=== PATIENT | male | born 1955 | race Caucasian/White ===

== ENCOUNTER 2017-03-11 22:53 | Inpatient (IN) | payer OTHER ==
[~2017-03-11] VITALS: Ht 185.4 cm; Wt 102.5 kg
[2017-03-11 23:17] VITALS: BP 130/64; PULSE 73; RESP 16; TEMP 98.6; O2SAT 100
[2017-03-12] VITALS (13 sets, daily range): BP systolic 143–187; BP diastolic 67–95; PULSE 66–88; RESP 16–18; TEMP 97.8–99.3; O2SAT 94–100
--- NOTE | 2017-03-12 02:02 | PD ---
HPI Chief Complaint: Injury Time Seen by Provider: 01:57 Travel History International Travel<30 days: No Contact w/Intl Traveler<30days: No Traveled to known affect area: No History of Present Illness HPI 62-year-old male arrives to the ER with right knee pain. He tripped on a curb and in a twisting fashion causing sudden onset severe pain in the right knee. He has been in constant severe pain since. Movement worsens the pain severity. Palpation worsens the pain severity. The injury occurred a few hours prior to ER arrival. No head injury. Or extremity injury otherwise. [facility] Past Medical History Diabetes: Yes Endocrine: Yes (DIABETIC DIET CONTROLLED ) Gout: Yes Past Surgical History Joint Replacement: Yes (RIGHT HIP) Pacemaker: No Tympanostomy Tube: Yes Social History Alcohol Use: Yes (OCC) Tobacco Use: No (STATES HE CHEWS NOW) Substance Use: No (BEER ONLY ) Allergies-Medications (Allergen,Severity, Reaction): Coded Allergies: No Known Allergies (Verified , 05/25/16) Reported Meds & Prescriptions Reported Meds & Active Scripts Active No Active Prescriptions or Reported Medications Review of Systems Except as stated in HPI: all other systems reviewed are Neg General / Constitutional: No: Fever Musculoskeletal: Positive: Pain Physical Exam Narrative GENERAL: 22-year-old male well-nourished well-developed moderate distress SKIN: Focused skin assessment warm/dry. HEAD: Atraumatic. Normocephalic. EYES: Pupils equal and round. No scleral icterus. No injection or drainage. ENT: No nasal bleeding or discharge. Mucous membranes pink and moist. NECK: Trachea midline. No JVD. CARDIOVASCULAR: Regular rate and rhythm. No murmur appreciated. RESPIRATORY: No accessory muscle use. Clear to auscultation. Breath sounds equal bilaterally. GASTROINTESTINAL: Abdomen soft, non-tender, nondistended. Hepatic and splenic margins not palpable. MUSCULOSKELETAL: Marked swelling generalized tenderness at the right knee. 2+ dorsalis pedis bilaterally. NEUROLOGICAL: Awake and alert. No obvious cranial nerve deficits. Motor grossly within normal limits. Normal speech. PSYCHIATRIC: Appropriate mood and affect; insight and judgment normal. Data Data Last Documented VS Vital Signs Date Time Temp Pulse Resp B/P Pulse Ox O2 Delivery O2 Flow Rate FiO2 03/12/17 04:43 79 18 163/83 99 Room Air 03/11/17 23:17 98.6 Vital signs reviewed Orders Iv Access Insert/Monitor (03/12/17 02:01) Oximetry (03/12/17 02:01) Ecg Monitoring (03/12/17 02:01) Ondansetron Inj (Zofran Inj) (03/12/17 02:15) Sodium Chloride 0.9% Flush (Ns Flush) (03/12/17 02:15) Hydromorphone Pf Inj (Dilaudid Pf Inj) (03/12/17 02:15) Lidocai-Epi 1%-1:100,000 Inj (Xylocaine- (03/12/17 02:15) Canvas Knee Splint (Cks) (03/12/17 ) Knee, Ltd (1 Or 2vws) (03/12/17 ) Lidocai-Epi 1%-1:100,000 Inj (Xylocaine- (03/12/17 02:31) Comprehensive Metabolic Panel (03/12/17 03:13) Prothrombin Time / Inr (Pt) (03/12/17 03:13) Act Partial Throm Time (Ptt) (03/12/17 03:13) Ondansetron Inj (Zofran Inj) (03/12/17 03:15) Sodium Chloride 0.9% Flush (Ns Flush) (03/12/17 03:15) Hydromorphone Pf Inj (Dilaudid Pf Inj) (03/12/17 03:15) Complete Blood Count With Diff (03/12/17 03:45) Hydromorphone Pf Inj (Dilaudid Pf Inj) (03/12/17 04:30) Admit Order (Ed Use Only) (03/12/17 04:46) Consult Orthopedic (03/12/17 ) Labs Laboratory Tests Test 03/12/17 03/12/17 03:20 03:55 Prothrombin Time 11.6 SEC Prothromb Time International 1.0 RATIO Ratio Activated Partial 27.5 SEC Thromboplast Time Sodium Level 134 MEQ/L Potassium Level 3.5 MEQ/L Chloride Level 98 MEQ/L Carbon Dioxide Level 20.7 MEQ/L Anion Gap 15 MEQ/L Blood Urea Nitrogen 6 MG/DL Creatinine 0.87 MG/DL Estimat Glomerular Filtration 89 ML/MIN Rate Random Glucose 163 MG/DL Calcium Level 8.9 MG/DL Total Bilirubin 1.0 MG/DL Aspartate Amino Transf 29 U/L (AST/SGOT) Alanine Aminotransferase 31 U/L (ALT/SGPT) Alkaline Phosphatase 76 U/L Total Protein 7.7 GM/DL Albumin 3.8 GM/DL White Blood Count 14.1 TH/MM3 Red Blood Count 4.38 MIL/MM3 Hemoglobin 14.2 GM/DL Hematocrit 41.6 % Mean Corpuscular Volume 95.0 FL Mean Corpuscular Hemoglobin 32.4 PG Mean Corpuscular Hemoglobin 34.1 % Concent Red Cell Distribution Width 12.4 % Platelet Count 205 TH/MM3 Mean Platelet Volume 9.4 FL Neutrophils (%) (Auto) 83.7 % Lymphocytes (%) (Auto) 9.2 % Monocytes (%) (Auto) 6.5 % Eosinophils (%) (Auto) 0.1 % Basophils (%) (Auto) 0.5 % Neutrophils # (Auto) 11.8 TH/MM3 Lymphocytes # (Auto) 1.3 TH/MM3 Monocytes # (Auto) 0.9 TH/MM3 Eosinophils # (Auto) 0.0 TH/MM3 Basophils # (Auto) 0.1 TH/MM3 CBC Comment AUTO DIFF Differential Comment AUTO DIFF CONFIRMED Platelet Estimate NORMAL Platelet Morphology Comment NORMAL Red Cell Morphology Comment NORMAL MDM Medical Decision Making Medical Screen Exam Complete: Yes Emergency Medical Condition: Yes Medical Record Reviewed: Yes Differential Diagnosis Femur fracture, tibia fracture, compartment syndrome, arterial avulsion, ligamentous injury Narrative Course CBC & BMP Diagram 03/12/17 03:20 03/12/17 03:55 LFTs normal INR 1.0 Last 24 hours Impressions Knee X-Ray 03/12/17 0000 Signed Impressions: Service Date/Time: Sunday, March 12, 2017 02:18 - CONCLUSION: 1. Comminuted intra-articular fracture of distal femur with mild displacement. Also mildly displaced medial tibial plateau fracture. John Kwan MD Patient will be admitted for treatment of his right lower extremity injury. Long posterior splint applied with ice cuff. Case discussed with Dr Choudhary. Diagnosis Primary Impression: Femur fracture Qualified Code: S72.351A - Closed displaced comminuted fracture of shaft of right femur, initial encounter Additional Impression: Tibia fracture Qualified Code: S82.101A - Closed fracture of proximal end of right tibia, unspecified fracture morphology, initial encounter Admitting Information Admitting Physician Requests: Admit Scripts No Active Prescriptions or Reported Meds Federico Wolf MD March 12, 2017 02:02
[2017-03-12] MEDS ORDERED: LIDOCAINE 1%/EPINEPHrine 1:100,000 SOLN 20 ML VIAL INFIL ONE (02:15)
[2017-03-12] MEDS ORDERED: ONDANSETRON HCL 4 MG/2 ML VIAL IVP ONE ×2 (02:15→03:15)
[2017-03-12] MEDS ORDERED: SODIUM CHLORIDE 0.9% FLUSH 10 ML FLUSH IVF PRN ×2 (02:15→03:15)
[2017-03-12] MEDS ORDERED: HYDROmorphone HCL PF 1 MG/ML VIAL IVS ONE ×2 (02:15→03:15)
[2017-03-12] MEDS ORDERED: LIDOCAINE 1%/EPINEPHrine 1:100,000 SOLN 20 ML VIAL ONE (02:31)
--- NOTE | 2017-03-12 02:58 | RADRPT ---
EXAM DATE/TIME: 03/12/2017 02:18 [facility] COMPARISON: No previous studies available for comparison. INDICATIONS : Patient complains of right knee pain. States he fell last night landing on right knee. MEDICAL HISTORY : None. SURGICAL HISTORY : None. ENCOUNTER: Initial ACUITY: 2 days PAIN SCORE: 10/10 LOCATION: Right Knee FINDINGS: There is a comminuted intra-articular fracture of the distal femur and a slightly comminuted fracture through the medial tibial plateau. Joint effusion present. Bones are osteopenic. CONCLUSION: 1. Comminuted intra-articular fracture of distal femur with mild displacement. Also mildly displaced medial tibial plateau fracture. John Kwan MD on March 12, 2017 at 2:55 Board Certified Radiologist. This report was verified electronically.
[2017-03-12 03:57] LABS: ALT (GPT) 31 U/L (12-78); ANION GAP 15 MEQ/L (5-15); AST (GOT) 29 U/L (15-37); BICARBONATE 20.7 MEQ/L (21.0-32.0); BLOOD UREA NITROGEN 6 MG/DL (7-18); CHLORIDE 98 MEQ/L (98-107); GLOMERULAR FILTRATION RATE 89 ML/MIN (>89); POTASSIUM 3.5 MEQ/L (3.5-5.1); SODIUM (NA) 134 MEQ/L (136-145)
[2017-03-12 03:59] LABS: ALKALINE PHOSPHATASE 76 U/L (45-117)
[2017-03-12 04:07] LABS: APTT (PATIENT) 27.5 SEC (24.3-30.1); PROTHROMBIN TIME - PATIENT 11.6 SEC (9.8-11.6)
[2017-03-12 04:24] LABS: AUTOMATED NEUTROPHIL # 11.8 TH/MM3 (1.8-7.7); BASOPHIL # 0.1 TH/MM3 (0-0.2); BASOPHIL % 0.5 % (0.0-2.0); EOSINOPHIL % 0.1 % (0.0-4.0); HEMATOCRIT 41.6 % (39.0-51.0); LYMPH % 9.2 % (9.0-44.0); LYMPHOCYTE # 1.3 TH/MM3 (1.0-4.8); MEAN CORPUSCULAR HEMOGLOBIN 32.4 PG (27.0-34.0); MEAN CORPUSCULAR HGB CONC 34.1 % (32.0-36.0); MONO % 6.5 % (0.0-8.0); NEUT % 83.7 % (16.0-70.0); PLATELET COUNT 205 TH/MM3 (150-450); RED BLOOD COUNT 4.38 MIL/MM3 (4.50-5.90); RED CELL DISTRIBUTION WIDTH 12.4 % (11.6-17.2); WHITE BLOOD COUNT 14.1 TH/MM3 (4.0-11.0)
[2017-03-12] MEDS ORDERED: HYDROmorphone HCL PF 1 MG/ML VIAL IV PUSH ONE (04:30)
[2017-03-12 04:31] LABS: HEMO FLAGS AUTO DIFF
[2017-03-12 04:58] LABS: PLATELET ESTIMATE SMEAR NORMAL (NORMAL); PLATELET MORPHOLOGY NORMAL (NORMAL); SCAN/DIFF AUTO DIFF CONFIRMED
[2017-03-12] MEDS ORDERED: SODIUM CHLORIDE 0.9% FLUSH 10 ML FLUSH IV FLUSH PRN (05:00)
[2017-03-12] MEDS ORDERED: HYDROmorphone HCL PF 1 MG/ML VIAL IV PUSH PRN (05:00)
[2017-03-12] MEDS ORDERED: ONDANSETRON HCL 4 MG/2 ML VIAL IVP PRN (05:00)
--- NOTE | 2017-03-12 07:02 | RADRPT ---
EXAM DATE/TIME: 03/12/2017 06:52 [facility] COMPARISON: No previous studies available for comparison. INDICATIONS : Right femur pain. MEDICAL HISTORY : None. SURGICAL HISTORY : Right hip replacement. ENCOUNTER: Initial ACUITY: 1 day PAIN SCORE: 5/10 LOCATION: Right hip. FINDINGS: There is a fracture of distal femur at the junction of metaphysis and diaphysis. Total hip arthroplas ty is seen and there is acetabular protrusio with acetabular angle of almost 90 of the acetabular co mponent. There is almost 2.4 cm lucency around the femoral component and the femoral head component a ppears to be outside of the acetabular component with a displaced fragment of screw superolaterally t hrough the acetabulum. CONCLUSION: There is a fracture of distal femur and loosening of the acetabular component with a fractured screw and the femoral head component appears to be outside of the acetabular component. Maritza Zavaleta MD on March 12, 2017 at 6:58 Board Certified Radiologist. This report was verified electronically.
[2017-03-12] MEDS: SODIUM CHLORIDE 0.9% FLUSH 10 ML FLUSH IV FLUSH SCH ×2 (08:39→21:09)
--- NOTE | 2017-03-12 11:34 | HHI.HP ---
[facility] Primary [facility] Physician No Primary Care Physician Admission Diagnosis R Femur/R Tibia Fracture Diagnoses: Chief Complaint: right knee pain Travel History International Travel<30 Days: No Contact w/Intl Traveler <30 Da: No Traveled to Known Affected Are: No History of Present Illness 62 y/o with a history of DM and gout presented to the ED with complaints of rt knee pain after tripping on a curb and falling. Patient states his rt hip replacement has been out of place for the last 14 months, and he has not gotten it checked out. He walks with a walk and that usually keeps him pretty balanced , but states he stepped off the curb and the his knee gave out and he fell. He tried to lay down but the pain continued, he states it is throbbing, 8/10, and pain is worse with movement. States Dilaudid is helping just not lasting longer than an hour. He is able to wiggle his toes, no numbness or tingling noted. Denies any chest pain, sob, fever or chills. Review of Systems Constitutional: DENIES: Fever, Chills Respiratory: DENIES: Cough, Sputum production, Shortness of breath Cardiovascular: DENIES: Chest pain, Lower Extremity Edema Gastrointestinal: DENIES: Constipation, Diarrhea, Nausea, Vomiting Genitourinary: DENIES: Hematuria, Dysuria Musculoskeletal: COMPLAINS OF: Joint pain, Joint Swelling, DENIES: Back pain, Neck pain Integumentary: DENIES: Rash Neurologic: DENIES: Headache Past Family Social History Past Medical History DM (diet controlled) Gout Past Surgical History RT hip replacement Cervical spine fusion C5-C6 Multiple hernia repair Reported Medications Reported Meds & Active Scripts Active No Active Prescriptions or Reported Medications Allergies: Coded Allergies: No Known Allergies (Verified , 05/25/16) Active Ordered Medications Current Medications Medications (Trade) Dose Ordered Sig/Janae Route Start Time Stop Time Status Last Admin (NS Flush) 2 ml UNSCH PRN IV FLUSH 03/12/17 05:00 (NS Flush) 2 ml BID IV FLUSH 03/12/17 09:00 03/12/17 08:39 (Zofran Inj) 4 mg Q6H PRN IVP 03/12/17 05:00 (Narcan Inj) 0.4 mg UNSCH PRN IV 03/12/17 05:00 (Dilaudid Pf Inj) 1 mg Q4H PRN IV PUSH 03/12/17 05:00 03/12/17 08:40 Family History Mom and Dad: Hypertension Social History Tobacco use: 1/2 PPD Alcohol use: A few beers every couple of days Illicit drug use: denies Physical Exam Vital Signs Vital Signs Date Time Temp Pulse Resp B/P Pulse Ox O2 Delivery O2 Flow Rate FiO2 03/12/17 07:48 97.8 80 18 160/84 95 03/12/17 06:15 84 18 159/72 98 03/12/17 04:43 79 18 163/83 99 Room Air 03/12/17 03:19 83 18 187/93 100 Room Air 03/12/17 02:14 88 18 143/67 97 Room Air 03/12/17 02:00 Room Air 03/11/17 23:17 98.6 73 16 130/64 100 Physical Exam GENERAL: This is a well-nourished, well-developed patient, in moderate amount of pain SKIN: No rashes, ecchymoses or lesions. Cool and dry. HEAD: Atraumatic. Normocephalic. No temporal or scalp tenderness. EYES: Pupils equal round and reactive. Extraocular motions intact. ENT: Nose without bleeding, purulent drainage or septal hematoma. Airway patent. NECK: Trachea midline. No JVD or lymphadenopathy. CARDIOVASCULAR: Regular rate and rhythm without murmurs, gallops, or rubs. RESPIRATORY: Clear to auscultation. Breath sounds equal bilaterally. No wheezes , rales, or rhonchi. GASTROINTESTINAL: Abdomen soft, non-tender, nondistended. No hepato-splenomegaly , or palpable masses. No guarding. MUSCULOSKELETAL: Minimal movement with rt leg, able to wiggle toes. No calf tenderness. NEUROLOGICAL: Awake and alert. Motor and sensory grossly within normal limits. Normal speech. Laboratory Laboratory Tests Test 03/12/17 03/12/17 03:20 03:55 Prothrombin Time 11.6 Prothromb Time International 1.0 Ratio Activated Partial 27.5 Thromboplast Time Sodium Level 134 Potassium Level 3.5 Chloride Level 98 Carbon Dioxide Level 20.7 Anion Gap 15 Blood Urea Nitrogen 6 Creatinine 0.87 Estimat Glomerular Filtration 89 Rate Random Glucose 163 Calcium Level 8.9 Total Bilirubin 1.0 Aspartate Amino Transf 29 (AST/SGOT) Alanine Aminotransferase 31 (ALT/SGPT) Alkaline Phosphatase 76 Total Protein 7.7 Albumin 3.8 White Blood Count 14.1 Red Blood Count 4.38 Hemoglobin 14.2 Hematocrit 41.6 Mean Corpuscular Volume 95.0 Mean Corpuscular Hemoglobin 32.4 Mean Corpuscular Hemoglobin 34.1 Concent Red Cell Distribution Width 12.4 Platelet Count 205 Mean Platelet Volume 9.4 Neutrophils (%) (Auto) 83.7 Lymphocytes (%) (Auto) 9.2 Monocytes (%) (Auto) 6.5 Eosinophils (%) (Auto) 0.1 Basophils (%) (Auto) 0.5 Neutrophils # (Auto) 11.8 Lymphocytes # (Auto) 1.3 Monocytes # (Auto) 0.9 Eosinophils # (Auto) 0.0 Basophils # (Auto) 0.1 CBC Comment AUTO DIFF Differential Comment AUTO DIFF CONFIRMED Platelet Estimate NORMAL Platelet Morphology Comment NORMAL Red Cell Morphology Comment NORMAL Result Diagram: 03/12/17 0355 03/12/17 0320 Imaging Last Impressions Femur X-Ray 03/12/17 0634 Signed Impressions: Service Date/Time: Sunday, March 12, 2017 06:52 - CONCLUSION: There is a fracture of distal femur and loosening of the acetabular component with a fractured screw and the femoral head component appears to be outside of the acetabular component. Maritza Zavaleta MD Knee X-Ray 03/12/17 0000 Signed Impressions: Service Date/Time: Sunday, March 12, 2017 02:18 - CONCLUSION: 1. Comminuted intra-articular fracture of distal femur with mild displacement. Also mildly displaced medial tibial plateau fracture. John Kwan MD Assessment and Plan Problem List: (1) Femur fracture ICD Code: S72.90XA Status: Acute (2) Diabetes ICD Code: E11.9 Status: Chronic (3) Leukocytosis ICD Code: D72.829 Status: Acute Assessment and Plan 62 y/o with a history of DM and gout presented to the ED with complaints of rt knee pain after tripping on a curb and falling. Rt Femur Fx, Femur xray shows there is a fracture of distal femur and loosening of the acetabular component with a fractured screw and the femoral head component appears to be outside of the acetabular component. -Consult ortho for recommendations -Pain management with IV Dilaudid, increased to 1mg Q3hr -ICE to knee Diabetes, chronic, diet controlled, BG on labs 163, likely poorly controlled -Check A1C -Accu checks AC/HS with low dose SSI -Diabetic diet when no longer npo Leukocytosis, likely reactive, wbc 14.1 -CBC in AM, and trend Hypertension, acute, likely due to pain -Clonidine PRN, and monitor vitals DVT prophylaxis: SCDs, anticoagulation per ortho Discussed with Dr. Davis Discussed Condition With Patient, RN, and Dr. Davis The exam, history, and the medical decision-making described in the above note were completed with the assistance of the mid-level provider. I reviewed and agree with the findings presented. I attest that I had a [id number] encounter with the patient on the same day, and personally performed and documented my assessment and findings in the medical record.patient seen and examined on date of service. Patient seen on medical floor. Right leg immobilized. Patient reports pain is moderately well controlled. Denies any chest pain or shortness of breath. Peripheral perfusion is intact. Appreciate orthopedic assistance. Physician Certification 2 Midnight Certification Type: Admission for Inpatient Services Order for Inpatient Services The services are ordered in accordance with Medicare regulations or non- Medicare payer requirements, as applicable. In the case of services not specified as inpatient-only, they are appropriately provided as inpatient services in accordance with the 2-midnight benchmark. Estimated LOS (days): 3 days is the estimated time the patient will need to remain in the hospital, assuming treatment plan goals are met and no additional complications. Post-Hospital Plan: Home Problem Qualifiers (1) Femur fracture: Qualified Code: S72.351A - Closed displaced comminuted fracture of shaft of right femur, initial encounter (2) Diabetes: Qualified Code: E11.9 - Type 2 diabetes mellitus without complication, without long-term current use of insulin (3) Leukocytosis: Qualified Code: D72.829 - Leukocytosis, unspecified type Marilyn Diaz March 12, 2017 11:34 Bethel Davis MD March 13, 2017 12:20
[2017-03-12] MEDS ORDERED: GLUCAGON 1 MG/ML VIAL OTHER PRN (12:00)
[2017-03-12] MEDS ORDERED: DEXTROSE 50% IN WATER 50 ML VIAL(D50) IV PRN (12:00)
[2017-03-12] MEDS: HYDROmorphone HCL PF 1 MG/ML VIAL IV PUSH PRN ×4 (12:05→21:12)
[2017-03-12] MEDS ORDERED: cloNIDine HCL 0.1 MG TAB PO PRN (12:45)
[2017-03-12 14:07] LABS: HEMOGLOBIN A1a 1.5 %; HEMOGLOBIN A1b 1.4 %; HEMOGLOBIN Ao 84.6 %; HEMOGLOBIN LA1C 2.6 %; HEMOGLOBIN P3 3.6 %
[2017-03-12] MEDS ORDERED: oxyCODONE/ACETAMINOPHEN 5 MG/325 MG TAB PO STA (14:51)
[2017-03-12] MEDS: INSULIN ASPART SUPPLEMENTAL SCALE SQ SCH ×2 (15:44→21:09)
[2017-03-12] MEDS: oxyCODONE/ACETAMINOPHEN 5 MG/325 MG TAB PO PRN (19:50)
--- NOTE | 2017-03-12 20:35 | PD.CONS ---
cc: Yuri Bartlett Jr., MD HPI Service Orthopedic Surgeons Consult Requested By Primary Care Physician No Primary Care Physician Admission Diagnosis R Femur/R Tibia Fracture Diagnoses: (1) Femur fracture (2) Diabetes (3) Leukocytosis Chief Complaint: #1Right distal femur and right #2right tibial plateau fracture #3chronically dislocated right total hip arthroplasty History of Present Illness 62-year-old male with a history of diabetes and gout presented to the emergency department after a fall complaining of right knee pain. Patient had a total hip replacement that has been chronically dislocated for the past 14 months without seeking medical Treatment. He uses a walker. He tripped while walking over a curb. X-ray taken the emergency department reveal displaced right distal femur fracture, minimally displaced medial plateau fracture as well as chronically dislocated right total hip arthroplasty with protrusion of the acetabular cup. Denies any head injuries. Denies loss of consciousness. Currently patient's pain is 3 out of 10, exacerbated by any range of motion, relieved at rest and with IV pain medicine, pain is sharp nonradiating, not associated with any paresthesia and numbness to the right lower extremity. ROS - General Review of Systems Constitutional: DENIES: Fever, Chills Respiratory: DENIES: Cough, Sputum production, Shortness of breath Cardiovascular: DENIES: Chest pain, Lower Extremity Edema Gastrointestinal: DENIES: Constipation, Diarrhea, Nausea, Vomiting Genitourinary: DENIES: Hematuria, Dysuria Musculoskeletal: COMPLAINS OF: Joint pain, Joint Swelling, DENIES: Back pain, Neck pain Integumentary: DENIES: Rash Neurologic: DENIES: Headache PFSH Past Family Social History Past Medical History DM (diet controlled) Gout Past Surgical History RT hip replacement Cervical spine fusion C5-C6 Multiple hernia repair Reported Medications Reported Meds & Active Scripts Active No Active Prescriptions or Reported Medications Allergies: Coded Allergies: No Known Allergies (Verified , 05/25/16) Active Ordered Medications Current Medications Medications (Trade) Dose Ordered Sig/Janae Route Start Time Stop Time Status Last Admin (NS Flush) 2 ml UNSCH PRN IV FLUSH 03/12/17 05:00 (NS Flush) 2 ml BID IV FLUSH 03/12/17 09:00 03/12/17 08:39 (Zofran Inj) 4 mg Q6H PRN IVP 03/12/17 05:00 (Narcan Inj) 0.4 mg UNSCH PRN IV 03/12/17 05:00 (Dilaudid Pf Inj) 1 mg Q4H PRN IV PUSH 03/12/17 05:00 03/12/17 08:40 Family History Mom and Dad: Hypertension Social History Tobacco use: 1/2 PPD Alcohol use: A few beers every couple of days Illicit drug use: denies Past Family Social History Past Medical History DM (diet controlled) Gout Past Surgical History RT hip replacement Cervical spine fusion C5-C6 Multiple hernia repair Allergies: Coded Allergies: No Known Allergies (Verified , 05/25/16) Active Ordered Medications Current Medications Medications (Trade) Dose Ordered Sig/Janae Route Start Time Stop Time Status Last Admin (NS Flush) 2 ml UNSCH PRN IV FLUSH 03/12/17 05:00 (NS Flush) 2 ml BID IV FLUSH 03/12/17 09:00 03/12/17 08:39 (Zofran Inj) 4 mg Q6H PRN IVP 03/12/17 05:00 (Narcan Inj) 0.4 mg UNSCH PRN IV 03/12/17 05:00 (Dilaudid Pf Inj) 1 mg Q3H PRN IV PUSH 03/12/17 12:00 03/12/17 17:51 (D50w (Vial) Inj) 50 ml UNSCH PRN IV 03/12/17 12:00 (Glucagon Inj) 1 mg UNSCH PRN OTHER 03/12/17 12:00 (Catapres) 0.1 mg Q6H PRN PO 03/12/17 12:45 (Percocet 5-325 Mg) 1 tab Q3H PRN PO 03/12/17 18:00 03/12/17 19:50 Reported Meds & Active Scripts Active No Active Prescriptions or Reported Medications Family History Mom and Dad: Hypertension Social History Tobacco use: 1/2 PPD Alcohol use: A few beers every couple of days Illicit drug use: denies Physical Exam Vital Signs Vital Signs Date Time Temp Pulse Resp B/P Pulse Ox O2 Delivery O2 Flow Rate FiO2 03/12/17 20:00 98.4 75 18 158/82 98 03/12/17 16:51 98.6 66 18 160/94 97 03/12/17 16:51 97 Room Air 03/12/17 16:00 98.6 72 18 160/95 97 03/12/17 14:00 98.0 73 18 172/95 96 03/12/17 13:27 72 03/12/17 13:27 99.3 75 16 172/95 97 03/12/17 13:16 Room Air 03/12/17 12:50 72 18 172/85 03/12/17 11:40 98.8 73 18 183/92 94 03/12/17 07:48 97.8 80 18 160/84 95 03/12/17 06:15 84 18 159/72 98 03/12/17 04:43 79 18 163/83 99 Room Air 03/12/17 03:19 83 18 187/93 100 Room Air 03/12/17 02:14 88 18 143/67 97 Room Air 03/12/17 02:00 Room Air 03/11/17 23:17 98.6 73 16 130/64 100 Physical Exam Alert awake and oriented -3. No acute distress. Pulmonary: Normal respiratory effort. Bilateral upper extremity: Neurovascularly intact. No deformities. Soft compartments. No pain along bony anatomy. Full range of motion at the wrists, elbows and shoulders. Right lower extremity: Knee immobilizer in place. Deformity at the hip and right knee. Swelling of the right distal femur. Tender palpation about the knee. weak EHL/FHL + PT/DP pulses. Supple compartments. Negative Homans sign. Left lower extremity: neurovascularly intact Laboratory Laboratory Tests Test 03/12/17 03/12/17 03:20 03:55 Prothrombin Time 11.6 Prothromb Time International 1.0 Ratio Activated Partial 27.5 Thromboplast Time Sodium Level 134 Potassium Level 3.5 Chloride Level 98 Carbon Dioxide Level 20.7 Anion Gap 15 Blood Urea Nitrogen 6 Creatinine 0.87 Estimat Glomerular Filtration 89 Rate Random Glucose 163 Calcium Level 8.9 Total Bilirubin 1.0 Aspartate Amino Transf 29 (AST/SGOT) Alanine Aminotransferase 31 (ALT/SGPT) Alkaline Phosphatase 76 Total Protein 7.7 Albumin 3.8 White Blood Count 14.1 Red Blood Count 4.38 Hemoglobin 14.2 Hematocrit 41.6 Mean Corpuscular Volume 95.0 Mean Corpuscular Hemoglobin 32.4 Mean Corpuscular Hemoglobin 34.1 Concent Red Cell Distribution Width 12.4 Platelet Count 205 Mean Platelet Volume 9.4 Neutrophils (%) (Auto) 83.7 Lymphocytes (%) (Auto) 9.2 Monocytes (%) (Auto) 6.5 Eosinophils (%) (Auto) 0.1 Basophils (%) (Auto) 0.5 Neutrophils # (Auto) 11.8 Lymphocytes # (Auto) 1.3 Monocytes # (Auto) 0.9 Eosinophils # (Auto) 0.0 Basophils # (Auto) 0.1 CBC Comment AUTO DIFF Differential Comment AUTO DIFF CONFIRMED Platelet Estimate NORMAL Platelet Morphology Comment NORMAL Red Cell Morphology Comment NORMAL Hemoglobin A1c 5.9 Result Diagram: 03/12/17 0355 03/12/17 0320 Imaging Last 72 hours Impressions Femur X-Ray 03/12/17 0634 Signed Impressions: Service Date/Time: Sunday, March 12, 2017 06:52 - CONCLUSION: There is a fracture of distal femur and loosening of the acetabular component with a fractured screw and the femoral head component appears to be outside of the acetabular component. Maritza Zavaleta MD Knee X-Ray 03/12/17 0000 Signed Impressions: Service Date/Time: Sunday, March 12, 2017 02:18 - CONCLUSION: 1. Comminuted intra-articular fracture of distal femur with mild displacement. Also mildly displaced medial tibial plateau fracture. John Kwan MD Assessment & Plan Assessment and Plan 62-year-old male with a history of diabetes and gout presented to the emergency department after a fall complaining of right knee pain. Patient had a total hip replacement that has been chronically dislocated for the past 14 months without seeking medical Treatment. He uses a walker. He tripped while walking over a curb. X-ray taken the emergency department reveal displaced right distal femur fracture, minimally displaced medial plateau fracture as well as chronically dislocated right total hip arthroplasty with protrusion of the acetabular cup. As for as his fractures he will require open reduction internal fixation of the right distal femur with possible fixation of the right plateau fracture. As for as his right hip chronic dislocation, this will require revision hip arthroplasty after hip infection has been ruled out. Right hip aspiration ordered. CAT scan of the right distal femur and tibial plateau. Maintain knee immobilizer Nonweightbearing right lower extremity Fixation of his fractures are of a first priority. His chronic right hip dislocation will need to be staged and will likely be addressed at a later date. I discussed my treatment plans with the patient, as well as risks, benefits and alternatives of surgical Intervention versus nonoperative treatment. In this case, the risks of operative intervention involves bleeding, infection, risks of damage to neurovascular structures, the risk of needing further surgery, posttraumatic arthritis and the risks involved with complication from anesthesia. The patient accepts these risks; understands and agrees with my recommendations. OR Wednesday for ORIF right distal femur and proximal tibia Thanks for the consult, thanks for allowing me to participate in this patient's medical care. Yuri Bartlett Jr., MD March 12, 2017 20:35
[2017-03-13] VITALS (7 sets, daily range): BP systolic 139–154; BP diastolic 72–87; PULSE 68–86; RESP 18; TEMP 97.5–99.4; O2SAT 95–97
[2017-03-13] MEDS: HYDROmorphone HCL PF 1 MG/ML VIAL IV PUSH PRN ×8 (00:07→23:34)
[2017-03-13] MEDS: oxyCODONE/ACETAMINOPHEN 5 MG/325 MG TAB PO PRN ×3 (01:21→10:10)
[2017-03-13 05:26] LABS: AUTOMATED NEUTROPHIL # 5.6 TH/MM3 (1.8-7.7); BASOPHIL % 0.2 % (0.0-2.0); EOSINOPHIL # 0.1 TH/MM3 (0-0.4); EOSINOPHIL % 1.8 % (0.0-4.0); HEMATOCRIT 36.6 % (39.0-51.0); HEMO FLAGS DIFF FINAL; LYMPH % 15.6 % (9.0-44.0); LYMPHOCYTE # 1.2 TH/MM3 (1.0-4.8); MEAN CELL VOLUME 95.7 FL (80.0-100.0); MEAN CORPUSCULAR HEMOGLOBIN 31.8 PG (27.0-34.0); MEAN CORPUSCULAR HGB CONC 33.2 % (32.0-36.0); MONO % 11.1 % (0.0-8.0); NEUT % 71.3 % (16.0-70.0); PLATELET COUNT 136 TH/MM3 (150-450); RED BLOOD COUNT 3.83 MIL/MM3 (4.50-5.90); RED CELL DISTRIBUTION WIDTH 12.2 % (11.6-17.2); WHITE BLOOD COUNT 7.8 TH/MM3 (4.0-11.0)
[2017-03-13 05:38] LABS: BICARBONATE 28.2 MEQ/L (21.0-32.0); POTASSIUM 3.6 MEQ/L (3.5-5.1)
[2017-03-13] MEDS: INSULIN ASPART SUPPLEMENTAL SCALE SQ SCH ×4 (06:32→22:20)
--- NOTE | 2017-03-13 07:41 | PD.ORT.PN ---
Subjective Subjective Remarks pain tolerable Range of Motion in bed, nad splint and ice RLE leg externally rotated sensation intact nvi Objective Vitals Vital Signs Date Time Temp Pulse Resp B/P Pulse Ox O2 Delivery O2 Flow Rate FiO2 03/13/17 06:00 97.5 68 18 154/87 95 03/13/17 00:00 98.4 68 18 151/81 96 03/12/17 21:00 82 03/12/17 21:00 98 Room Air 03/12/17 20:00 98.4 75 18 158/82 98 03/12/17 16:51 98.6 66 18 160/94 97 03/12/17 16:51 97 Room Air 03/12/17 16:00 98.6 72 18 160/95 97 03/12/17 14:00 98.0 73 18 172/95 96 03/12/17 13:27 72 03/12/17 13:27 99.3 75 16 172/95 97 03/12/17 13:16 Room Air 03/12/17 12:50 72 18 172/85 03/12/17 11:40 98.8 73 18 183/92 94 03/12/17 07:48 97.8 80 18 160/84 95 I/O 03/12/17 03/12/17 03/12/17 03/13/17 03/13/17 03/13/17 07:00 15:00 23:00 07:00 15:00 23:00 Intake Total 780 ml 240 ml Output Total 550 ml Balance 780 ml -310 ml Intake Oral 780 ml 240 ml Output Urine Total 550 ml # Voids 1 # Bowel Movements 0 0 Result Diagram: 03/13/17 0434 03/13/17 0434 Assessment & Plan Assessment and Plan 62-year-old male with a history of diabetes and gout presented to the emergency department after a fall complaining of right knee pain. Patient had a total hip replacement that has been chronically dislocated for the past 14 months without seeking medical Treatment. He uses a walker. He tripped while walking over a curb. X-ray taken the emergency department reveal displaced right distal femur fracture, minimally displaced medial plateau fracture as well as chronically dislocated right total hip arthroplasty with protrusion of the acetabular cup. As for as his fractures he will require open reduction internal fixation of the right distal femur with possible fixation of the right plateau fracture. As for as his right hip chronic dislocation, this will require revision hip arthroplasty after hip infection has been ruled out. Right hip aspiration ordered. CAT scan of the right distal femur and tibial plateau. Maintain knee immobilizer Nonweightbearing right lower extremity Fixation of his fractures are of a first priority. His chronic right hip dislocation will need to be staged and will likely be addressed at a later date. I discussed my treatment plans with the patient, as well as risks, benefits and alternatives of surgical Intervention versus nonoperative treatment. In this case, the risks of operative intervention involves bleeding, infection, risks of damage to neurovascular structures, the risk of needing further surgery, posttraumatic arthritis and the risks involved with complication from anesthesia. The patient accepts these risks; understands and agrees with my recommendations. OR Wednesday for ORIF right distal femur and proximal tibia patient going to radiology this morning maintain splint, unable to place Bethel Sullivan March 13, 2017 07:41
--- NOTE | 2017-03-13 08:44 | RADRPT ---
EXAM DATE/TIME: 03/13/2017 07:52 [facility] COMPARISON: KNEE RIGHT LTD (1 OR 2 VWS), March 12, 2017, 2:18. FEMUR RIGHT (1 VW), March 12, 2017, 6:52. INDICATIONS : Fall two days ago onto right knee. RADIATION DOSE: 9.54 CTDIvol (mGy) MEDICAL HISTORY : diabetes SURGICAL HISTORY : Fusion, cervical. right hip replacement ENCOUNTER: Initial ACUITY: 2 days PAIN SCALE: 8/10 LOCATION: Right knee TECHNIQUE: Volumetric scanning of the knee was performed. Using automated exposure control and adjustment of th e mA and/or kV according to patient size, radiation dose was kept as low as reasonably achievable to obtain optimal diagnostic quality images. FINDINGS: Comminuted fracture of the distal femur involving the distal femoral shaft, metastasis and vertical c omponent involving the intercondylar region extending to the joint. The fracture extends into the fem oral trochlea articular cortex. The medial and lateral femoral condyle articular cortices are grossly intact. Comminuted fracture of the proximal tibia. It involves the medial condyle with extension to the artic ular cortex. Mild depression of the central medial femoral condyle fragment noted. The fracture line extends horizontally and involves the medial aspect of the lateral tibial condyle articular cortex. M inimal displacement at the lateral condyle component. Moderate-sized joint effusion with lipohemarthrosis noted. CONCLUSION: Comminuted fractures of the distal femur and proximal tibia with intra-articular involvement. Oscar Boyd MD on March 13, 2017 at 8:34 Board Certified Radiologist. This report was verified electronically.
[2017-03-13] MEDS: SODIUM CHLORIDE 0.9% FLUSH 10 ML FLUSH IV FLUSH SCH ×2 (09:49→23:34)
--- NOTE | 2017-03-13 10:16 | HHI.PR ---
Subjective Remarks Patient seen for follow up right femur fracture. 03/13/17-patient seen this morning. No acute events overnight. SBP up to the 150s this morning. Other vitals WNL. Main complaint this morning is of pain not controlled with percocet or dilaudid. Percocet "doesn't touch the pain" and dilaudid "wears off after 30 minutes". Patient does have h/o opiate abuse. Last year was seen in ED for opiate overdose (ate a fentanyl patch). Endorses using friend's methadone around 2 weeks ago. No other complaints at that time. No CP, SOB, or F/C. Objective Vitals Vital Signs Date Time Temp Pulse Resp B/P Pulse Ox O2 Delivery O2 Flow Rate FiO2 03/13/17 06:00 97.5 68 18 154/87 95 03/13/17 00:00 98.4 68 18 151/81 96 03/12/17 21:00 82 03/12/17 21:00 98 Room Air 03/12/17 20:00 98.4 75 18 158/82 98 03/12/17 16:51 98.6 66 18 160/94 97 03/12/17 16:51 97 Room Air 03/12/17 16:00 98.6 72 18 160/95 97 03/12/17 14:00 98.0 73 18 172/95 96 03/12/17 13:27 72 03/12/17 13:27 99.3 75 16 172/95 97 03/12/17 13:16 Room Air 03/12/17 12:50 72 18 172/85 03/12/17 11:40 98.8 73 18 183/92 94 I/O 03/12/17 03/12/17 03/12/17 03/13/17 03/13/17 03/13/17 07:00 15:00 23:00 07:00 15:00 23:00 Intake Total 780 ml 240 ml Output Total 550 ml Balance 780 ml -310 ml Intake Oral 780 ml 240 ml Output Urine Total 550 ml # Voids 1 # Bowel Movements 0 0 Result Diagram: 03/13/17 0434 03/13/17 0434 Objective Remarks GENERAL: This is a well-nourished, well-developed patient, in moderate amount of pain. SKIN: No rashes, ecchymoses or lesions. Cool and dry. HEAD: Atraumatic. Normocephalic. No temporal or scalp tenderness. EYES: pupils 3-4 mm. Reactive. CARDIOVASCULAR: Regular rate and rhythm without murmurs, gallops, or rubs. RESPIRATORY: Clear to auscultation. Breath sounds equal bilaterally. No wheezes , rales, or rhonchi. GASTROINTESTINAL: Abdomen soft, non-tender, nondistended. No hepato-splenomegaly , or palpable masses. No guarding. MUSCULOSKELETAL: Minimal movement with rt leg, able to wiggle toes. No calf tenderness. In right knee splint. NEUROLOGICAL: Awake and alert. Motor and sensory grossly within normal limits. Normal speech. A/P Problem List: (1) Femur fracture ICD Code: S72.90XA Status: Acute (2) Diabetes ICD Code: E11.9 Status: Chronic (3) Leukocytosis ICD Code: D72.829 Status: Acute Assessment and Plan 62 y/o with a history of DM and gout presented to the ED with complaints of rt knee pain after tripping on a curb and falling. Rt Femur Fx, Femur xray shows there is a fracture of distal femur and loosening of the acetabular component with a fractured screw and the femoral head component appears to be outside of the acetabular component. -Ortho consulted. Checking CT hip. Plan for ORIF Wednesday. Appears to have chronic hip dislocation, as well. Will need to r/o infection with CT-guided hip aspiration. Can be revised at a later date once infection r/o. -discontinue percocet. Change pain regimen to roxicodone 5mg q4 PRN pain scale 5-7, roxicodone 10mg q4 PRN pain scale 8-10, and dilaudid 1mg IV for breakthrough only. -ICE + splint to knee Diabetes, chronic, diet controlled, BG on labs 163, likely poorly controlled -A1c 5.9 -Accu checks AC/HS with low dose SSI. 2u requirement over the past 24 hours. Leukocytosis, likely reactive, wbc 14.1 -resolved. Likely stress RXN from injury. Hypertension, acute, likely due to pain -Clonidine PRN, and monitor vitals DVT prophylaxis: SCDs, anticoagulation per ortho Problem Qualifiers (1) Femur fracture: Qualified Code: S72.351A - Closed displaced comminuted fracture of shaft of right femur, initial encounter (2) Diabetes: Qualified Code: E11.9 - Type 2 diabetes mellitus without complication, without long-term current use of insulin (3) Leukocytosis: Qualified Code: D72.829 - Leukocytosis, unspecified type Brian Moeller MD R3 March 13, 2017 10:16
[2017-03-13] MEDS: MAGNESIUM HYDROXIDE SUSP 30 ML CUP PO PRN (12:01)
--- NOTE | 2017-03-13 14:16 | RADRPT ---
EXAM DATE/TIME: 03/13/2017 11:02 [facility] COMPARISON: No previous studies available for comparison. INDICATIONS : Fluid collection. MEDICAL HISTORY : Arthritis. Gout. Diabetes. SURGICAL HISTORY : Myringotomy tubes. Tympanostomy tube. Cleft palate repair. Hernia repair. Right hip. Plate in neck. C 5-C6 fusion. ENCOUNTER: Initial ACUITY: 2 days PAIN SCORE: 5/10 LOCATION: Right hip. AREA EVALUATED: Right hip. FINDINGS: MASSES: None. FLUID COLLECTIONS: None. OTHER: Negative. CONCLUSION: Focused sonographic examination in the region of the right hip was performed. No focal fluid collecti ons identified. Oscar Boyd MD on March 13, 2017 at 14:14 Board Certified Radiologist. This report was verified electronically.
[2017-03-14] VITALS (7 sets, daily range): BP systolic 129–167; BP diastolic 66–91; PULSE 71–88; RESP 18–22; TEMP 97.8–99.6; O2SAT 95–99
[2017-03-14] MEDS: HYDROmorphone HCL PF 1 MG/ML VIAL IV PUSH PRN ×6 (03:23→22:10)
[2017-03-14 06:44] LABS: AUTOMATED NEUTROPHIL # 6.9 TH/MM3 (1.8-7.7); BASOPHIL % 0.3 % (0.0-2.0); EOSINOPHIL # 0.1 TH/MM3 (0-0.4); EOSINOPHIL % 1.3 % (0.0-4.0); HEMO FLAGS DIFF FINAL; LYMPH % 12.5 % (9.0-44.0); LYMPHOCYTE # 1.1 TH/MM3 (1.0-4.8); MEAN CELL VOLUME 95.2 FL (80.0-100.0); MEAN CORPUSCULAR HEMOGLOBIN 32.2 PG (27.0-34.0); MEAN CORPUSCULAR HGB CONC 33.8 % (32.0-36.0); MONO % 9.2 % (0.0-8.0); NEUT % 76.7 % (16.0-70.0); PLATELET COUNT 136 TH/MM3 (150-450); RED BLOOD COUNT 3.67 MIL/MM3 (4.50-5.90); RED CELL DISTRIBUTION WIDTH 12.3 % (11.6-17.2)
[2017-03-14] MEDS: INSULIN ASPART SUPPLEMENTAL SCALE SQ SCH ×4 (07:00→21:00)
[2017-03-14 07:08] LABS: BICARBONATE 29.3 MEQ/L (21.0-32.0); POTASSIUM 3.7 MEQ/L (3.5-5.1)
[2017-03-14] MEDS: SODIUM CHLORIDE 0.9% FLUSH 10 ML FLUSH IV FLUSH SCH ×2 (07:46→21:04)
[2017-03-14] MEDS: POLYETHYLENE GLYCOL 17 GM PKG PO SCH (07:46)
--- NOTE | 2017-03-14 07:56 | PD.ORT.PN ---
Subjective Subjective Remarks pain tolerable in hip, knee more painful Objective Vitals Vital Signs Date Time Temp Pulse Resp B/P Pulse Ox O2 Delivery O2 Flow Rate FiO2 03/14/17 04:00 97.9 75 22 155/87 99 03/14/17 00:00 98.1 71 20 148/72 97 03/13/17 20:00 98.3 86 18 148/72 97 03/13/17 16:15 78 03/13/17 16:00 99.4 78 18 139/76 97 03/13/17 12:00 97.9 82 18 142/79 96 03/13/17 08:00 97.8 72 18 144/81 97 I/O 03/13/17 03/13/17 03/13/17 03/14/17 03/14/17 03/14/17 07:00 15:00 23:00 07:00 15:00 23:00 Intake Total 240 ml 1800 ml 480 ml Output Total 550 ml 300 ml 1250 ml 275 ml Balance -310 ml -300 ml 550 ml 205 ml Intake Oral 240 ml 1800 ml 480 ml Output Urine Total 550 ml 300 ml 1250 ml 275 ml # Bowel Movements 0 0 0 Result Diagram: 03/14/17 0557 03/14/17 0557 Objective Remarks in bed, nad splint RLE with ice thigh soft nvi, sensation intact cap refill Assessment & Plan Assessment and Plan 62-year-old male with a history of diabetes and gout presented to the emergency department after a fall complaining of right knee pain. Patient had a total hip replacement that has been chronically dislocated for the past 14 months without seeking medical Treatment. He uses a walker. He tripped while walking over a curb. X-ray taken the emergency department reveal displaced right distal femur fracture, minimally displaced medial plateau fracture as well as chronically dislocated right total hip arthroplasty with protrusion of the acetabular cup. As for as his fractures he will require open reduction internal fixation of the right distal femur with possible fixation of the right plateau fracture. As for as his right hip chronic dislocation, this will require revision hip arthroplasty after hip infection has been ruled out. Right hip aspiration ordered. no fluid collection noted on US. CAT scan of the right distal femur and tibial plateau. Maintain knee immobilizer Nonweightbearing right lower extremity Fixation of his fractures are of a first priority. His chronic right hip dislocation will need to be staged and will likely be addressed at a later date. I discussed my treatment plans with the patient, as well as risks, benefits and alternatives of surgical Intervention versus nonoperative treatment. In this case, the risks of operative intervention involves bleeding, infection, risks of damage to neurovascular structures, the risk of needing further surgery, posttraumatic arthritis and the risks involved with complication from anesthesia. The patient accepts these risks; understands and agrees with my recommendations. OR Wednesday for ORIF right distal femur and proximal tibia maintain splint, unable to place CKS plan for sx in morning NPO after midnight hold anticoagulation Bethel Johnson March 14, 2017 07:55
--- NOTE | 2017-03-14 08:47 | HHI.PR ---
Subjective Remarks Patient seen and examined this am. Vitals stable and patient is afebrile. Anxious to have surgery. Has some hip pain. but pain is mostly in his knee. Tolerating his diet. Currently icing the hip. Objective Vital Signs Date Time Temp Pulse Resp B/P Pulse Ox O2 Delivery O2 Flow Rate FiO2 03/14/17 04:00 97.9 75 22 155/87 99 03/14/17 00:00 98.1 71 20 148/72 97 03/13/17 20:00 98.3 86 18 148/72 97 03/13/17 16:15 78 03/13/17 16:00 99.4 78 18 139/76 97 03/13/17 12:00 97.9 82 18 142/79 96 I/O 03/13/17 03/13/17 03/13/17 03/14/17 03/14/17 03/14/17 07:00 15:00 23:00 07:00 15:00 23:00 Intake Total 240 ml 1800 ml 480 ml Output Total 550 ml 300 ml 1250 ml 275 ml Balance -310 ml -300 ml 550 ml 205 ml Intake Oral 240 ml 1800 ml 480 ml Output Urine Total 550 ml 300 ml 1250 ml 275 ml # Bowel Movements 0 0 0 Result Diagram: 03/14/17 0557 03/14/17 0557 Imaging Last Impressions Soft Tissue Ultrasound 03/13/17 0000 Signed Impressions: Service Date/Time: Monday, March 13, 2017 11:02 - CONCLUSION: Focused sonographic examination in the region of the right hip was performed. No focal fluid collections identified. Oscar Boyd MD Femur X-Ray 03/12/17 0634 Signed Impressions: Service Date/Time: Sunday, March 12, 2017 06:52 - CONCLUSION: There is a fracture of distal femur and loosening of the acetabular component with a fractured screw and the femoral head component appears to be outside of the acetabular component. Maritza Zavaleta MD Lower Extremity CT 03/12/17 0000 Signed Impressions: Service Date/Time: Monday, March 13, 2017 07:52 - CONCLUSION: Comminuted fractures of the distal femur and proximal tibia with intra-articular involvement. Oscar Boyd MD Knee X-Ray 03/12/17 0000 Signed Impressions: Service Date/Time: Sunday, March 12, 2017 02:18 - CONCLUSION: 1. Comminuted intra-articular fracture of distal femur with mild displacement. Also mildly displaced medial tibial plateau fracture. John Kwan MD Objective Remarks GENERAL: This is a well-nourished, well-developed patient, in moderate amount of pain. SKIN: No rashes, ecchymoses or lesions. Cool and dry. HEAD: Atraumatic. Normocephalic. No temporal or scalp tenderness. EYES: pupils 3-4 mm. Reactive. CARDIOVASCULAR: Regular rate and rhythm without murmurs, gallops, or rubs. RESPIRATORY: Clear to auscultation. Breath sounds equal bilaterally. No wheezes , rales, or rhonchi. GASTROINTESTINAL: Abdomen soft, non-tender, nondistended. No hepato-splenomegaly , or palpable masses. No guarding. MUSCULOSKELETAL: Minimal movement with rt leg, able to wiggle toes. No calf tenderness. In right knee splint. NEUROLOGICAL: Awake and alert. Motor and sensory grossly within normal limits. Normal speech. A/P Problem List: (1) Femur fracture ICD Code: S72.90XA (2) Tibia fracture ICD Code: S82.209A (3) Diabetes ICD Code: E11.9 Assessment and Plan 62 y/o with a history of DM, gout, and chronic hip dislocation presented to the ED with complaints of rt knee pain after tripping on a curb and falling. Rt Femur Fx, Femur xray shows there is a fracture of distal femur and loosening of the acetabular component with a fractured screw and the femoral head component appears to be outside of the acetabular component. -Ortho consulted. Checking CT hip. Plan for ORIF Wednesday (HOLD ANTICOAGULATION , NPO @ MIDNIGHT). Appears to have chronic hip dislocation, as well. Will need to r/o infection with CT-guided hip aspiration. US no focal fluid collection. Can be revised at a later date once infection r/o. -Pain regimen to roxicodone 5mg q4 PRN pain scale 5-7, roxicodone 10mg q4 PRN pain scale 8-10, and dilaudid 1mg IV for breakthrough only. -ICE + splint to knee Diabetes, chronic, diet controlled -A1c 5.9 -Accu checks AC/HS with low dose SSI. Leukocytosis, likely reactive, wbc 14.1 -resolved. Likely stress RXN from injury. Hypertension, acute, likely due to pain -Clonidine PRN, and monitor vitals DVT prophylaxis: SCDs, anticoagulation per ortho Discharge Planning D/C pending further workup by ortho, ORIF planned for wednesday. Problem Qualifiers (1) Femur fracture: Qualified Code: S72.351A - Closed displaced comminuted fracture of shaft of right femur, initial encounter (2) Tibia fracture: Qualified Code: S82.101A - Closed fracture of proximal end of right tibia, unspecified fracture morphology, initial encounter (3) Diabetes: Qualified Code: E11.9 - Type 2 diabetes mellitus without complication, without long-term current use of insulin Erica Clark MD R3 March 14, 2017 08:47
[2017-03-15] VITALS (7 sets, daily range): BP systolic 145–165; BP diastolic 79–98; PULSE 78–101; RESP 16–22; TEMP 95.8–99.5; O2SAT 95–98
[2017-03-15] MEDS ORDERED: CHLORHEXIDINE GLUCONATE 2 % 1 PACK (2 CLOTHS) TOPICAL PRN (01:15)
[2017-03-15] MEDS: HYDROmorphone HCL PF 1 MG/ML VIAL IV PUSH PRN ×6 (01:15→21:09)
[2017-03-15] MEDS ORDERED: POVIDONE IODINE 5% (ANTISEPSIS KIT) 4 APPLICATIONS EACH NARE PRN (01:15)
[2017-03-15] MEDS ORDERED: LACTATED RINGER'S 1000 ML IV PRN (01:15)
[2017-03-15] MEDS ORDERED: SODIUM CHLORID 0.9% 500 ML IV PRN (01:15)
--- NOTE | 2017-03-15 06:57 | PD.ORT.PN ---
Subjective Subjective Remarks s/p fall with right leg and knee pain hx of chronic right hip dislocation Objective Vitals Vital Signs Date Time Temp Pulse Resp B/P Pulse Ox O2 Delivery O2 Flow Rate FiO2 03/15/17 04:00 98.4 81 22 149/98 96 03/15/17 00:00 98.2 85 18 150/93 96 03/14/17 20:00 99.0 88 20 149/91 99 03/14/17 17:33 86 03/14/17 16:00 99.6 86 18 129/66 96 03/14/17 12:00 97.8 77 18 161/82 97 03/14/17 08:00 97.9 72 18 167/81 95 I/O 03/14/17 03/14/17 03/14/17 03/15/17 03/15/17 03/15/17 07:00 15:00 23:00 07:00 15:00 23:00 Intake Total 480 ml 1500 ml 480 ml Output Total 275 ml 1900 ml 625 ml Balance 205 ml -400 ml -145 ml Intake Oral 480 ml 1500 ml 480 ml Output Urine Total 275 ml 1900 ml 625 ml # Bowel Movements 0 0 0 Result Diagram: 03/14/17 0557 03/14/17 0557 Objective Remarks in bed, nad splint RLE with ice thigh soft nvi, sensation intact cap refill Assessment & Plan Assessment and Plan 1) Right Distal Femur Fx 2) Right Tibial plateau fx 3) Right Total hip dislocation maintain splint, unable to place CKS plan for sx tomorrow AM resume diet NPO after midnight lovenox 30mg subQ one time dose this AM sign consents change Roxicodone to 15mg Q4H Carlos Diamond March 15, 2017 06:57
[2017-03-15] MEDS ORDERED: ENOXAPARIN SODIUM 30 MG/0.3 ML SYRINGE SQ ONE (07:00)
[2017-03-15] MEDS: INSULIN ASPART SUPPLEMENTAL SCALE SQ SCH ×4 (07:00→22:39)
[2017-03-15 07:38] LABS: AUTOMATED NEUTROPHIL # 6.8 TH/MM3 (1.8-7.7); BASOPHIL % 0.4 % (0.0-2.0); EOSINOPHIL # 0.3 TH/MM3 (0-0.4); EOSINOPHIL % 2.9 % (0.0-4.0); HEMATOCRIT 35.9 % (39.0-51.0); HEMO FLAGS DIFF FINAL; LYMPH % 15.9 % (9.0-44.0); LYMPHOCYTE # 1.6 TH/MM3 (1.0-4.8); MEAN CELL VOLUME 95.3 FL (80.0-100.0); MEAN CORPUSCULAR HEMOGLOBIN 31.8 PG (27.0-34.0); MEAN CORPUSCULAR HGB CONC 33.4 % (32.0-36.0); MONO % 12.3 % (0.0-8.0); NEUT % 68.5 % (16.0-70.0); PLATELET COUNT 166 TH/MM3 (150-450); RED BLOOD COUNT 3.76 MIL/MM3 (4.50-5.90); RED CELL DISTRIBUTION WIDTH 12.2 % (11.6-17.2); WHITE BLOOD COUNT 9.9 TH/MM3 (4.0-11.0)
[2017-03-15] MEDS: POLYETHYLENE GLYCOL 17 GM PKG PO SCH (08:03)
[2017-03-15 08:05] LABS: BICARBONATE 30.7 MEQ/L (21.0-32.0); POTASSIUM 4.2 MEQ/L (3.5-5.1)
[2017-03-15] MEDS: SODIUM CHLORIDE 0.9% FLUSH 10 ML FLUSH IV FLUSH SCH ×2 (08:10→12:25)
[2017-03-15] MEDS: MAGNESIUM HYDROXIDE SUSP 30 ML CUP PO PRN (08:10)
--- NOTE | 2017-03-15 12:19 | HHI.PR ---
Subjective Remarks Follow-up right femur fracture 03/15/17-patient seen and examined, pain currently controlled. Plan for open reduction internal fixations 03/16/17. No acute event overnight. Objective Vitals Vital Signs Date Time Temp Pulse Resp B/P Pulse Ox O2 Delivery O2 Flow Rate FiO2 03/15/17 11:34 97.4 89 19 155/79 96 03/15/17 08:29 Room Air 03/15/17 08:29 78 03/15/17 07:35 95.8 79 19 157/82 98 03/15/17 04:00 98.4 81 22 149/98 96 03/15/17 00:00 98.2 85 18 150/93 96 03/14/17 20:00 99.0 88 20 149/91 99 03/14/17 17:33 86 03/14/17 16:00 99.6 86 18 129/66 96 I/O 03/14/17 03/14/17 03/14/17 03/15/17 03/15/17 03/15/17 07:00 15:00 23:00 07:00 15:00 23:00 Intake Total 480 ml 1500 ml 480 ml Output Total 275 ml 1900 ml 625 ml Balance 205 ml -400 ml -145 ml Intake Oral 480 ml 1500 ml 480 ml Output Urine Total 275 ml 1900 ml 625 ml # Bowel Movements 0 0 0 Result Diagram: 03/15/1721 03/15/1721 Imaging Last Impressions Soft Tissue Ultrasound 03/13/17 0000 Signed Impressions: Service Date/Time: Monday, March 13, 2017 11:02 - CONCLUSION: Focused sonographic examination in the region of the right hip was performed. No focal fluid collections identified. Oscar Boyd MD Femur X-Ray 03/12/17 0634 Signed Impressions: Service Date/Time: Sunday, March 12, 2017 06:52 - CONCLUSION: There is a fracture of distal femur and loosening of the acetabular component with a fractured screw and the femoral head component appears to be outside of the acetabular component. Maritza Zavaleta MD Lower Extremity CT 03/12/17 0000 Signed Impressions: Service Date/Time: Monday, March 13, 2017 07:52 - CONCLUSION: Comminuted fractures of the distal femur and proximal tibia with intra-articular involvement. Oscar Boyd MD Knee X-Ray 03/12/17 0000 Signed Impressions: Service Date/Time: Sunday, March 12, 2017 02:18 - CONCLUSION: 1. Comminuted intra-articular fracture of distal femur with mild displacement. Also mildly displaced medial tibial plateau fracture. John Kwan MD Objective Remarks GENERAL: NAD SKIN: Warm and dry. HEAD: Normocephalic. EYES: No scleral icterus. No injection or drainage. NECK: Supple, trachea midline. No JVD or lymphadenopathy. CARDIOVASCULAR: Regular rate and rhythm without murmurs, gallops, or rubs. RESPIRATORY: Breath sounds equal bilaterally. No accessory muscle use. GASTROINTESTINAL: Abdomen soft, non-tender, nondistended. MUSCULOSKELETAL: No cyanosis, or edema. Right lower extremity in cast BACK: Nontender without obvious deformity. No CVA tenderness. A/P Problem List: (1) Femur fracture ICD Code: S72.90XA Status: Acute (2) Diabetes ICD Code: E11.9 Status: Chronic (3) Leukocytosis ICD Code: D72.829 Status: Acute Assessment and Plan 62 y/o with a history of DM, gout, and chronic hip dislocation presented to the ED with complaints of rt knee pain after tripping on a curb and falling. Rt Femur Fx, -Ortho consulted. Plan for ORIF 03/16/17 -Pain regimen to roxicodone 5mg q4 PRN pain scale 5-7, roxicodone 10mg q4 PRN pain scale 8-10, and dilaudid 1mg IV for breakthrough only. Diabetes, chronic, diet controlled -A1c 5.9 -Accu checks AC/HS with low dose SSI. Leukocytosis, likely reactive, wbc 14.1 -resolved. Likely stress RXN from injury. Hypertension, acute, likely due to pain -Clonidine PRN, and monitor vitals DVT prophylaxis: SCDs, anticoagulation per ortho Problem Qualifiers (1) Femur fracture: Qualified Code: S72.351A - Closed displaced comminuted fracture of shaft of right femur, initial encounter (2) Diabetes: Qualified Code: E11.9 - Type 2 diabetes mellitus without complication, without long-term current use of insulin (3) Leukocytosis: Qualified Code: D72.829 - Leukocytosis, unspecified type Sunny Briseno MD March 15, 2017 12:18
[2017-03-15] MEDS ORDERED: BISACODYL 10 MG SUPP RECTAL PRN (16:15)
[2017-03-16] VITALS (8 sets, daily range): BP systolic 138–153; BP diastolic 72–94; PULSE 76–95; RESP 16–19; TEMP 95.9–99.2; O2SAT 95–99
[2017-03-16] MEDS: HYDROmorphone HCL PF 1 MG/ML VIAL IV PUSH PRN ×5 (01:24→22:37)
--- NOTE | 2017-03-16 06:38 | PD.ORT.PN ---
Subjective Subjective Remarks s/p fall with right leg and knee pain hx of chronic right hip dislocation Objective Vitals Vital Signs Date Time Temp Pulse Resp B/P Pulse Ox O2 Delivery O2 Flow Rate FiO2 03/16/17 04:00 98.3 84 17 146/85 98 03/16/17 00:00 99.2 89 16 138/82 97 03/15/17 20:00 99.5 101 16 165/81 97 03/15/17 16:50 16 03/15/17 15:48 97.6 99 19 145/84 95 03/15/17 12:52 16 03/15/17 11:34 97.4 89 19 155/79 96 03/15/17 08:29 Room Air 03/15/17 08:29 78 03/15/17 07:35 95.8 79 19 157/82 98 I/O 03/15/17 03/15/17 03/15/17 03/16/17 03/16/17 03/16/17 07:00 15:00 23:00 07:00 15:00 23:00 Intake Total 480 ml 480 ml 720 ml 0 ml Output Total 625 ml 700 ml 400 ml 400 ml Balance -145 ml -220 ml 320 ml -400 ml Intake Oral 480 ml 480 ml 720 ml 0 ml Output Urine Total 625 ml 700 ml 400 ml 400 ml # Bowel Movements 0 0 Result Diagram: 03/15/1762003/15/17620 Objective Remarks in bed, nad splint RLE with ice thigh soft nvi, sensation intact cap refill Assessment & Plan Assessment and Plan 1) Right Distal Femur Fx 2) Right Tibial plateau fx 3) Right Total hip dislocation surgery today Carlos Diamond March 16, 2017 06:38
[2017-03-16] MEDS: INSULIN ASPART SUPPLEMENTAL SCALE SQ SCH ×4 (07:00→21:02)
[2017-03-16] MEDS: POLYETHYLENE GLYCOL 17 GM PKG PO SCH (08:01)
[2017-03-16] MEDS: MAGNESIUM HYDROXIDE SUSP 30 ML CUP PO PRN ×2 (08:02→17:22)
[2017-03-16] MEDS: SODIUM CHLORIDE 0.9% FLUSH 10 ML FLUSH IV FLUSH SCH (08:07)
--- NOTE | 2017-03-16 09:42 | HHI.PR ---
Subjective Remarks Follow-up right femur fracture 03/15/17-patient seen and examined, pain currently controlled. Plan for open reduction internal fixations 03/16/17. No acute event overnight. 03/16/17-patient seen and examined; currently nothing by mouth pending surgical repair today. Stable and afebrile. Objective Vitals Vital Signs Date Time Temp Pulse Resp B/P Pulse Ox O2 Delivery O2 Flow Rate FiO2 03/16/17 08:00 97.4 87 19 142/94 99 03/16/17 04:00 98.3 84 17 146/85 98 03/16/17 00:00 99.2 89 16 138/82 97 03/15/17 20:00 99.5 101 16 165/81 97 03/15/17 16:50 16 03/15/17 15:48 97.6 99 19 145/84 95 03/15/17 12:52 16 03/15/17 11:34 97.4 89 19 155/79 96 I/O 03/15/17 03/15/17 03/15/17 03/16/17 03/16/17 03/16/17 07:00 15:00 23:00 07:00 15:00 23:00 Intake Total 480 ml 480 ml 720 ml 0 ml Output Total 625 ml 700 ml 400 ml 400 ml Balance -145 ml -220 ml 320 ml -400 ml Intake Oral 480 ml 480 ml 720 ml 0 ml Output Urine Total 625 ml 700 ml 400 ml 400 ml # Bowel Movements 0 0 Result Diagram: 03/15/1762003/15/17620 Objective Remarks GENERAL: NAD SKIN: Warm and dry. HEAD: Normocephalic. EYES: No scleral icterus. No injection or drainage. NECK: Supple, trachea midline. No JVD or lymphadenopathy. CARDIOVASCULAR: Regular rate and rhythm without murmurs, gallops, or rubs. RESPIRATORY: Breath sounds equal bilaterally. No accessory muscle use. GASTROINTESTINAL: Abdomen soft, non-tender, nondistended. MUSCULOSKELETAL: No cyanosis, or edema. Right lower extremity in cast BACK: Nontender without obvious deformity. No CVA tenderness. A/P Problem List: (1) Femur fracture ICD Code: S72.90XA Status: Acute (2) Diabetes ICD Code: E11.9 Status: Chronic (3) Leukocytosis ICD Code: D72.829 Status: Acute Assessment and Plan 62 y/o with a history of DM, gout, and chronic hip dislocation presented to the ED with complaints of rt knee pain after tripping on a curb and falling. Rt Femur Fx, -Ortho consulted. Plan for ORIF 03/16/17 -Continue with PT -DVT post procedure per orthopedic surgery Diabetes, chronic, diet controlled -A1c 5.9 -Accu checks AC/HS with low dose SSI. Leukocytosis, likely reactive, wbc 14.1 -resolved. Likely stress RXN from injury. Hypertension, acute, likely due to pain -Clonidine PRN, and monitor vitals DVT prophylaxis: SCDs, anticoagulation per ortho Problem Qualifiers (1) Femur fracture: Qualified Code: S72.351A - Closed displaced comminuted fracture of shaft of right femur, initial encounter (2) Diabetes: Qualified Code: E11.9 - Type 2 diabetes mellitus without complication, without long-term current use of insulin (3) Leukocytosis: Qualified Code: D72.829 - Leukocytosis, unspecified type Sunny Briseno MD March 16, 2017 09:42
[2017-03-16] MEDS ORDERED: GENTAMICIN SULFATE 80 MG/2 ML VIAL ONE (12:52)
[2017-03-16] MEDS ORDERED: ceFAZolin 2 GM PREMIX 50 ML ONE (12:52)
[2017-03-16] MEDS ORDERED: VANCOMYCIN HCL 1000 MG VIAL ONE (12:53)
[2017-03-16] MEDS ORDERED: SODIUM CHLOR 0.9% 250 ML INJ 250 ML ONE (12:54)
[2017-03-16] MEDS ORDERED: ACETAMINOPHEN 1000 MG/100 ML VIAL IV ONE (12:57)
[2017-03-16] MEDS ORDERED: MIDAZOLAM HCL 2 MG/2 ML VIAL ONE (12:58)
[2017-03-16] MEDS ORDERED: fentaNYL CITRATE 250 MCG/5 ML AMP ONE ×2 (12:58→15:50)
[2017-03-16] MEDS ORDERED: DEXAMETHASONE SOD PHOS 4 MG/ML VIAL ONE (12:58)
[2017-03-16] MEDS ORDERED: FAMOTIDINE 20 MG/2 ML VIAL ONE (12:58)
[2017-03-16] MEDS ORDERED: HYDROmorphone HCL PF 2 MG/ML VIAL ONE (13:01)
[2017-03-16] MEDS ORDERED: PHENYLEPH/NS 1000 MCG/10 ML SYR IV ONE (14:58)
[2017-03-16] MEDS ORDERED: ePHEDrine/NS 25 MG/5 ML SYR IV ONE (14:58)
[2017-03-16] MEDS ORDERED: ONDANSETRON HCL 4 MG/2 ML VIAL IV PUSH ONE (14:58)
[2017-03-16] MEDS ORDERED: PROPOFOL 200 MG/20 ML AMP IV ONE (14:58)
--- NOTE | 2017-03-16 15:17 | EKG ---
Date Performed: 03/15/2017 Time Performed: 00:53:52 PTAGE: 62 years EKG: Sinus rhythm . Normal ECG Compared to prior tracing no significant change PREVIOUS TRACING : 06/09/2013 08.29 DOCTOR: Courtney Mckeon Interpretating Date/Time 03/16/2017 15:15:54
[2017-03-16] MEDS: LACTATED RINGER'S 1000 ML INJ 1,000 ML IV SCH (15:21)
[2017-03-16] MEDS ORDERED: Post-op Orders (for Pharmacy) MISC XX ONE (15:30)
[2017-03-16] MEDS ORDERED: diphenhydrAMINE HCL 25 MG CAP PO PRN (15:30)
[2017-03-16] MEDS ORDERED: SODIUM CHLORIDE 0.9% FLUSH 5 ML FLUSH IVF PRN (15:30)
[2017-03-16] MEDS ORDERED: MISCELLANEOUS PHARMACY INFORMATION XX ONE (15:30)
[2017-03-16] MEDS ORDERED: MISCELLANEOUS NURSING INFORMATION XX PRN (15:30)
--- NOTE | 2017-03-16 15:30 | PD.OP ---
cc: Bernardino Rhodes MD Operative Report Date of Surgery: March 16, 2017 Preoperative Diagnosis: Displaced right distal femur intra-articular fracture, nondisplaced right proximal tibia fracture Postoperative Diagnosis: Procedure: Open reduction internal fixation right distal femur supracondylar intra- articular fracture Anesthesia: Gen. Surgeon: Bernardino Rhodes [employer] Superintendent(s): Marc Christie PA-C The surgical procedure was assisted by my physician process assistant. My P.A. presence was necessary throughout this case for the manipulation and positioning of the surgical extremity. My P.A. was assisting me throughout the duration of this procedure. The skill set of a physician process assistant was medically necessary to complete this procedure. During the surgical case the director medical surgical was working at the back table and the physician process assistant was directly assisting me. Operation and Findings: Patient was seen and evaluated preoperatively. Risk and benefits of surgery were discussed in depth with patient. Patient was found to have a displaced right distal femur fracture and a minimally displaced right proximal tibia fracture. Informed consent was obtained, operative site was marked. Patient was brought to the OR, placed on OR table, and given IV sedation with GETA. IV antibiotics were administered and timeout procedure was performed. The operative leg was prepped with alcohol, followed with Hibiclens, draped in usual sterile fashion. A timeout procedure was performed. The procedure began with a 8-inch incision over the lateral aspect of the distal femur. Subcutaneous tissue was dissected with Bovie. Iliotibial band was split in line with fibers. At this point the fracture was visualized. Traction was applied. Fracture was manipulated. The articular surface was visualized. The medial and lateral fracture fragments were reduced and keyed into excellent alignment. Steinmann pins were used to hold provisional fixation. At this point attention was turned to plate placement. A ITS distal femur plate was selected and attached to the insertion handle jig. The plate was placed underneath the vastus lateralis. Steinmann pins were used to hold the plate to bone. Multiplanar fluoroscopy confirmed appropriate placement of plate. Multiple 4.5 cortical screws were now placed in percutaneous fashion through the plate. The plate was compressed to bone. Multiple locking screws were now placed in the distal segment of the distal femur. Additional locking screws were placed into the femoral shaft. All screws were predrilled and premeasured for appropriate length. Final fluoroscopy revealed excellent alignment of fracture with well-placed hardware. Wound was thoroughly irrigated. Fascia was closed with #1 Vicryl. Subcutaneous tissue was closed with 3-0 Vicryl. Skin was closed with viktoriya. Sterile dressings were applied. The patient was placed into a knee immobilizer and transferred to recovery in stable condition. Needle and sponge counts were correct. Bernardino Rhodes MD March 16, 2017 15:30
--- NOTE | 2017-03-16 15:32 | RADRPT ---
EXAM DATE/TIME: 03/16/2017 15:08 [facility] COMPARISON: KNEE RIGHT LTD (1 OR 2 VWS), March 12, 2017, 2:18. FEMUR RIGHT (1 VW), March 12, 2017, 6:52. CT KNEE RI GHT W/O CONTRAST, March 13, 2017, 7:52. INDICATIONS : ORIF right distal femur. MEDICAL HISTORY : None. SURGICAL HISTORY : Right hip replacement ENCOUNTER: Subsequent ACUITY: 4 - 6 days PAIN SCORE: Non-responsive. LOCATION: Right distal femur FINDINGS: There has been lateral plate and screw fixation of distal right femur fracture with satisfactory redu ction fragments. Alignment is anatomic. Hardware appears intact. CONCLUSION: Satisfactory appearance of right distal femur ORIF Michael Garcia MD on March 16, 2017 at 15:29 Board Certified Radiologist. This report was verified electronically.
[2017-03-16] MEDS ORDERED: BISACODYL 10 MG SUPP RECTAL PRN (15:45)
[2017-03-16] MEDS ORDERED: *morphine SULFATE 8 MG/ML PERIprocedure ONLY ONE ×3 (15:55→16:17)
[2017-03-16] MEDS ORDERED: VANCOMYCIN INJ 1,000 MG in SODIUM CHLOR 0.9% 250 ML INJ 250 ML IV SCH (16:00)
[2017-03-16] MEDS ORDERED: *HYDROmorphone PF 1 MG VIAL PERIprocedural Use ONLY ONE (16:39)
[2017-03-16] MEDS: CALCIUM/VITAMIN D 250 MG/125 U TAB PO SCH (17:23)
[2017-03-16] MEDS: ERGOCALCIFEROL (VIT D2) 50,000 UNIT CAP PO SCH (17:23)
[2017-03-16] MEDS: SODIUM CHLORIDE 0.9% FLUSH 5 ML FLUSH IVF SCH (20:55)
[2017-03-16] MEDS: ceFAZolin 2 GM PREMIX 50 ML IV SCH (20:57)
[2017-03-17] MEDS: VANCOMYCIN INJ 1,000 MG in SODIUM CHLOR 0.9% 250 ML INJ 250 ML IV SCH ×2 (00:49→12:22)
[2017-03-17] MEDS: HYDROmorphone HCL PF 1 MG/ML VIAL IV PUSH PRN ×7 (02:57→23:12)
[2017-03-17] MEDS: LACTATED RINGER'S 1000 ML INJ 1,000 ML IV SCH ×2 (02:57→16:21)
[2017-03-17 04:20] VITALS: BP 128/72; PULSE 98; RESP 18; TEMP 97.9; O2SAT 94
[2017-03-17] MEDS: ceFAZolin 2 GM PREMIX 50 ML IV SCH ×3 (05:03→20:30)
[2017-03-17] MEDS: INSULIN ASPART SUPPLEMENTAL SCALE SQ SCH ×4 (05:13→21:00)
[2017-03-17 06:04] LABS: REVIEW FLAG FINAL
[2017-03-17 08:00] VITALS: BP 117/69; PULSE 91; RESP 20; TEMP 98.4; O2SAT 95
[2017-03-17] MEDS: POLYETHYLENE GLYCOL 17 GM PKG PO SCH (09:22)
[2017-03-17] MEDS: SODIUM CHLORIDE 0.9% FLUSH 5 ML FLUSH IVF SCH ×2 (09:22→20:34)
[2017-03-17] MEDS: CHOLECALCIFEROL (VIT D3) 1000 UNIT TAB PO SCH (09:23)
[2017-03-17] MEDS: CALCIUM/VITAMIN D 250 MG/125 U TAB PO SCH ×3 (09:23→19:05)
--- NOTE | 2017-03-17 09:23 | HHI.PR ---
Subjective Remarks Follow-up right femur fracture 03/15/17-patient seen and examined, pain currently controlled. Plan for open reduction internal fixations 03/16/17. No acute event overnight. 03/16/17-patient seen and examined; currently nothing by mouth pending surgical repair today. Stable and afebrile. 03/17/17-patient seen and examined; complains of right lower extremity pain. Patient is status post Open reduction internal fixation right distal femur supracondylar intra-articular fracture Objective Vitals Vital Signs Date Time Temp Pulse Resp B/P Pulse Ox O2 Delivery O2 Flow Rate FiO2 03/17/17 08:00 98.4 91 20 117/69 95 03/17/17 04:20 97.9 98 18 128/72 94 03/16/17 23:01 98.9 95 19 143/72 95 03/16/17 21:27 96 21 03/16/17 19:35 96.7 94 19 146/75 97 03/16/17 19:24 16 03/16/17 17:20 95.9 90 17 153/78 99 03/16/17 16:45 98.7 80 13 140/71 100 Nasal Cannula 2 03/16/17 16:30 84 26 150/83 99 Nasal Cannula 2 03/16/17 16:15 81 15 147/75 97 Nasal Cannula 2 03/16/17 16:00 89 22 132/59 97 Nasal Cannula 2 03/16/17 15:45 98.3 92 15 145/68 100 Nasal Cannula 2 03/16/17 12:00 98.6 76 18 147/85 99 I/O 03/16/17 03/16/17 03/16/17 03/17/17 03/17/17 03/17/17 07:00 15:00 23:00 07:00 15:00 23:00 Intake Total 0 ml 1480 ml 480 ml Output Total 400 ml 400 ml 1000 ml Balance -400 ml 1080 ml -520 ml Intake Oral 0 ml 480 ml 480 ml Other 1000 ml Output Urine Total 400 ml 200 ml 1000 ml Estimated Blood Loss 200 ml # Voids 2 # Bowel Movements 0 0 Result Diagram: 03/17/17 0540 03/15/17 0621 Objective Remarks GENERAL: NAD SKIN: Warm and dry. HEAD: Normocephalic. EYES: No scleral icterus. No injection or drainage. NECK: Supple, trachea midline. No JVD or lymphadenopathy. CARDIOVASCULAR: Regular rate and rhythm without murmurs, gallops, or rubs. RESPIRATORY: Breath sounds equal bilaterally. No accessory muscle use. GASTROINTESTINAL: Abdomen soft, non-tender, nondistended. MUSCULOSKELETAL: No cyanosis, or edema. Bandage to right hip-neurovascular intact BACK: Nontender without obvious deformity. No CVA tenderness. Procedures Open reduction internal fixation right distal femur supracondylar intra- articular fracture 03/16/17 A/P Problem List: (1) Femur fracture ICD Code: S72.90XA Status: Acute (2) Diabetes ICD Code: E11.9 Status: Chronic (3) Leukocytosis ICD Code: D72.829 Status: Acute Assessment and Plan 62 y/o with a history of DM, gout, and chronic hip dislocation presented to the ED with complaints of rt knee pain after tripping on a curb and falling. Rt Femur Fx, -Ortho consulted. Status post Open reduction internal fixation right distal femur supracondylar intra-articular fracture 03/16/17 -Continue with PT Diabetes, chronic, diet controlled -A1c 5.9 -Accu checks AC/HS with low dose SSI. Leukocytosis, likely reactive, wbc 14.1 -resolved. Likely stress RXN from injury. Hypertension, acute -Clonidine PRN DVT prophylaxis: SCDs, Lovenox Problem Qualifiers (1) Femur fracture: Qualified Code: S72.351A - Closed displaced comminuted fracture of shaft of right femur, initial encounter (2) Diabetes: Qualified Code: E11.9 - Type 2 diabetes mellitus without complication, without long-term current use of insulin (3) Leukocytosis: Qualified Code: D72.829 - Leukocytosis, unspecified type Sunny Briseno MD March 17, 2017 09:23
[2017-03-17] MEDS: MAGNESIUM HYDROXIDE SUSP 30 ML CUP PO PRN (09:24)
--- NOTE | 2017-03-17 10:59 | PD.ORT.PN ---
Subjective Subjective Remarks Pain controlled. No new complaints Objective Vitals Vital Signs Date Time Temp Pulse Resp B/P Pulse Ox O2 Delivery O2 Flow Rate FiO2 03/17/17 08:00 98.4 91 20 117/69 95 03/17/17 04:20 97.9 98 18 128/72 94 03/16/17 23:01 98.9 95 19 143/72 95 03/16/17 21:27 96 21 03/16/17 19:35 96.7 94 19 146/75 97 03/16/17 19:24 16 03/16/17 17:20 95.9 90 17 153/78 99 03/16/17 16:45 98.7 80 13 140/71 100 Nasal Cannula 2 03/16/17 16:30 84 26 150/83 99 Nasal Cannula 2 03/16/17 16:15 81 15 147/75 97 Nasal Cannula 2 03/16/17 16:00 89 22 132/59 97 Nasal Cannula 2 03/16/17 15:45 98.3 92 15 145/68 100 Nasal Cannula 2 03/16/17 12:00 98.6 76 18 147/85 99 I/O 03/16/17 03/16/17 03/16/17 03/17/17 03/17/17 03/17/17 07:00 15:00 23:00 07:00 15:00 23:00 Intake Total 0 ml 1480 ml 480 ml Output Total 400 ml 400 ml 1000 ml Balance -400 ml 1080 ml -520 ml Intake Oral 0 ml 480 ml 480 ml Other 1000 ml Output Urine Total 400 ml 200 ml 1000 ml Estimated Blood Loss 200 ml # Voids 2 # Bowel Movements 0 0 Result Diagram: 03/17/17 0540 03/15/17 0621 Objective Remarks Right lower extremity: Knee immobilizer in place with clean dressings intact. Compartments soft distally intact sensation with good capillary refills. He has strong dorsiflexion plantar flexion of foot Assessment & Plan Assessment and Plan 1) Right Distal Femur Fx ORIF POD 1 2) Right Tibial plateau fx nonoperative 3) Right Total hip dislocation - history Nonweightbearing right lower extremity immobilizer on at all times except for passive range of motion of knee 0-90. No active leglifts or quad sets Daily dressing changes beginning POD 2 Case management for rehabilitation placement Lovenox Follow-up with Dr. Rhodes or PA in 2 weeks Horacio Christie Jr. March 17, 2017 10:59
[2017-03-17 12:00] VITALS: BP 126/70; PULSE 108; RESP 20; TEMP 99.7; O2SAT 94
[2017-03-17 13:53] VITALS: O2SAT 94
[2017-03-17] MEDS: ENOXAPARIN SODIUM 30 MG/0.3 ML SYRINGE SQ SCH (14:09)
[2017-03-17 16:00] VITALS: BP 133/67; PULSE 100; RESP 18; TEMP 99.6; O2SAT 94
[2017-03-17 19:00] VITALS: BP 118/62; PULSE 84; RESP 17; TEMP 97.8; O2SAT 95
[2017-03-18] VITALS: BP 134/83; PULSE 88; RESP 16; TEMP 97.9; O2SAT 95
[2017-03-18] MEDS: VANCOMYCIN INJ 1,000 MG in SODIUM CHLOR 0.9% 250 ML INJ 250 ML IV SCH (01:39)
[2017-03-18] MEDS: HYDROmorphone HCL PF 1 MG/ML VIAL IV PUSH PRN ×2 (03:24→08:55)
[2017-03-18 04:00] VITALS: BP 124/58; PULSE 95; RESP 17; TEMP 97.4; O2SAT 95
[2017-03-18] MEDS: ceFAZolin 2 GM PREMIX 50 ML IV SCH ×2 (04:49→12:46)
[2017-03-18] MEDS: LACTATED RINGER'S 1000 ML INJ 1,000 ML IV SCH (04:51)
[2017-03-18] MEDS: INSULIN ASPART SUPPLEMENTAL SCALE SQ SCH ×4 (06:25→21:00)
--- NOTE | 2017-03-18 07:17 | PD.ORT.PN ---
Subjective Subjective Remarks Pain controlled. No new complaints Objective Vitals Vital Signs Date Time Temp Pulse Resp B/P Pulse Ox O2 Delivery O2 Flow Rate FiO2 03/18/17 04:00 97.4 95 17 124/58 95 03/18/17 02:38 18 03/18/17 00:00 97.9 88 16 134/83 95 03/17/17 23:42 18 03/17/17 19:00 97.8 84 17 118/62 95 03/17/17 18:11 21 03/17/17 16:00 99.6 100 18 133/67 94 03/17/17 13:53 94 21 03/17/17 12:00 99.7 108 20 126/70 94 03/17/17 08:00 98.4 91 20 117/69 95 I/O 03/17/17 03/17/17 03/17/17 03/18/17 03/18/17 03/18/17 07:00 15:00 23:00 07:00 15:00 23:00 Intake Total 480 ml 1120 ml 480 ml 480 ml Output Total 1000 ml 900 ml 550 ml 300 ml Balance -520 ml 220 ml -70 ml 180 ml Intake Oral 480 ml 1120 ml 480 ml 480 ml Output Urine Total 1000 ml 900 ml 550 ml 300 ml # Bowel Movements 0 1 0 Result Diagram: 03/17/17 0540 03/15/17 0621 Objective Remarks Right lower extremity: Knee immobilizer in place with clean dressings intact. Compartments soft distally intact sensation with good capillary refills. He has strong dorsiflexion plantar flexion of foot Assessment & Plan Assessment and Plan 1) Right Distal Femur Fx ORIF POD 2 2) Right Tibial plateau fx nonoperative 3) Right Total hip dislocation - history Nonweightbearing right lower extremity immobilizer on at all times except for passive range of motion of knee 0-90. No active leglifts or quad sets Daily dressing changes beginning POD 2 Case management for rehabilitation placement Lovenox [facility] cleared for discharge to rehabilitation when bed available Follow-up with Dr. Rhodes or PA in 2 weeks Horacio Christie Jr. March 18, 2017 07:17
[2017-03-18] MEDS ORDERED: OXYC15TA PO (07:22)
[2017-03-18] MEDS ORDERED: CALC1TAB87 PO (07:22)
[2017-03-18] MEDS ORDERED: XARE10TA PO (07:22)
[2017-03-18] MEDS ORDERED: ERGO1CAP30 PO (07:22)
[2017-03-18 08:10] VITALS: BP 131/69; PULSE 90; RESP 18; TEMP 98.6; O2SAT 95
[2017-03-18] MEDS: SODIUM CHLORIDE 0.9% FLUSH 5 ML FLUSH IVF SCH ×2 (08:53→21:00)
[2017-03-18] MEDS: POLYETHYLENE GLYCOL 17 GM PKG PO SCH (08:53)
[2017-03-18] MEDS: CALCIUM/VITAMIN D 250 MG/125 U TAB PO SCH ×3 (08:54→18:37)
[2017-03-18] MEDS: CHOLECALCIFEROL (VIT D3) 1000 UNIT TAB PO SCH (08:54)
--- NOTE | 2017-03-18 10:43 | HHI.PR ---
Subjective Remarks Follow-up right femur fracture 03/15/17-patient seen and examined, pain currently controlled. Plan for open reduction internal fixations 03/16/17. No acute event overnight. 03/16/17-patient seen and examined; currently nothing by mouth pending surgical repair today. Stable and afebrile. 03/17/17-patient seen and examined; complains of right lower extremity pain. Patient is status post Open reduction internal fixation right distal femur supracondylar intra-articular fracture 03/18/17-patient seen and examined, reports some improvement of right lower extremity pain. Positive for BM.Afebrile. Discussed with patient about possible transfer to [facility] Objective Vitals Vital Signs Date Time Temp Pulse Resp B/P Pulse Ox O2 Delivery O2 Flow Rate FiO2 03/18/17 08:10 98.6 90 18 131/69 95 03/18/17 04:00 97.4 95 17 124/58 95 03/18/17 02:38 18 03/18/17 00:00 97.9 88 16 134/83 95 03/17/17 23:42 18 03/17/17 19:00 97.8 84 17 118/62 95 03/17/17 18:11 21 03/17/17 16:00 99.6 100 18 133/67 94 03/17/17 13:53 94 21 03/17/17 12:00 99.7 108 20 126/70 94 I/O 03/17/17 03/17/17 03/17/17 03/18/17 03/18/17 03/18/17 07:00 15:00 23:00 07:00 15:00 23:00 Intake Total 480 ml 1120 ml 480 ml 480 ml Output Total 1000 ml 900 ml 550 ml 300 ml Balance -520 ml 220 ml -70 ml 180 ml Intake Oral 480 ml 1120 ml 480 ml 480 ml Output Urine Total 1000 ml 900 ml 550 ml 300 ml # Bowel Movements 0 1 0 Result Diagram: 03/17/17 0540 03/15/17 0621 Objective Remarks GENERAL: NAD SKIN: Warm and dry. HEAD: Normocephalic. EYES: No scleral icterus. No injection or drainage. NECK: Supple, trachea midline. No JVD or lymphadenopathy. CARDIOVASCULAR: Regular rate and rhythm without murmurs, gallops, or rubs. RESPIRATORY: Breath sounds equal bilaterally. No accessory muscle use. GASTROINTESTINAL: Abdomen soft, non-tender, nondistended. MUSCULOSKELETAL: No cyanosis, or edema. Bandage to right hip-neurovascular intact BACK: Nontender without obvious deformity. No CVA tenderness. Procedures Open reduction internal fixation right distal femur supracondylar intra- articular fracture 03/16/17 A/P Problem List: (1) Femur fracture ICD Code: S72.90XA Status: Acute (2) Diabetes ICD Code: E11.9 Status: Chronic (3) Leukocytosis ICD Code: D72.829 Status: Acute Assessment and Plan 62 y/o with a history of DM, gout, and chronic hip dislocation presented to the ED with complaints of rt knee pain after tripping on a curb and falling. Rt Femur Fx, -Ortho consulted. Status post Open reduction internal fixation right distal femur supracondylar intra-articular fracture 03/16/17 -Continue with PT Continue current pain management and discontinue IV parenteral Dilaudid Right tibial plateau fracture-nonoperable; continue with PT Right total hip dislocation-stable Diabetes, chronic, diet controlled -A1c 5.9 -Accu checks AC/HS with low dose SSI. Leukocytosis, likely reactive, wbc 14.1 -resolved. Likely stress RXN from injury. Hypertension, acute -Clonidine PRN DVT prophylaxis: SCDs, Lovenox Discharge Planning Okay for transfer to [facility] Problem Qualifiers (1) Femur fracture: Qualified Code: S72.351A - Closed displaced comminuted fracture of shaft of right femur, initial encounter (2) Diabetes: Qualified Code: E11.9 - Type 2 diabetes mellitus without complication, without long-term current use of insulin (3) Leukocytosis: Qualified Code: D72.829 - Leukocytosis, unspecified type Sunny Briseno MD March 18, 2017 10:43
[2017-03-18 12:10] VITALS: BP 147/76; PULSE 102; RESP 16; TEMP 97.7; O2SAT 96
[2017-03-18] MEDS: CYCLOBENZAPRINE HCL 10 MG TAB PO PRN (14:30)
[2017-03-18] MEDS: ENOXAPARIN SODIUM 30 MG/0.3 ML SYRINGE SQ SCH (14:55)
[2017-03-18 16:20] VITALS: BP 129/72; PULSE 94; RESP 16; TEMP 98.3; O2SAT 98
[2017-03-18 20:00] VITALS: BP 121/82; PULSE 95; RESP 21; TEMP 98.8; O2SAT 95
[2017-03-19 05:00] VITALS: PULSE 84
[2017-03-19 08:00] VITALS: BP 128/88; PULSE 88; RESP 16; TEMP 98; O2SAT 93
[2017-03-19] MEDS: SODIUM CHLORIDE 0.9% FLUSH 5 ML FLUSH IVF SCH ×2 (09:00→21:00)
[2017-03-19] MEDS: CALCIUM/VITAMIN D 250 MG/125 U TAB PO SCH ×3 (09:30→16:19)
[2017-03-19] MEDS: POLYETHYLENE GLYCOL 17 GM PKG PO SCH (09:30)
[2017-03-19] MEDS: BACITRACIN TOP OINT 15 GM TUBE TOPICAL SCH (09:30)
[2017-03-19] MEDS: CHOLECALCIFEROL (VIT D3) 1000 UNIT TAB PO SCH (09:30)
[2017-03-19] MEDS: INSULIN ASPART SUPPLEMENTAL SCALE SQ SCH ×4 (09:34→21:18)
--- NOTE | 2017-03-19 11:31 | HHI.PR ---
Subjective Remarks 62-year-old male in really presented to the hospital on 03/12/17 because he tripped over a curb and fell sustaining a right comminuted fractures of the distal femur and proximal tibia with intra-articular involvement. Patient underwent surgical intervention by orthopedic on 03/16/17 in which patient underwent open reduction internal fixation right distal femur supracondylar intra-articular fracture. As indicated by orthopedic the patient can go to rehabilitation and be discharged from the perspective with outpatient follow-up. However patient has no insurance, he is homeless. Patient is unable to go to a rehabilitation facility and thus the patient was transferred to [facility] for long-term care. Objective Vitals Vital Signs Date Time Temp Pulse Resp B/P Pulse Ox O2 Delivery O2 Flow Rate FiO2 03/19/17 08:00 98.0 88 16 128/88 93 03/19/17 05:00 84 03/18/17 20:00 98.8 95 21 121/82 95 03/18/17 16:20 98.3 94 16 129/72 98 03/18/17 12:10 97.7 102 16 147/76 96 I/O 03/18/17 03/18/17 03/18/17 03/19/17 03/19/17 03/19/17 07:00 15:00 23:00 07:00 15:00 23:00 Intake Total 480 ml 1280 ml 240 ml 120 ml Output Total 300 ml 375 ml 2150 ml Balance 180 ml 1280 ml -135 ml -2030 ml Intake Oral 480 ml 1280 ml 240 ml 120 ml Output Urine Total 300 ml 375 ml 2150 ml # Voids 1 # Bowel Movements 0 Result Diagram: 03/17/17 0540 03/15/17 0621 Objective Remarks GENERAL: Well-developed, well-nourished, in no acute distress. alert and orientated HEENT: Head is normocephalic without any lesions or masses noted. Facial features are symmetric. Eyes: Extraocular muscles are intact. Conjunctivae were clear. NECK: Supple without any masses. Trachea midline no deviation. No JVD, CARDIAC: Regular rhythm, regular rate. S1/S2 are heard. No murmurs gallops or rubs. LUNGS: Clear to auscultation bilaterally. No wheeze, rhonchi or rales. No use of accessory muscles on inspiration or expiration. ABDOMEN: Soft, nontender. Nondistended. Bowel sounds heard in all 4 quadrants. No organomegaly or masses. Negative rebound, negative guarding EXTREMITIES: No edema, pulses are equal bilaterally. No cyanosis or clubbing NEUROLOGY: Mood and affect appear appropriate. Cranial nerves II through XII grossly intact. Moving all extremities, speech is clear Procedures Open reduction internal fixation right distal femur supracondylar intra- articular fracture 03/16/17 Urinary Catheter: No Vascular Central Line Catheter: No A/P Assessment and Plan Right comminuted distal femur fracture and proximal tibia fracture with intra- articular involvement Orthopedic evaluated and patient underwent surgery on 03/16/17 with open reduction internal fixation of the right distal femur supracondylar intra- articular fracture Physical therapy recommendations indicate nonweightbearing right lower extremity Immobilizer at all times except for passive range of motion of [id number] 90. No active leg lifts or quad sets Daily dressing changes Pain control, patient still with postsurgical pain. Will adjust medications when appropriate Oxycodone 5 mg every 4 hours as needed for pain to5 Oxycodone 15 mg every 4 hours as needed for pain 610 History of Right total hip dislocation-stable Continue physical therapy Diabetes, chronic, A1c 5.9 Accu checks AC/HS with low dose SSI. Patient requiring proximal V4 units of insulin daily Start Glucophage 850 mg daily Leukocytosis, likely reactive, resolved Continue monitor CBC periodically Hypertension, acute Clonidine PRN Start lisinopril due to history of diabetes and elevated blood pressure DVT prophylaxis: Swati Pérez Matthew J. PA March 19, 2017 11:31
[2017-03-19] MEDS: ENOXAPARIN SODIUM 30 MG/0.3 ML SYRINGE SQ SCH (11:47)
[2017-03-19] MEDS: LISINOPRIL 10 MG TAB PO SCH (11:47)
[2017-03-19] MEDS: metFORMIN HCL 850 MG TAB PO SCH (11:54)
[2017-03-19 19:13] VITALS: O2SAT 99
[2017-03-19 20:00] VITALS: BP 125/77; PULSE 84; RESP 22; TEMP 97.6; O2SAT 95
[2017-03-20] MEDS: CHOLECALCIFEROL (VIT D3) 1000 UNIT TAB PO SCH (07:40)
[2017-03-20] MEDS: LISINOPRIL 10 MG TAB PO SCH (07:41)
[2017-03-20] MEDS: metFORMIN HCL 850 MG TAB PO SCH (07:41)
[2017-03-20] MEDS: SODIUM CHLORIDE 0.9% FLUSH 5 ML FLUSH IVF SCH ×2 (07:42→21:00)
[2017-03-20] MEDS: POLYETHYLENE GLYCOL 17 GM PKG PO SCH (07:42)
[2017-03-20] MEDS: CALCIUM/VITAMIN D 250 MG/125 U TAB PO SCH ×3 (07:42→15:41)
[2017-03-20] MEDS: INSULIN ASPART SUPPLEMENTAL SCALE SQ SCH ×4 (07:47→20:10)
[2017-03-20] MEDS: BACITRACIN TOP OINT 15 GM TUBE TOPICAL SCH (07:48)
[2017-03-20 08:00] VITALS: BP 114/72; PULSE 90; RESP 18; TEMP 98; O2SAT 98
--- NOTE | 2017-03-20 09:55 | HHI.PR ---
Subjective Remarks Patient seen and examined today in follow-up for right femur and tibia fracture. Patient is resting comfortably in bed. He did mention his pain management concerns. Objective Vitals Vital Signs Date Time Temp Pulse Resp B/P Pulse Ox O2 Delivery O2 Flow Rate FiO2 03/20/17 08:00 98.0 90 18 114/72 98 03/19/17 20:00 97.6 84 22 125/77 95 03/19/17 19:13 99 03/19/17 18:31 21 I/O 03/19/17 03/19/17 03/19/17 03/20/17 03/20/17 03/20/17 07:00 15:00 23:00 07:00 15:00 23:00 Intake Total 120 ml 480 ml 760 ml 360 ml 100 ml Output Total 2150 ml 1900 ml 325 ml Balance -2030 ml 480 ml -1140 ml 35 ml 100 ml Intake Oral 120 ml 480 ml 760 ml 360 ml 100 ml Output Urine Total 2150 ml 1900 ml 325 ml # Voids 3 Result Diagram: 03/17/17 0540 Objective Remarks GENERAL: Well-developed, well-nourished, in no acute distress. alert and orientated HEENT: Head is normocephalic without any lesions or masses noted. Facial features are symmetric. Eyes: Extraocular muscles are intact. Conjunctivae were clear. NECK: Supple without any masses. Trachea midline no deviation. No JVD, CARDIAC: Regular rhythm, regular rate. S1/S2 are heard. No murmurs gallops or rubs. LUNGS: Clear to auscultation bilaterally. No wheeze, rhonchi or rales. No use of accessory muscles on inspiration or expiration. ABDOMEN: Soft, nontender. Nondistended. Bowel sounds heard in all 4 quadrants. No organomegaly or masses. Negative rebound, negative guarding EXTREMITIES: No edema, pulses are equal bilaterally. No cyanosis or clubbing NEUROLOGY: Mood and affect appear appropriate. Cranial nerves II through XII grossly intact. Moving all extremities, speech is clear Procedures Open reduction internal fixation right distal femur supracondylar intra- articular fracture 03/16/17 Urinary Catheter: No Vascular Central Line Catheter: No A/P Assessment and Plan Right comminuted distal femur fracture and proximal tibia fracture with intra- articular involvement Orthopedic evaluated and patient underwent surgery on 03/16/17 with open reduction internal fixation of the right distal femur supracondylar intra- articular fracture Physical therapy recommendations indicate nonweightbearing right lower extremity Immobilizer at all times except for passive range of motion of [id number] 90. No active leg lifts or quad sets Daily dressing changes Pain control, patient still with postsurgical pain. Will adjust medications when appropriate Oxycodone 5 mg every 4 hours as needed for pain to5 Oxycodone 15 mg every 4 hours as needed for pain 610 History of Right total hip dislocation-stable Continue physical therapy Diabetes, chronic, A1c 5.9 Accu checks AC/HS with low dose SSI. Patient requiring 4 units of insulin daily Continue Glucophage 850 mg daily Leukocytosis, likely reactive, resolved Continue monitor CBC periodically Hypertension, improved Clonidine PRN Continue lisinopril 10 mg daily DVT prophylaxis: SCDs, Lovenox Discharge Planning Discharge per case management Warner Miller March 20, 2017 09:54
[2017-03-20] MEDS: ENOXAPARIN SODIUM 30 MG/0.3 ML SYRINGE SQ SCH (15:23)
[2017-03-20 20:00] VITALS: BP 103/70; PULSE 83; RESP 16; TEMP 97.1; O2SAT 96
[2017-03-21] MEDS: INSULIN ASPART SUPPLEMENTAL SCALE SQ SCH ×4 (07:00→20:47)
[2017-03-21] MEDS: SODIUM CHLORIDE 0.9% FLUSH 5 ML FLUSH IVF SCH ×2 (08:47→20:46)
[2017-03-21] MEDS: CALCIUM/VITAMIN D 250 MG/125 U TAB PO SCH ×3 (08:47→17:27)
[2017-03-21] MEDS: POLYETHYLENE GLYCOL 17 GM PKG PO SCH (08:47)
[2017-03-21] MEDS: LISINOPRIL 10 MG TAB PO SCH (08:47)
[2017-03-21] MEDS: metFORMIN HCL 850 MG TAB PO SCH (08:47)
[2017-03-21] MEDS: CHOLECALCIFEROL (VIT D3) 1000 UNIT TAB PO SCH (08:47)
[2017-03-21 08:49] VITALS: BP 135/82; PULSE 89; RESP 17; TEMP 97.9; O2SAT 98
[2017-03-21] MEDS: BACITRACIN TOP OINT 15 GM TUBE TOPICAL SCH (09:00)
[2017-03-21] MEDS: ENOXAPARIN SODIUM 30 MG/0.3 ML SYRINGE SQ SCH (13:03)
--- NOTE | 2017-03-21 13:25 | HHI.PR ---
Subjective Remarks Patient seen and examined today for follow-up on right femur/tibia fracture. Again, today the patient wants to discuss pain medication. He states that he does not feel that he is getting enough pain medication for his condition. He states that he is trying to go without the pain medication that he is unable to. Physical therapy also indicates that the patient was complaining of severe pain during physical therapy today. Patient wants me to reevaluate his pain medication and see if we can to adjust it. Objective Vitals Vital Signs Date Time Temp Pulse Resp B/P Pulse Ox O2 Delivery O2 Flow Rate FiO2 03/21/17 08:49 97.9 89 17 135/82 98 03/20/17 20:00 97.1 83 16 103/70 96 03/20/17 16:45 14 I/O 03/20/17 03/20/17 03/20/17 03/21/17 03/21/17 03/21/17 07:00 15:00 23:00 07:00 15:00 23:00 Intake Total 360 ml 100 ml 720 ml Output Total 325 ml 800 ml 750 ml Balance 35 ml 100 ml -800 ml -30 ml Intake Oral 360 ml 100 ml 720 ml Output Urine Total 325 ml 800 ml 750 ml # Bowel Movements 0 Result Diagram: 03/17/17 0540 Objective Remarks GENERAL: Well-developed, well-nourished, in no acute distress. alert and orientated HEENT: Head is normocephalic without any lesions or masses noted. Facial features are symmetric. Eyes: Extraocular muscles are intact. Conjunctivae were clear. NECK: Supple without any masses. Trachea midline no deviation. No JVD, CARDIAC: Regular rhythm, regular rate. S1/S2 are heard. No murmurs gallops or rubs. LUNGS: Clear to auscultation bilaterally. No wheeze, rhonchi or rales. No use of accessory muscles on inspiration or expiration. ABDOMEN: Soft, nontender. Nondistended. Bowel sounds heard in all 4 quadrants. No organomegaly or masses. Negative rebound, negative guarding EXTREMITIES: No edema, pulses are equal bilaterally. No cyanosis or clubbing NEUROLOGY: Mood and affect appear appropriate. Cranial nerves II through XII grossly intact. Moving all extremities, speech is clear Procedures Open reduction internal fixation right distal femur supracondylar intra- articular fracture 03/16/17 Urinary Catheter: No Vascular Central Line Catheter: No A/P Assessment and Plan Right comminuted distal femur fracture and proximal tibia fracture with intra- articular involvement Orthopedic evaluated and patient underwent surgery on 03/16/17 with open reduction internal fixation of the right distal femur supracondylar intra- articular fracture Physical therapy recommendations indicate nonweightbearing right lower extremity Immobilizer at all times except for passive range of motion of [id number] 90. No active leg lifts or quad sets Daily dressing changes Pain control, patient still with postsurgical pain. Will adjust medications when appropriate Oxycodone 5 mg every 4 hours as needed for pain to5 Oxycodone 15 mg every 4 hours as needed for pain 610 Ibuprofen 600 mg 3 times daily History of Right total hip dislocation-stable Continue physical therapy Diabetes, chronic, A1c 5.9 Accu checks AC/HS with low dose SSI. Patient requiring 2 units of insulin daily Continue Glucophage 850 mg daily Leukocytosis, likely reactive, resolved Continue monitor CBC periodically Hypertension, improved Clonidine PRN Continue lisinopril 10 mg daily DVT prophylaxis: SCDs, Lovenox Discharge Planning Discharge per case management Warner Miller March 21, 2017 13:25
[2017-03-21] MEDS: IBUPROFEN 600 MG TAB PO SCH ×2 (14:00→20:48)
[2017-03-21 20:00] VITALS: BP 97/78; PULSE 125; RESP 16; TEMP 96.9; O2SAT 91
[2017-03-22] MEDS: IBUPROFEN 600 MG TAB PO SCH ×3 (06:04→22:25)
[2017-03-22] MEDS: LISINOPRIL 10 MG TAB PO SCH (07:58)
[2017-03-22] MEDS: CALCIUM/VITAMIN D 250 MG/125 U TAB PO SCH ×3 (07:58→19:06)
[2017-03-22] MEDS: metFORMIN HCL 850 MG TAB PO SCH (07:58)
[2017-03-22] MEDS: CHOLECALCIFEROL (VIT D3) 1000 UNIT TAB PO SCH (07:58)
[2017-03-22] MEDS: SODIUM CHLORIDE 0.9% FLUSH 5 ML FLUSH IVF SCH ×3 (07:59→20:00)
[2017-03-22] MEDS: POLYETHYLENE GLYCOL 17 GM PKG PO SCH (07:59)
[2017-03-22 08:00] VITALS: BP 113/79; PULSE 76; RESP 18; TEMP 97.1; O2SAT 98
[2017-03-22] MEDS: BACITRACIN TOP OINT 15 GM TUBE TOPICAL SCH (08:00)
[2017-03-22] MEDS: INSULIN ASPART SUPPLEMENTAL SCALE SQ SCH ×4 (08:11→20:38)
--- NOTE | 2017-03-22 10:25 | HHI.PR ---
Subjective Remarks Patient seen and examined today for follow-up on right femur and tibia fracture. Patient states that he still having pain which is difficult for him to sleep at night. Objective Vitals Vital Signs Date Time Temp Pulse Resp B/P Pulse Ox O2 Delivery O2 Flow Rate FiO2 03/22/17 08:00 97.1 76 18 113/79 98 03/21/17 20:00 96.9 125 16 97/78 91 I/O 03/21/17 03/21/17 03/21/17 03/22/17 03/22/17 03/22/17 07:00 15:00 23:00 07:00 15:00 23:00 Intake Total 720 ml 480 ml 550 ml Output Total 750 ml 1255 ml 700 ml Balance -30 ml -775 ml -150 ml Intake Oral 720 ml 480 ml 550 ml Output Urine Total 750 ml 1255 ml 700 ml # Voids 3 # Bowel Movements 0 0 Objective Remarks GENERAL: Well-developed, well-nourished, in no acute distress. alert and orientated HEENT: Head is normocephalic without any lesions or masses noted. Facial features are symmetric. Eyes: Extraocular muscles are intact. Conjunctivae were clear. NECK: Supple without any masses. Trachea midline no deviation. No JVD, CARDIAC: Regular rhythm, regular rate. S1/S2 are heard. No murmurs gallops or rubs. LUNGS: Clear to auscultation bilaterally. No wheeze, rhonchi or rales. No use of accessory muscles on inspiration or expiration. ABDOMEN: Soft, nontender. Nondistended. Bowel sounds heard in all 4 quadrants. No organomegaly or masses. Negative rebound, negative guarding EXTREMITIES: No edema, pulses are equal bilaterally. No cyanosis or clubbing NEUROLOGY: Mood and affect appear appropriate. Cranial nerves II through XII grossly intact. Moving all extremities, speech is clear Procedures Open reduction internal fixation right distal femur supracondylar intra- articular fracture 03/16/17 Urinary Catheter: No Vascular Central Line Catheter: No A/P Assessment and Plan Right comminuted distal femur fracture and proximal tibia fracture with intra- articular involvement Orthopedic evaluated and patient underwent surgery on 03/16/17 with open reduction internal fixation of the right distal femur supracondylar intra- articular fracture Physical therapy recommendations indicate nonweightbearing right lower extremity Immobilizer at all times except for passive range of motion of [id number] 90. No active leg lifts or quad sets Daily dressing changes Pain control, patient still with postsurgical pain. Will adjust medications when appropriate Oxycodone 5 mg every 6 hours as needed for pain to5 Oxycodone 15 mg every 4 hours as needed for pain 610, changed to oxycodone 10 mg every 6 hours as needed for pain 610 Add oxycodone SR 20 mg every 12 hours Ibuprofen 600 mg 3 times daily History of Right total hip dislocation-stable Continue physical therapy Diabetes, chronic, A1c 5.9 Accu checks AC/HS with low dose SSI. Patient requiring 2 units of insulin daily Continue Glucophage 850 mg daily Leukocytosis, likely reactive, resolved Continue monitor CBC periodically Hypertension, improved Clonidine PRN Continue lisinopril 10 mg daily DVT prophylaxis: SCDs, Lovenox Discharge Planning Discharge per case management Warner Miller March 22, 2017 10:25
[2017-03-22] MEDS: oxyCODONE HCL 20 MG CONTROLLED RELEASE TAB PO SCH ×2 (12:28→20:39)
[2017-03-22] MEDS ORDERED: oxyCODONE HCL 20 MG CONTROLLED RELEASE TAB PO ONE (12:30)
[2017-03-22] MEDS: ENOXAPARIN SODIUM 30 MG/0.3 ML SYRINGE SQ SCH (15:54)
[2017-03-22 20:00] VITALS: BP 105/73; PULSE 76; RESP 20; TEMP 96.5; O2SAT 98
[2017-03-23] MEDS: IBUPROFEN 600 MG TAB PO SCH ×3 (06:16→21:58)
[2017-03-23] MEDS: INSULIN ASPART SUPPLEMENTAL SCALE SQ SCH ×4 (06:17→20:53)
[2017-03-23 08:00] VITALS: BP 134/78; PULSE 72; RESP 16; TEMP 97.4; O2SAT 97
[2017-03-23] MEDS: POLYETHYLENE GLYCOL 17 GM PKG PO SCH (09:00)
[2017-03-23] MEDS: SODIUM CHLORIDE 0.9% FLUSH 5 ML FLUSH IVF SCH ×2 (09:00→20:38)
[2017-03-23] MEDS: CALCIUM/VITAMIN D 250 MG/125 U TAB PO SCH ×3 (09:05→18:08)
[2017-03-23] MEDS: metFORMIN HCL 850 MG TAB PO SCH (09:05)
[2017-03-23] MEDS: CHOLECALCIFEROL (VIT D3) 1000 UNIT TAB PO SCH (09:05)
[2017-03-23] MEDS: LISINOPRIL 10 MG TAB PO SCH (09:05)
[2017-03-23] MEDS: oxyCODONE HCL 20 MG CONTROLLED RELEASE TAB PO SCH ×2 (09:06→20:46)
[2017-03-23] MEDS: BACITRACIN TOP OINT 15 GM TUBE TOPICAL SCH (09:09)
--- NOTE | 2017-03-23 12:41 | HHI.PR ---
Subjective Remarks Follow-up for R femur and tibia fractures. Patient states his pain level is improved currently as a 05/03. He wanted to bring it to my attention that the pain medication every 4 hours was better than every 6 hours, but states he will see how the long acting medication works. Objective Vitals Vital Signs Date Time Temp Pulse Resp B/P Pulse Ox O2 Delivery O2 Flow Rate FiO2 03/23/17 11:31 16 03/23/17 10:04 18 03/23/17 08:00 97.4 72 16 134/78 97 03/22/17 20:00 96.5 76 20 105/73 98 I/O 03/22/17 03/22/17 03/22/17 03/23/17 03/23/17 03/23/17 07:00 15:00 23:00 07:00 15:00 23:00 Intake Total 550 ml 240 ml 120 ml 360 ml Output Total 700 ml 1700 ml 375 ml 800 ml 200 ml Balance -150 ml -1700 ml -135 ml -680 ml 160 ml Intake Oral 550 ml 240 ml 120 ml 360 ml Output Urine Total 700 ml 900 ml 375 ml 800 ml 200 ml Stool Total 800 ml # Voids 3 3 2 1 # Bowel Movements 1 Objective Remarks GENERAL: Well-nourished well developed male in no apparent distress brushing his teeth. SKIN: Warm and dry. HEAD: Atraumatic. Normocephalic. CARDIOVASCULAR: Regular rate and rhythm. RESPIRATORY: No accessory muscle use. Clear to auscultation. Breath sounds equal bilaterally. MUSCULOSKELETAL: R knee with BELKIS wrap, lower leg swollen. NEUROLOGICAL: Awake and alert. Normal speech. PSYCHIATRIC: Appropriate mood and affect; insight and judgment normal. Procedures Open reduction internal fixation right distal femur supracondylar intra- articular fracture 03/16/17 Urinary Catheter: No Vascular Central Line Catheter: No A/P Problem List: (1) Femur fracture ICD Code: S72.90XA Status: Acute (2) Diabetes ICD Code: E11.9 Status: Chronic (3) Leukocytosis ICD Code: D72.829 Status: Acute Assessment and Plan Right comminuted distal femur fracture and proximal tibia fracture with intra- articular involvement Orthopedic evaluated and patient underwent surgery on 03/16/17 with open reduction internal fixation of the right distal femur supracondylar intra- articular fracture Physical therapy recommendations indicate nonweightbearing right lower extremity Immobilizer at all times except for passive range of motion of [id number] 90. No active leg lifts or quad sets Daily dressing changes Pain control: Oxycodone 5 mg every 6 hours as needed for pain 1-5 Oxycodone 15 mg every 6 hours as needed for pain 6-10 Oxycodone SR 20 mg every 12 hours Ibuprofen 600 mg 3 times daily History of right total hip dislocation: Stable Continue physical therapy Diabetes: Chronic A1c 5.9 Accu checks AC/HS with low dose SSI. BGL 175; patient refused insulin. Continue Glucophage 850 mg daily Leukocytosis, likely reactive: Resolved Continue monitor CBC periodically Anemia: Worse. Hemoglobin 9.7 on 03/17. Hb 14.2 on 03/12. Likely attributed to acute trauma. -Check am CBC Mild hyponatremia and hypochloremia: 03/15: Na 135 improving. Cl 97. -Check am BMP Hypertension: Improved Clonidine prn Continue Lisinopril 10 mg daily DVT prophylaxis: SCDs, Lovenox Problem Qualifiers (1) Femur fracture: Qualified Code: S72.351A - Closed displaced comminuted fracture of shaft of right femur, initial encounter (2) Diabetes: Qualified Code: E11.9 - Type 2 diabetes mellitus without complication, without long-term current use of insulin (3) Leukocytosis: Qualified Code: D72.829 - Leukocytosis, unspecified type Shwetha Brock March 23, 2017 12:41
[2017-03-23] MEDS: ENOXAPARIN SODIUM 30 MG/0.3 ML SYRINGE SQ SCH (14:45)
[2017-03-23] MEDS: ERGOCALCIFEROL (VIT D2) 50,000 UNIT CAP PO SCH (15:51)
[2017-03-23 20:00] VITALS: BP 133/79; PULSE 82; RESP 20; TEMP 96.2; O2SAT 96
[2017-03-24] MEDS: IBUPROFEN 600 MG TAB PO SCH ×3 (06:01→22:03)
[2017-03-24] MEDS: INSULIN ASPART SUPPLEMENTAL SCALE SQ SCH ×4 (06:05→20:56)
[2017-03-24 08:00] VITALS: BP 130/82; PULSE 82; RESP 19; TEMP 98; O2SAT 100
[2017-03-24] MEDS: metFORMIN HCL 850 MG TAB PO SCH (08:34)
[2017-03-24] MEDS: CALCIUM/VITAMIN D 250 MG/125 U TAB PO SCH ×3 (08:36→16:14)
[2017-03-24] MEDS: oxyCODONE HCL 20 MG CONTROLLED RELEASE TAB PO SCH ×2 (08:36→20:49)
[2017-03-24] MEDS: CHOLECALCIFEROL (VIT D3) 1000 UNIT TAB PO SCH (08:36)
[2017-03-24] MEDS: LISINOPRIL 10 MG TAB PO SCH (08:36)
[2017-03-24] MEDS: SODIUM CHLORIDE 0.9% FLUSH 5 ML FLUSH IVF SCH ×2 (08:37→20:55)
[2017-03-24] MEDS: BACITRACIN TOP OINT 15 GM TUBE TOPICAL SCH (08:38)
[2017-03-24] MEDS: POLYETHYLENE GLYCOL 17 GM PKG PO SCH (08:39)
[2017-03-24 09:10] LABS: HEMATOCRIT 31.1 % (39.0-51.0); MEAN CELL VOLUME 94.7 FL (80.0-100.0); MEAN CORPUSCULAR HGB CONC 32.7 % (32.0-36.0); PLATELET COUNT 399 TH/MM3 (150-450); RED BLOOD COUNT 3.28 MIL/MM3 (4.50-5.90); RED CELL DISTRIBUTION WIDTH 12.4 % (11.6-17.2); REVIEW FLAG FINAL; WHITE BLOOD COUNT 7.3 TH/MM3 (4.0-11.0)
[2017-03-24 09:59] LABS: POTASSIUM 4.3 MEQ/L (3.5-5.1)
[2017-03-24 10:07] LABS: BICARBONATE 27.6 MEQ/L (21.0-32.0)
--- NOTE | 2017-03-24 13:41 | HHI.PR ---
Subjective Remarks Follow-up for R femur and tibia fractures. Patient admits to pain but states he slept last night. Objective Vitals Vital Signs Date Time Temp Pulse Resp B/P Pulse Ox O2 Delivery O2 Flow Rate FiO2 03/24/17 09:36 20 03/24/17 08:00 98.0 82 19 130/82 100 03/24/17 07:01 20 03/23/17 20:00 96.2 82 20 133/79 96 03/23/17 17:03 16 I/O 03/23/17 03/23/17 03/23/17 03/24/17 03/24/17 03/24/17 07:00 15:00 23:00 07:00 15:00 23:00 Intake Total 120 ml 760 ml 240 ml 360 ml Output Total 800 ml 700 ml 1100 ml 750 ml Balance -680 ml 60 ml -860 ml -390 ml Intake Oral 120 ml 760 ml 240 ml 360 ml Output Urine Total 800 ml 700 ml 1100 ml 750 ml # Voids 2 1 Result Diagram: 03/24/1780403/24/17804 Objective Remarks GENERAL: Well-nourished well developed male in no apparent distress. SKIN: Warm and dry. CARDIOVASCULAR: Regular rate and rhythm. RESPIRATORY: No accessory muscle use. Clear to auscultation. Breath sounds equal bilaterally. MUSCULOSKELETAL: R knee with BELKIS wrap; right lower leg and foot swollen. Capillary refill normal in R toes. NEUROLOGICAL: Awake and alert. Normal speech. PSYCHIATRIC: Appropriate mood and affect; insight and judgment normal. Procedures Open reduction internal fixation right distal femur supracondylar intra- articular fracture 03/16/17 Urinary Catheter: No Vascular Central Line Catheter: No A/P Problem List: (1) Femur fracture ICD Code: S72.90XA Status: Acute (2) Diabetes ICD Code: E11.9 Status: Chronic (3) Leukocytosis ICD Code: D72.829 Status: Acute Assessment and Plan Right comminuted distal femur fracture and proximal tibia fracture with intra- articular involvement Orthopedic evaluated and patient underwent surgery on 03/16/17 with open reduction internal fixation of the right distal femur supracondylar intra- articular fracture Physical therapy recommendations indicate nonweightbearing right lower extremity Immobilizer at all times except for passive range of motion of knee 0-90. No active leg lifts or quad sets Daily dressing changes Pain control: Oxycodone 5 mg every 6 hours as needed for pain 1-5 Oxycodone 10 mg every 6 hours as needed for pain 6-10 Oxycodone SR 20 mg every 12 hours Ibuprofen 600 mg 3 times daily -Advised to ice and elevate R leg to reduce swelling History of right total hip dislocation: Stable Continue physical therapy Diabetes: Chronic, stable. A1c 5.9 Accu checks AC/HS with low dose SSI. BGLs good today. Patient did not require any insulin. Continue Glucophage 850 mg daily Leukocytosis, likely reactive: Resolved Continue monitor CBC periodically Anemia: Improving. Hemoglobin 9.7 on 03/17. Hb 14.2 on 03/12. Likely attributed to acute trauma. -CBC today with hemoglobin 10.2. Mild hyponatremia and hypochloremia: Resolved. 03/15: Na 135-->142 today. Cl 97-- >106 today. Hypertension: Resolved. Clonidine prn Continue Lisinopril 10 mg daily DVT prophylaxis: SCDs, Lovenox Problem Qualifiers (1) Femur fracture: Qualified Code: S72.351A - Closed displaced comminuted fracture of shaft of right femur, initial encounter (2) Diabetes: Qualified Code: E11.9 - Type 2 diabetes mellitus without complication, without long-term current use of insulin (3) Leukocytosis: Qualified Code: D72.829 - Leukocytosis, unspecified type Shwetha Brock March 24, 2017 13:41
[2017-03-24] MEDS: CYCLOBENZAPRINE HCL 10 MG TAB PO PRN (14:16)
[2017-03-24] MEDS: ENOXAPARIN SODIUM 30 MG/0.3 ML SYRINGE SQ SCH (14:16)
[2017-03-24 20:00] VITALS: BP 126/77; PULSE 76; RESP 22; TEMP 97.3; O2SAT 97
[2017-03-25] MEDS: MAGNESIUM HYDROXIDE SUSP 30 ML CUP PO PRN (02:37)
[2017-03-25] MEDS ORDERED: PANTOPRAZOLE SODIUM 40 MG VIAL IV PUSH ONE (05:30)
[2017-03-25] MEDS: IBUPROFEN 600 MG TAB PO SCH (06:00)
[2017-03-25] MEDS: INSULIN ASPART SUPPLEMENTAL SCALE SQ SCH ×4 (06:49→21:00)
[2017-03-25 08:25] VITALS: BP 141/85; PULSE 98; RESP 19; TEMP 97.1; O2SAT 99
[2017-03-25] MEDS: metFORMIN HCL 850 MG TAB PO SCH (09:00)
[2017-03-25] MEDS: BACITRACIN TOP OINT 15 GM TUBE TOPICAL SCH (09:00)
[2017-03-25] MEDS: oxyCODONE HCL 20 MG CONTROLLED RELEASE TAB PO SCH (09:00)
[2017-03-25] MEDS: SODIUM CHLORIDE 0.9% FLUSH 5 ML FLUSH IVF SCH ×2 (09:00→21:00)
[2017-03-25] MEDS: PANTOPRAZOLE SOD 40 MG DELAYED RELEASE TAB PO SCH (09:00)
[2017-03-25] MEDS: CALCIUM/VITAMIN D 250 MG/125 U TAB PO SCH ×3 (09:00→17:15)
[2017-03-25] MEDS: LISINOPRIL 10 MG TAB PO SCH (09:00)
[2017-03-25] MEDS: CHOLECALCIFEROL (VIT D3) 1000 UNIT TAB PO SCH (09:00)
[2017-03-25] MEDS: POLYETHYLENE GLYCOL 17 GM PKG PO SCH (09:00)
[2017-03-25] MEDS ORDERED: NALOXONE HCL 0.4 MG/ML AMP IV PRN (09:30)
[2017-03-25] MEDS ORDERED: MORPHINE SULFATE 4 MG/ML INJ IV PRN (09:30)
[2017-03-25] MEDS ORDERED: HYDROmorphone HCL PF 1 MG/ML VIAL IV PUSH ONE (09:30)
--- NOTE | 2017-03-25 10:44 | HHI.PR ---
Subjective Remarks complaining of abdominal pain. pain started last night; more or less localized to the RUQ. had one episode of non-bloody emesis last night. no black stool or rectal bleed. pain to the right leg is fairly controlled. Objective Vitals Vital Signs Date Time Temp Pulse Resp B/P Pulse Ox O2 Delivery O2 Flow Rate FiO2 03/25/17 08:25 97.1 98 19 141/85 99 03/25/17 04:44 16 03/24/17 23:03 16 03/24/17 21:49 16 03/24/17 20:00 97.3 76 22 126/77 97 I/O 03/24/17 03/24/17 03/24/17 03/25/17 03/25/17 03/25/17 07:00 15:00 23:00 07:00 15:00 23:00 Intake Total 360 ml 480 ml 240 ml Output Total 750 ml 500 ml 600 ml 800 ml Balance -390 ml -500 ml -120 ml -560 ml Intake Oral 360 ml 480 ml 240 ml Output Urine Total 750 ml 500 ml 600 ml 800 ml # Bowel Movements 1 Result Diagram: 03/24/1780403/24/17804 Objective Remarks GENERAL: This is a well-nourished, well-developed patient, in no apparent distress. CARDIOVASCULAR: Regular rate and regular rhythm without murmurs, gallops, or rubs. RESPIRATORY: Clear to auscultation. Breath sounds equal bilaterally. No wheezes , rales, or rhonchi. GASTROINTESTINAL: Abdomen soft, RUQ tenderness, nondistended. Normal, active bowel sounds MUSCULOSKELETAL: Extremities without clubbing, cyanosis, or edema. NEURO: Alert & Oriented x4 to person, place, time, situation. Moves all ext x4 Procedures Open reduction internal fixation right distal femur supracondylar intra- articular fracture 03/16/17 Medications and IVs Current Medications Ondansetron HCl (Zofran Inj) 4 mg ONCE ONCE IVP Last administered on t 02:13; Start 03/12/17 at 02:15; Stop 03/12/17 at 02:16; Status DC Sodium Chloride (NS Flush) 2 ml UNSCH PRN IVF FLUSH AFTER USING IV ACCESS; Start 03/12/17 at 02:15; Stop 03/12/17 at 04:58; Status DC Hydromorphone HCl (Dilaudid Pf Inj) 0.5 mg ONCE ONCE IVS Last administered on 03/12/17 02:14; Start 03/12/17 at 02:15; Stop 03/12/17 at 02:16; Status DC Lidocaine/ Epinephrine (Xylocaine-Epi 1%-1:100,000 Inj) 10 ml ONCE ONCE INFIL Last administered on 03/12/17 03:15; Start 03/12/17 at 02:15; Stop 03/12/17 at 02:16; Status DC Lidocaine/ Epinephrine (Xylocaine-Epi 1%-1:100,000 Inj) 20 ml STK-MED ONCE .ROUTE ; Start 03/12/17 at 02:31; Stop 03/12/17 at 02:32; Status DC Ondansetron HCl (Zofran Inj) 4 mg ONCE ONCE IVP Last administered on 03:28; Start 03/12/17 at 03:15; Stop 03/12/17 at 03:18; Status DC Sodium Chloride (NS Flush) 2 ml UNSCH PRN IVF FLUSH AFTER USING IV ACCESS; Start 03/12/17 at 03:15; Stop 03/12/17 at 04:58; Status DC Hydromorphone HCl (Dilaudid Pf Inj) 0.5 mg ONCE ONCE IVS Last administered on 03/12/17 03:29; Start 03/12/17 at 03:15; Stop 03/12/17 at 03:18; Status DC Hydromorphone HCl (Dilaudid Pf Inj) 1 mg ONCE ONCE IV PUSH Last administered on 03/12/17 04:44; Start 03/12/17 at 04:30; Stop 03/12/17 at 04:31; Status DC Sodium Chloride (NS Flush) 2 ml UNSCH PRN IV FLUSH FLUSH AFTER USING IV ACCESS ; Start 03/12/17 at 05:00; Stop 03/16/17 at 15:53; Status DC Sodium Chloride (NS Flush) 2 ml BID IV FLUSH Last administered on 03/15/17 12: 25; Start 03/12/17 at 09:00; Stop 03/16/17 at 15:53; Status DC Ondansetron HCl (Zofran Inj) 4 mg Q6H PRN IVP NAUSEA OR VOMITING Last administered on 03/25/17 06:09; Start 03/12/17 at 05:00 Naloxone HCl (Narcan Inj) 0.4 mg UNSCH PRN IV SEE LABEL COMMENTS; Start at 05:00 Hydromorphone HCl (Dilaudid Pf Inj) 1 mg Q4H PRN IV PUSH pain >5 Last administered on 03/12/17 08:40; Start 03/12/17 at 05:00; Stop 03/12/17 at 11:46 ; Status DC Hydromorphone HCl (Dilaudid Pf Inj) 1 mg Q3H PRN IV PUSH BREAKTHROUGH PAIN Last administered on 03/16/17 09:35; Start 03/12/17 at 12:00; Stop 03/16/17 at 15:25; Status DC Dextrose (D50w (Vial) Inj) 50 ml UNSCH PRN IV HYPOGLYCEMIA-SEE COMMENTS; Start 03/12/17 at 12:00 Glucagon (Glucagon Inj) 1 mg UNSCH PRN OTHER HYPOGLYCEMIA-SEE COMMENTS; Start 03/12/17 at 12:00 Insulin Aspart (NovoLOG SUPPLEMENTAL SCALE) 1 ACHS SLIDING SCALE SQ Last administered on 03/25/17 06:49; Start 03/12/17 at 16:00 Clonidine (Catapres) 0.1 mg Q6H PRN PO SBP> OR = 180, DBP> OR = 100; Start at 12:45 Oxycodone/ Acetaminophen (Percocet 5-325 Mg) 1 tab STAT STAT PO Last administered on 03/12/17 15:40; Start 03/12/17 at 14:51; Stop 03/13/17 at 11:08 ; Status DC Oxycodone/ Acetaminophen (Percocet 5-325 Mg) 1 tab Q3H PRN PO PAIN 1-10 IF ABLE TO TAKE PO Last administered on 03/13/17 10:10; Start 03/12/17 at 18:00; Stop 03/13/17 at 11:09; Status DC Oxycodone HCl (Roxicodone) 10 mg Q4H PRN PO PAIN SCALE 8 TO 10 Last administered on 03/15/17 06:51; Start 03/13/17 at 11:15; Stop 03/15/17 at 06:55 ; Status DC Oxycodone HCl (Roxicodone) 5 mg Q4H PRN PO PAIN SCALE 2 TO 5; Start 03/13/17 at 11:15; Stop 03/22/17 at 10:26; Status DC Magnesium Hydroxide (Milk Of Magnjoey Liq) 30 ml DAILY PRN PO CONSTIPATION Last administered on 03/25/17 02:37; Start 03/13/17 at 11:15 Polyethylene Glycol 17 gm 17 gm DAILY PO Last administered on 03/21/17 08:47; Start 03/14/17 at 09:00 Lactated Ringer's 1,000 ml @ 30 mls/hr Q24H PRN IV SEE LABEL COMMENTS; Start at 01:15; Stop 03/18/17 at 01:14; Status DC Sodium Chloride (NS 500 ml Inj) 500 ml @ 30 mls/hr [id number] PRN IV SEE LABEL COMMENTS; Start 03/15/17 at 01:15; Stop 03/18/17 at 01:14; Status DC Povidone Iodine (Betadine 5% Antisepsis Kit) 1 applic STRIPPER SOFT PLASTIC PRN EACH NARE SEE LABEL COMMENTS; Start 03/15/17 at 01:15; Stop 03/18/17 at 01:14; Status DC Chlorhexidine Gluconate (Chlorhexidine 2% Cloth) 3 pack STRIPPER SOFT PLASTIC PRN TOPICAL SEE LABEL COMMENTS; Start 03/15/17 at 01:15; Stop 03/18/17 at 01:14; Status DC Oxycodone HCl (Roxicodone) 15 mg Q4H PRN PO PAIN SCALE 6 TO 10 Last administered on 03/22/17 09:53; Start 03/15/17 at 07:15; Stop 03/22/17 at 10:24 ; Status DC Enoxaparin Sodium (Lovenox Inj) 30 mg ONCE ONCE SQ Last administered on 08:03; Start 03/15/17 at 07:00; Stop 03/15/17 at 07:01; Status DC Bisacodyl 10 mg 10 mg DAILY PRN RECTAL CONSTIPATION Last administered on 17:47; Start 03/15/17 at 16:15 Cefazolin Sodium/ Dextrose (Ancef 2 Gm Premix) 50 ml @ As Directed STK-MED ONCE .ROUTE Last administered on 03/16/17 13:32; Start 03/16/17 at 12:52; Stop at 12:53; Status DC Gentamicin Sulfate (Gentamicin Inj) 240 mg STK-MED ONCE .ROUTE Last administered on 03/16/17 13:43; Start 03/16/17 at 12:52; Stop 03/16/17 at 12:53 ; Status DC Vancomycin HCl 1000 mg 1,000 mg STK-MED ONCE .ROUTE Last administered on 13:32; Start 03/16/17 at 12:53; Stop 03/16/17 at 12:54; Status DC Sodium Chloride (NS 250 ml Inj) 250 ml @ As Directed STK-MED ONCE .ROUTE Last administered on 03/16/17 13:32; Start 03/16/17 at 12:54; Stop 03/16/17 at 12:55 ; Status DC Acetaminophen (Ofirmev Inj) 1,000 mg STK-MED ONCE IV ; Start 03/16/17 at 12:57; Stop 03/16/17 at 12:58; Status DC Midazolam HCl (Versed Inj) 2 mg STK-MED ONCE .ROUTE ; Start 03/16/17 at 12:58; Stop 03/16/17 at 12:59; Status DC Fentanyl Citrate (fentaNYL INJ) 250 mcg STK-MED ONCE .ROUTE ; Start 03/16/17 at 12:58; Stop 03/16/17 at 12:59; Status DC Famotidine (Pepcid Inj) 20 mg STK-MED ONCE .ROUTE ; Start 03/16/17 at 12:58; Stop 03/16/17 at 12:59; Status DC Dexamethasone Sodium Phosphate (Decadron Inj) 4 mg STK-MED ONCE .ROUTE ; Start 03/16/17 at 12:58; Stop 03/16/17 at 12:59; Status DC Hydromorphone HCl 2 mg 2 mg STK-MED ONCE .ROUTE ; Start 03/16/17 at 13:01; Stop 03/16/17 at 13:02; Status DC Lactated Ringer's (Lr 1000 ml Inj) 1,000 ml @ 80 mls/hr [id number] IV Last administered on 03/17/17 02:57; Start 03/16/17 at 15:21; Stop 03/18/17 at 10:41 ; Status DC IV Flush (NS Flush) 2 ml UNSCH PRN IVF FLUSH AFTER USING IV ACCESS; Start 03/16 at 15:30 IV Flush (NS Flush) 2 ml BID IVF Last administered on 03/20/17 07:42; Start at 21:00 Miscellaneous Information (Post-op Orders (for Pharmacy)) STAT ONCE XX ; Start 03/16/17 at 15:30; Stop 03/16/17 at 16:00; Status DC Enoxaparin Sodium 30 mg 30 mg Q24H SQ Last administered on 03/24/17 14:16; Start 03/17/17 at 15:00 Cefazolin Sodium/ Dextrose 50 ml @ 100 mls/hr Q8H IV Last administered on 03/18 12:46; Start 03/16/17 at 21:00; Stop 03/18/17 at 13:29; Status DC Vancomycin HCl/ Sodium Chloride (Vancomycin Inj/ NS 250 ml Inj) 250 ml @ 250 mls/hr Q12H IV ; Start 03/16/17 at 16:00; Stop 03/16/17 at 16:14; Status DC Miscellaneous Information UNSCH PRN XX SEE LABEL COMMENTS; Start 03/16/17 at 15:30 Miscellaneous Medication ([facility]) ONCE ONCE XX ; Start at 15:30; Stop 03/16/17 at 15:59; Status DC Calcium/Vitamin D (Oscal-D 250-125) 250 mg TID PO Last administered on 16:14; Start 03/16/17 at 18:00 Diphenhydramine HCl (Benadryl) 25 mg Q6H PRN PO ITCHING; Start 03/16/17 at 15: 30 Cholecalciferol (Vitamin D3) 1,000 units DAILY PO Last administered on 08:36; Start 03/17/17 at 09:00 Ergocalciferol (Drisdol) 50,000 units Q7D PO Last administered on 03/23/17 15: 51; Start 03/16/17 at 16:00 Hydromorphone HCl (Dilaudid Pf Inj) 2 mg Q3H PRN IV PUSH BREAKTHROUGH PAIN Last administered on 03/18/17 08:55; Start 03/16/17 at 18:00; Stop 03/18/17 at 10:41; Status DC Bisacodyl (Dulcolax Supp) 10 mg DAILY PRN RECTAL CONSTIPATION; Start 03/16/17 at 15:45; Status Cancel Fentanyl Citrate (fentaNYL INJ) 250 mcg STK-MED ONCE .ROUTE ; Start 03/16/17 at 15:50; Stop 03/16/17 at 15:51; Status DC Morphine Sulfate (*morphine INJ PERIprocedure ONLY) 8 mg STK-MED ONCE .ROUTE Last administered on 03/16/17 15:55; Start 03/16/17 at 15:55; Stop 03/16/17 at 15:56; Status DC Morphine Sulfate 8 mg 8 mg STK-MED ONCE .ROUTE Last administered on 03/16/17 16:05; Start 03/16/17 at 16:05; Stop 03/16/17 at 16:06; Status DC Vancomycin HCl/ Sodium Chloride (Vancomycin Inj/ NS 250 ml Inj) 250 ml @ 250 mls/hr Q12H IV Last administered on 03/18/17 01:39; Start 03/17/17 at 01:00; Stop 03/18/17 at 01:59; Status DC Morphine Sulfate (*morphine INJ PERIprocedure ONLY) 8 mg STK-MED ONCE .ROUTE Last administered on 03/16/17 16:17; Start 03/16/17 at 16:17; Stop 03/16/17 at 16:18; Status DC Hydromorphone HCl (*DILAUDID PF INJ PERIprocedural ONLY) 1 mg STK-MED ONCE .ROUTE Last administered on 03/16/17 16:39; Start 03/16/17 at 16:39; Stop at 16:40; Status DC Cyclobenzaprine HCl (Flexeril) 10 mg Q8H PRN PO muscle spasm Last administered on 03/24/17 14:16; Start 03/18/17 at 15:00 Bacitracin (Baciguent Oint) 1 applic DAILY TOPICAL Last administered on 09:00; Start 03/19/17 at 09:00 Lisinopril (Prinivil) 10 mg DAILY PO Last administered on 03/24/17 08:36; Start 03/19/17 at 11:30 Metformin HCl (Glucophage) 850 mg DAILY PO Last administered on 03/24/17 08:34 ; Start 03/19/17 at 11:30 Ibuprofen (Motrin) 600 mg Q8HR PO Last administered on 03/24/17 22:03; Start 03/21/17 at 14:00; Status Hold Oxycodone HCl (Roxicodone) 10 mg Q6HR PRN PO PAIN SCALE 6 TO 10 Last administered on 03/25/17 03:44; Start 03/22/17 at 12:00; Status Hold Oxycodone HCl (OxyCONTIN CR) 20 mg Q12HR PO Last administered on 03/24/17 20: 49; Start 03/22/17 at 11:00; Status Hold Oxycodone HCl (Roxicodone) 5 mg Q6HR PRN PO PAIN SCALE 2 TO 5 Last administered on 03/25/17 06:47; Start 03/22/17 at 12:00; Status Hold Oxycodone HCl (OxyCONTIN CR) 20 mg ONCE ONCE PO ; Start 03/22/17 at 12:30; Stop 03/22/17 at 12:31; Status DC Propofol (Diprivan 200 Mg/20 ml Inj) 400 mg STK-MED ONCE IV ; Start 03/16/17 at 14:58; Stop 03/24/17 at 14:59; Status DC Ephedrine Sulfate (ePHEDrine/NS 25 MG/5 ML SYR) 25 mg STK-MED ONCE IV ; Start at 14:58; Stop 03/24/17 at 14:59; Status DC Phenylephrine HCl (Neosynephrine/ NS 1000 Mcg/10ml Syr) 1,000 mcg STK-MED ONCE IV ; Start 03/16/17 at 14:58; Stop 03/24/17 at 14:59; Status DC Ondansetron HCl (Zofran Inj) 4 mg STK-MED ONCE IV PUSH ; Start 03/16/17 at 14:58 ; Stop 03/24/17 at 14:59; Status DC Pantoprazole Sodium (Protonix Inj) 40 mg ONCE ONCE IV PUSH Last administered on 03/25/17 06:07; Start 03/25/17 at 05:30; Stop 03/25/17 at 05:31; Status DC Pantoprazole Sodium (Protonix) 40 mg DAILY PO ; Start 03/25/17 at 09:00; Status Hold Morphine Sulfate (Morphine Inj) 2 mg Q3H PRN IV Pain 3-5; if unable to take PO ; Start 03/25/17 at 09:30 Morphine Sulfate (Morphine Inj) 4 mg Q3H PRN IV Pain 6-10;if unable to take PO ; Start 03/25/17 at 09:30 Naloxone HCl (Narcan Inj) 0.4 mg UNSCH PRN IV SEE LABEL COMMENTS; Start at 09:30 Hydromorphone HCl (Dilaudid Pf Inj) 1 mg ONCE ONCE IV PUSH Last administered on 03/25/17t 09:30; Start 03/25/17 at 09:30; Stop 03/25/17 at 09:31; Status DC A/P Assessment and Plan A/P Abdominal pain/ emesis stop NSAIDs- received a dose of Protonix. check CT of the abdomen and continue with pain control. Right comminuted distal femur fracture and proximal tibia fracture with intra- articular involvement Orthopedic evaluated and patient underwent surgery on 03/16/17 with open reduction internal fixation of the right distal femur supracondylar intra- articular fracture - continue with pain control and rehab efforts. Diabetes: Chronic, stable. Accu checks AC/HS with low dose SSI. hold metformin today in light of using contrast with CT study today. Anemia: stable H/H- will monitor periodically. Hypertension: controlled. Clonidine prn Continue Lisinopril 10 mg daily DVT prophylaxis: Swati Pérez Mohammadreza MD Mar 25, 2017 10:44 Continue monitor CBC periodically Anemia: Improving. Hemoglobin 9.7 on 03/17. Hb 14.2 on 03/12. Likely attributed to acute trauma. -CBC today with hemoglobin 10.2. Mild hyponatremia and hypochloremia: Resolved. 03/15: Na 135-->142 today. Cl 97-- >106 today. Hypertension: Resolved. Clonidine prn Continue Lisinopril 10 mg daily DVT prophylaxis: Swati Pérez Mohammadreza MD Mar 25, 2017 10:44
[2017-03-25 10:46] LABS: AUTOMATED NEUTROPHIL # 9.1 TH/MM3 (1.8-7.7); BASOPHIL % 0.3 % (0.0-2.0); EOSINOPHIL # 0.2 TH/MM3 (0-0.4); EOSINOPHIL % 1.7 % (0.0-4.0); HEMATOCRIT 32.9 % (39.0-51.0); HEMO FLAGS DIFF FINAL; LYMPH % 8.5 % (9.0-44.0); LYMPHOCYTE # 0.9 TH/MM3 (1.0-4.8); MEAN CELL VOLUME 92.7 FL (80.0-100.0); MEAN CORPUSCULAR HEMOGLOBIN 30.6 PG (27.0-34.0); MONO % 5.7 % (0.0-8.0); NEUT % 83.8 % (16.0-70.0); PLATELET COUNT 419 TH/MM3 (150-450); RED BLOOD COUNT 3.54 MIL/MM3 (4.50-5.90); RED CELL DISTRIBUTION WIDTH 12.2 % (11.6-17.2); WHITE BLOOD COUNT 10.8 TH/MM3 (4.0-11.0)
[2017-03-25 10:56] LABS: CHLORIDE 103 MEQ/L (98-107); POTASSIUM 4.1 MEQ/L (3.5-5.1); SODIUM (NA) 138 MEQ/L (136-145)
[2017-03-25 10:59] LABS: ANION GAP 7 MEQ/L (5-15); BICARBONATE 28.1 MEQ/L (21.0-32.0)
[2017-03-25 11:00] LABS: BLOOD UREA NITROGEN 10 MG/DL (7-18)
[2017-03-25 11:02] LABS: ALT (GPT) 30 U/L (12-78); AST (GOT) 21 U/L (15-37); GLOMERULAR FILTRATION RATE 119 ML/MIN (>89)
[2017-03-25 11:04] LABS: TOTAL BILIRUBIN ADULT 0.6 MG/DL (0.2-1.0)
[2017-03-25 11:05] LABS: ALKALINE PHOSPHATASE 116 U/L (45-117)
[2017-03-25] MEDS: MORPHINE SULFATE 4 MG/ML INJ IV PRN ×3 (13:05→21:30)
[2017-03-25] MEDS ORDERED: IOHEXOL 350 MG/ML 10 ML VIAL (for RAD DIAG) IV ONE (14:01)
[2017-03-25] MEDS: ENOXAPARIN SODIUM 30 MG/0.3 ML SYRINGE SQ SCH (15:00)
--- NOTE | 2017-03-25 15:12 | RADRPT ---
EXAM DATE/TIME: 03/25/2017 13:50 [facility] COMPARISON: No previous studies available for comparison. INDICATIONS : Right upper quadrant pain IV CONTRAST: 95 cc Omnipaque 350 (iohexol) IV ORAL CONTRAST: No oral contrast ingested. RADIATION DOSE: 21.69 CTDIvol (mGy) MEDICAL HISTORY : Diabetes mellitus type 1. SURGICAL HISTORY : hernia repair ENCOUNTER: Initial ACUITY: 1 day PAIN SCALE: 8/10 LOCATION: Right upper quadrant TECHNIQUE: Volumetric scanning of the abdomen was performed. Using automated exposure control and adjustment of the mA and/or kV according to patient size, radiation dose was kept as low as reasonably achievable to obtain optimal diagnostic quality images. FINDINGS: LOWER LUNGS: Atelectasis of the dependent portions of the lung bases. LIVER: Moderate amount of sludge and possible calculi at the dependent portion of the gallbladder. Asymmetri c gallbladder wall thickening and moderate severity pericholecystic inflammatory change is noted. Fin dings are suspicious for acute cholecystitis the proper clinical setting. The coarse calcifications i n the left lobe of the liver likely represent old granulomatous disease. Liver is otherwise homogeneo us and within normal limits. SPLEEN: Normal size without lesion. PANCREAS: Within normal limits. KIDNEYS: Normal in size and shape. There is no mass, stone, or hydronephrosis. ADRENAL GLANDS: Within normal limits. AORTA/RETROPERITONEAL: There is no aneurysm or lymphadenopathy. BOWEL/MESENTERY: 3 cm second portion duodenum diverticulum adjacent to the pancreatic head. No evidence of bowel dilat ation. No free air or free fluid. Appendix within normal limits. ABDOMINAL WALL: Within normal limits. MUSCULOSKELETAL: [employer] image shows dislocated right total hip prosthesis. POST CONTRAST: No abnormal areas of enhancement are seen. CONCLUSION: 1. Gallbladder sludge and possible stones. Pericholecystic inflammatory changes and gallbladder wall thickening suspicious for acute cholecystitis. 2. [employer] image showing dislocated right total hip prosthesis. Finding may be chronic. Oscar Boyd MD on March 25, 2017 at 15:03 Board Certified Radiologist. This report was verified electronically.
[2017-03-25] MEDS: PIPERACIL-TAZO 3.375 GM PREMIX 50 ML IV SCH ×2 (17:00→23:39)
[2017-03-25] MEDS: SODIUM CHLOR 0.9% 1000 ML INJ 1,000 ML IV SCH (17:14)
[2017-03-25 20:00] VITALS: BP 126/77; PULSE 76; RESP 22; TEMP 97.3; O2SAT 97
[2017-03-25] MEDS: NALOXONE HCL 0.4 MG/ML AMP IV PRN (21:19)
[2017-03-26] MEDS: MORPHINE SULFATE 4 MG/ML INJ IV PRN ×5 (01:00→21:25)
[2017-03-26] MEDS: SODIUM CHLOR 0.9% 1000 ML INJ 1,000 ML IV SCH ×2 (04:04→18:46)
[2017-03-26] MEDS: PIPERACIL-TAZO 3.375 GM PREMIX 50 ML IV SCH ×4 (04:50→23:50)
[2017-03-26] MEDS: INSULIN ASPART SUPPLEMENTAL SCALE SQ SCH ×4 (06:38→21:00)
--- NOTE | 2017-03-26 07:37 | MB ---
cc: ANA LAURA GRANADOS M.D. DATE OF CONSULTATION 03/25/2017 REASON FOR CONSULTATION Acute cholecystitis HISTORY OF PRESENT ILLNESS The patient is a 62-year-old male who recently underwent ORIF of a distal femur fracture and is in a splint for his tibial plateau fracture. The patient had pain of the right side of the mid-abdomen with nonbloody emesis last night. The patient states that his pain is better with pain medicine today. CT scan of the abdomen was obtained which demonstrates asymmetric gallbladder wall thickening with moderate pericholecystic inflammatory change. There is sludge and possible calculi in the dependent portion of the gallbladder. PAST MEDICAL HISTORY Significant for - 1. Diet-controlled diabetes. 2. Gout. PAST SURGICAL HISTORY 1. Previous right hip replacement. 2. Cervical spine fusion C5-C6. 3. Multiple hernia repairs. ALLERGIES The patient has no known allergies. SOCIAL HISTORY He smokes one-half pack per day. He drinks a few beers every couple of days. He denies any illicit drug use. REVIEW OF SYSTEMS Significant for pain in the right leg and previous pain in the abdomen which is now substantially subsided. PHYSICAL EXAMINATION GENERAL: Physical exam reveals a male lying quietly in the bed. He is alert, cooperative and oriented. VITAL SIGNS: BP 141/85, pulse 98, respirations 19, temperature 97.1, 99% saturation on room air. HEENT: Sclerae anicteric. Pupils are reactive. Dentition is poor with multiple caries and teeth chipped and some missing. CHEST: Clear to auscultation. CARDIAC EXAM: Regular rate and rhythm. ABDOMEN: Soft with minimal tenderness in the right midabdomen. The patient does not have any CVA tenderness. There is no guarding or rebound. PULSES: Present. EXTREMITIES: There is a splint in place on the right leg. The patient is able to wiggle his toes. NEUROLOGIC EXAM: Nonfocal. LABORATORY VALUES WBCs today 10.8, hemoglobin 10.8, hematocrit 32.9, platelets 419,000. Chemistries essentially within normal limits except for random glucose of 139. Liver function tests are within normal limits. Coags normal with INR of 1.0. ASSESSMENT Probable cholecystitis. PLAN I have recommended to the patient that he consider undergoing cholecystectomy while he is still on the hospital; he declined to do so. He was anxious that another surgical procedure was recommended to him and was not sure since he was feeling better that surgery was necessary. I explained to him that he was receiving pain medicine to make him feel better and that we had a time available for him to have surgery in the next 24 hours. I indicated to him that he could very well have another attack the next time he had a meal and that if he declined it might be a bit of time before we would be able to accommodate his needs to have an urgent surgical procedure. I once again recommended to him to consider having surgery while he is in the hospital during this stay; he declined to have this done and would rather wait. Given the patient's refusal to have surgery at this time in spite of my explanation, we will sign off and see him back as needed. Thank you for allowing us the opportunity to care for this individual. We will be available as needed. MD ANN MARIE Whitney/YOEL /7:40 PM /7:29 AM
[2017-03-26 08:00] VITALS: BP 114/73; PULSE 86; RESP 18; TEMP 97.2; O2SAT 97
[2017-03-26] MEDS: SODIUM CHLORIDE 0.9% FLUSH 5 ML FLUSH IVF SCH ×2 (09:00→21:00)
[2017-03-26] MEDS: POLYETHYLENE GLYCOL 17 GM PKG PO SCH (09:00)
[2017-03-26] MEDS: LISINOPRIL 10 MG TAB PO SCH (09:00)
[2017-03-26] MEDS: BACITRACIN TOP OINT 15 GM TUBE TOPICAL SCH (09:00)
[2017-03-26] MEDS: CHOLECALCIFEROL (VIT D3) 1000 UNIT TAB PO SCH (09:11)
[2017-03-26] MEDS: CALCIUM/VITAMIN D 250 MG/125 U TAB PO SCH ×3 (09:11→17:59)
--- NOTE | 2017-03-26 11:06 | HHI.PR ---
Subjective Remarks abdominal pain is slightly better today. no nausea or vomiting. no fever. has some pain to the right lower extremity. Objective Vitals Vital Signs Date Time Temp Pulse Resp B/P Pulse Ox O2 Delivery O2 Flow Rate FiO2 03/26/17 10:02 16 03/26/17 08:00 97.2 86 18 114/73 97 03/25/17 20:00 97.3 76 22 126/77 97 I/O 03/25/17 03/25/17 03/25/17 03/26/17 03/26/17 03/26/17 07:00 15:00 23:00 07:00 15:00 23:00 Intake Total 240 ml 1550 ml 480 ml Output Total 800 ml 1100 ml 400 ml 150 ml Balance -560 ml 450 ml 80 ml -150 ml Intake Oral 240 ml 1550 ml 480 ml Output Urine Total 800 ml 1100 ml 400 ml 150 ml # Voids 7 # Bowel Movements 1 0 Result Diagram: 03/25/17 1020 03/25/17 1020 Imaging Last Impressions Abdomen CT 03/25/17 0954 Signed Impressions: Service Date/Time: March 13:50 - CONCLUSION: 1. Gallbladder sludge and possible stones. Pericholecystic inflammatory changes and gallbladder wall thickening suspicious for acute cholecystitis. 2. Proofer Black And White image showing dislocated right total hip prosthesis. Finding may be chronic. Oscar Boyd MD Femur X-Ray 03/16/17 0000 Signed Impressions: Service Date/Time: Thursday, March 16, 2017 15:08 - CONCLUSION: Satisfactory appearance of right distal femur ORIF Michael Garcia MD Soft Tissue Ultrasound 03/13/17 0000 Signed Impressions: Service Date/Time: Monday, March 13, 2017 11:02 - CONCLUSION: Focused sonographic examination in the region of the right hip was performed. No focal fluid collections identified. Oscar Boyd MD Lower Extremity CT 03/12/17 0000 Signed Impressions: Service Date/Time: Monday, March 13, 2017 07:52 - CONCLUSION: Comminuted fractures of the distal femur and proximal tibia with intra-articular involvement. Oscar Boyd MD Knee X-Ray 03/12/17 0000 Signed Impressions: Service Date/Time: Sunday, March 12, 2017 02:18 - CONCLUSION: 1. Comminuted intra-articular fracture of distal femur with mild displacement. Also mildly displaced medial tibial plateau fracture. John Kwan MD Objective Remarks GENERAL: This is a well-nourished, well-developed patient, in no apparent distress. CARDIOVASCULAR: Regular rate and regular rhythm without murmurs, gallops, or rubs. RESPIRATORY: Clear to auscultation. Breath sounds equal bilaterally. No wheezes , rales, or rhonchi. GASTROINTESTINAL: Abdomen soft, RUQ tenderness-improved , nondistended. Normal, active bowel sounds MUSCULOSKELETAL: Extremities with right pedal edema. NEURO: Alert & Oriented x4 to person, place, time, situation. Moves all ext x4 Procedures Open reduction internal fixation right distal femur supracondylar intra- articular fracture 03/16/17 Medications and IVs Current Medications Ondansetron HCl (Zofran Inj) 4 mg ONCE ONCE IVP Last administered on 02:13; Start 03/12/17 at 02:15; Stop 03/12/17 at 02:16; Status DC Sodium Chloride (NS Flush) 2 ml UNSCH PRN IVF FLUSH AFTER USING IV ACCESS; Start 03/12/17 at 02:15; Stop 03/12/17 at 04:58; Status DC Hydromorphone HCl (Dilaudid Pf Inj) 0.5 mg ONCE ONCE IVS Last administered on 03/12/17 02:14; Start 03/12/17 at 02:15; Stop 03/12/17 at 02:16; Status DC Lidocaine/ Epinephrine (Xylocaine-Epi 1%-1:100,000 Inj) 10 ml ONCE ONCE INFIL Last administered on 03/12/17 03:15; Start 03/12/17 at 02:15; Stop 03/12/17 at 02:16; Status DC Lidocaine/ Epinephrine (Xylocaine-Epi 1%-1:100,000 Inj) 20 ml STK-MED ONCE .ROUTE ; Start 03/12/17 at 02:31; Stop 03/12/17 at 02:32; Status DC Ondansetron HCl (Zofran Inj) 4 mg ONCE ONCE IVP Last administered on 03:28; Start 03/12/17 at 03:15; Stop 03/12/17 at 03:18; Status DC Sodium Chloride (NS Flush) 2 ml UNSCH PRN IVF FLUSH AFTER USING IV ACCESS; Start 03/12/17 at 03:15; Stop 03/12/17 at 04:58; Status DC Hydromorphone HCl (Dilaudid Pf Inj) 0.5 mg ONCE ONCE IVS Last administered on 03/12/17 03:29; Start 03/12/17 at 03:15; Stop 03/12/17 at 03:18; Status DC Hydromorphone HCl (Dilaudid Pf Inj) 1 mg ONCE ONCE IV PUSH Last administered on 03/12/17 04:44; Start 03/12/17 at 04:30; Stop 03/12/17 at 04:31; Status DC Sodium Chloride (NS Flush) 2 ml UNSCH PRN IV FLUSH FLUSH AFTER USING IV ACCESS ; Start 03/12/17 at 05:00; Stop 03/16/17 at 15:53; Status DC Sodium Chloride (NS Flush) 2 ml BID IV FLUSH Last administered on 03/15/17 12: 25; Start 03/12/17 at 09:00; Stop 03/16/17 at 15:53; Status DC Ondansetron HCl (Zofran Inj) 4 mg Q6H PRN IVP NAUSEA OR VOMITING Last administered on 03/25/17 06:09; Start 03/12/17 at 05:00 Naloxone HCl (Narcan Inj) 0.4 mg UNSCH PRN IV SEE LABEL COMMENTS; Start at 05:00 Hydromorphone HCl (Dilaudid Pf Inj) 1 mg Q4H PRN IV PUSH pain >5 Last administered on 03/12/17 08:40; Start 03/12/17 at 05:00; Stop 03/12/17 at 11:46 ; Status DC Hydromorphone HCl (Dilaudid Pf Inj) 1 mg Q3H PRN IV PUSH BREAKTHROUGH PAIN Last administered on 03/16/17 09:35; Start 03/12/17 at 12:00; Stop 03/16/17 at 15:25; Status DC Dextrose (D50w (Vial) Inj) 50 ml UNSCH PRN IV HYPOGLYCEMIA-SEE COMMENTS; Start 03/12/17 at 12:00 Glucagon (Glucagon Inj) 1 mg UNSCH PRN OTHER HYPOGLYCEMIA-SEE COMMENTS; Start 03/12/17 at 12:00 Insulin Aspart (NovoLOG SUPPLEMENTAL SCALE) 1 ACHS SLIDING SCALE SQ Last administered on 03/25/17 06:49; Start 03/12/17 at 16:00 Clonidine (Catapres) 0.1 mg Q6H PRN PO SBP> OR = 180, DBP> OR = 100; Start at 12:45 Oxycodone/ Acetaminophen (Percocet 5-325 Mg) 1 tab STAT STAT PO Last administered on 03/12/17 15:40; Start 03/12/17 at 14:51; Stop 03/13/17 at 11:08 ; Status DC Oxycodone/ Acetaminophen (Percocet 5-325 Mg) 1 tab Q3H PRN PO PAIN 1-10 IF ABLE TO TAKE PO Last administered on 03/13/17 10:10; Start 03/12/17 at 18:00; Stop 03/13/17 at 11:09; Status DC Oxycodone HCl (Roxicodone) 10 mg Q4H PRN PO PAIN SCALE 8 TO 10 Last administered on 03/15/17 06:51; Start 03/13/17 at 11:15; Stop 03/15/17 at 06:55 ; Status DC Oxycodone HCl (Roxicodone) 5 mg Q4H PRN PO PAIN SCALE 2 TO 5; Start 03/13/17 at 11:15; Stop 03/22/17 at 10:26; Status DC Magnesium Hydroxide (Milk Of Magnesia Liq) 30 ml DAILY PRN PO CONSTIPATION Last administered on 03/25/17 02:37; Start 03/13/17 at 11:15 Polyethylene Glycol 17 gm 17 gm DAILY PO Last administered on 03/21/17 08:47; Start 03/14/17 at 09:00 Lactated Ringer's 1,000 ml @ 30 mls/hr Q24H PRN IV SEE LABEL COMMENTS; Start at 01:15; Stop 03/18/17 at 01:14; Status DC Sodium Chloride (NS 500 ml Inj) 500 ml @ 30 mls/hr [id number] PRN IV SEE LABEL COMMENTS; Start 03/15/17 at 01:15; Stop 03/18/17 at 01:14; Status DC Povidone Iodine (Betadine 5% Antisepsis Kit) 1 applic PIZZA BAKER PRN EACH NARE SEE LABEL COMMENTS; Start 03/15/17 at 01:15; Stop 03/18/17 at 01:14; Status DC Chlorhexidine Gluconate (Chlorhexidine 2% Cloth) 3 pack PIZZA BAKER PRN TOPICAL SEE LABEL COMMENTS; Start 03/15/17 at 01:15; Stop 03/18/17 at 01:14; Status DC Oxycodone HCl (Roxicodone) 15 mg Q4H PRN PO PAIN SCALE 6 TO 10 Last administered on 03/22/17 09:53; Start 03/15/17 at 07:15; Stop 03/22/17 at 10:24 ; Status DC Enoxaparin Sodium (Lovenox Inj) 30 mg ONCE ONCE SQ Last administered on 08:03; Start 03/15/17 at 07:00; Stop 03/15/17 at 07:01; Status DC Bisacodyl 10 mg 10 mg DAILY PRN RECTAL CONSTIPATION Last administered on 17:47; Start 03/15/17 at 16:15 Cefazolin Sodium/ Dextrose (Ancef 2 Gm Premix) 50 ml @ As Directed STK-MED ONCE .ROUTE Last administered on 03/16/17 13:32; Start 03/16/17 at 12:52; Stop at 12:53; Status DC Gentamicin Sulfate (Gentamicin Inj) 240 mg STK-MED ONCE .ROUTE Last administered on 03/16/17 13:43; Start 03/16/17 at 12:52; Stop 03/16/17 at 12:53 ; Status DC Vancomycin HCl 1000 mg 1,000 mg STK-MED ONCE .ROUTE Last administered on 13:32; Start 03/16/17 at 12:53; Stop 03/16/17 at 12:54; Status DC Sodium Chloride (NS 250 ml Inj) 250 ml @ As Directed STK-MED ONCE .ROUTE Last administered on 03/16/17 13:32; Start 03/16/17 at 12:54; Stop 03/16/17 at 12:55 ; Status DC Acetaminophen (Ofirmev Inj) 1,000 mg STK-MED ONCE IV ; Start 03/16/17 at 12:57; Stop 03/16/17 at 12:58; Status DC Midazolam HCl (Versed Inj) 2 mg STK-MED ONCE .ROUTE ; Start 03/16/17 at 12:58; Stop 03/16/17 at 12:59; Status DC Fentanyl Citrate (fentaNYL INJ) 250 mcg STK-MED ONCE .ROUTE ; Start 03/16/17 at 12:58; Stop 03/16/17 at 12:59; Status DC Famotidine (Pepcid Inj) 20 mg STK-MED ONCE .ROUTE ; Start 03/16/17 at 12:58; Stop 03/16/17 at 12:59; Status DC Dexamethasone Sodium Phosphate (Decadron Inj) 4 mg STK-MED ONCE .ROUTE ; Start 03/16/17 at 12:58; Stop 03/16/17 at 12:59; Status DC Hydromorphone HCl 2 mg 2 mg STK-MED ONCE .ROUTE ; Start 03/16/17 at 13:01; Stop 03/16/17 at 13:02; Status DC Lactated Ringer's (Lr 1000 ml Inj) 1,000 ml @ 80 mls/hr [id number] IV Last administered on 03/17/17 02:57; Start 03/16/17 at 15:21; Stop 03/18/17 at 10:41 ; Status DC IV Flush (NS Flush) 2 ml UNSCH PRN IVF FLUSH AFTER USING IV ACCESS; Start 03/16 at 15:30 IV Flush (NS Flush) 2 ml BID IVF Last administered on 03/20/17 07:42; Start at 21:00 Miscellaneous Information (Post-op Orders (for Pharmacy)) STAT ONCE XX ; Start 03/16/17 at 15:30; Stop 03/16/17 at 16:00; Status DC Enoxaparin Sodium 30 mg 30 mg Q24H SQ Last administered on 03/24/17 14:16; Start 03/17/17 at 15:00 Cefazolin Sodium/ Dextrose 50 ml @ 100 mls/hr Q8H IV Last administered on 03/18 12:46; Start 03/16/17 at 21:00; Stop 03/18/17 at 13:29; Status DC Vancomycin HCl/ Sodium Chloride (Vancomycin Inj/ NS 250 ml Inj) 250 ml @ 250 mls/hr Q12H IV ; Start 03/16/17 at 16:00; Stop 03/16/17 at 16:14; Status DC Miscellaneous Information UNSCH PRN XX SEE LABEL COMMENTS; Start 03/16/17 at 15:30 Miscellaneous Medication ([facility] [place] [facility] Information) ONCE ONCE XX ; Start at 15:30; Stop 03/16/17 at 15:59; Status DC Calcium/Vitamin D (Oscal-D 250-125) 250 mg TID PO Last administered on 09:11; Start 03/16/17 at 18:00 Diphenhydramine HCl (Benadryl) 25 mg Q6H PRN PO ITCHING; Start 03/16/17 at 15: 30 Cholecalciferol (Vitamin D3) 1,000 units DAILY PO Last administered on 09:11; Start 03/17/17 at 09:00 Ergocalciferol (Drisdol) 50,000 units Q7D PO Last administered on 03/23/17 15: 51; Start 03/16/17 at 16:00 Hydromorphone HCl (Dilaudid Pf Inj) 2 mg Q3H PRN IV PUSH BREAKTHROUGH PAIN Last administered on 03/18/17 08:55; Start 03/16/17 at 18:00; Stop 03/18/17 at 10:41; Status DC Bisacodyl (Dulcolax Supp) 10 mg DAILY PRN RECTAL CONSTIPATION; Start 03/16/17 at 15:45; Status Cancel Fentanyl Citrate (fentaNYL INJ) 250 mcg STK-MED ONCE .ROUTE ; Start 03/16/17 at 15:50; Stop 03/16/17 at 15:51; Status DC Morphine Sulfate (*morphine INJ PERIprocedure ONLY) 8 mg STK-MED ONCE .ROUTE Last administered on 03/16/17 15:55; Start 03/16/17 at 15:55; Stop 03/16/17 at 15:56; Status DC Morphine Sulfate 8 mg 8 mg STK-MED ONCE .ROUTE Last administered on 03/16/17 16:05; Start 03/16/17 at 16:05; Stop 03/16/17 at 16:06; Status DC Vancomycin HCl/ Sodium Chloride (Vancomycin Inj/ NS 250 ml Inj) 250 ml @ 250 mls/hr Q12H IV Last administered on 03/18/17 01:39; Start 03/17/17 at 01:00; Stop 03/18/17 at 01:59; Status DC Morphine Sulfate (*morphine INJ PERIprocedure ONLY) 8 mg STK-MED ONCE .ROUTE Last administered on 03/16/17 16:17; Start 03/16/17 at 16:17; Stop 03/16/17 at 16:18; Status DC Hydromorphone HCl (*DILAUDID PF INJ PERIprocedural ONLY) 1 mg STK-MED ONCE .ROUTE Last administered on 03/16/17 16:39; Start 03/16/17 at 16:39; Stop at 16:40; Status DC Cyclobenzaprine HCl (Flexeril) 10 mg Q8H PRN PO muscle spasm Last administered on 03/24/17 14:16; Start 03/18/17 at 15:00 Bacitracin (Baciguent Oint) 1 applic DAILY TOPICAL Last administered on 09:00; Start 03/19/17 at 09:00 Lisinopril (Prinivil) 10 mg DAILY PO Last administered on 03/24/17 08:36; Start 03/19/17 at 11:30 Metformin HCl (Glucophage) 850 mg DAILY PO Last administered on 03/24/17 08:34 ; Start 03/19/17 at 11:30; Status Hold Ibuprofen (Motrin) 600 mg Q8HR PO Last administered on 03/24/17 22:03; Start 03/21/17 at 14:00; Status Hold Oxycodone HCl (Roxicodone) 10 mg Q6HR PRN PO PAIN SCALE 6 TO 10 Last administered on 03/25/17 03:44; Start 03/22/17 at 12:00; Status Hold Oxycodone HCl (OxyCONTIN CR) 20 mg Q12HR PO Last administered on 03/24/17 20: 49; Start 03/22/17 at 11:00; Status Hold Oxycodone HCl (Roxicodone) 5 mg Q6HR PRN PO PAIN SCALE 2 TO 5 Last administered on 03/25/17 06:47; Start 03/22/17 at 12:00; Status Hold Oxycodone HCl (OxyCONTIN CR) 20 mg ONCE ONCE PO ; Start 03/22/17 at 12:30; Stop 03/22/17 at 12:31; Status DC Propofol (Diprivan 200 Mg/20 ml Inj) 400 mg STK-MED ONCE IV ; Start 03/16/17 at 14:58; Stop 03/24/17 at 14:59; Status DC Ephedrine Sulfate (ePHEDrine/NS 25 MG/5 ML SYR) 25 mg STK-MED ONCE IV ; Start at 14:58; Stop 03/24/17 at 14:59; Status DC Phenylephrine HCl (Neosynephrine/ NS 1000 Mcg/10ml Syr) 1,000 mcg STK-MED ONCE IV ; Start 03/16/17 at 14:58; Stop 03/24/17 at 14:59; Status DC Ondansetron HCl (Zofran Inj) 4 mg STK-MED ONCE IV PUSH ; Start 03/16/17 at 14:58 ; Stop 03/24/17 at 14:59; Status DC Pantoprazole Sodium (Protonix Inj) 40 mg ONCE ONCE IV PUSH Last administered on 03/25/17 06:07; Start 03/25/17 at 05:30; Stop 03/25/17 at 05:31; Status DC Pantoprazole Sodium (Protonix) 40 mg DAILY PO ; Start 03/25/17 at 09:00; Status Hold Morphine Sulfate (Morphine Inj) 2 mg Q3H PRN IV Pain 3-5; if unable to take PO ; Start 03/25/17 at 09:30 Morphine Sulfate (Morphine Inj) 4 mg Q3H PRN IV Pain 6-10;if unable to take PO Last administered on 03/26/17 09:57; Start 03/25/17 at 09:30 Naloxone HCl (Narcan Inj) 0.4 mg UNSCH PRN IV SEE LABEL COMMENTS; Start at 09:30 Hydromorphone HCl (Dilaudid Pf Inj) 1 mg ONCE ONCE IV PUSH Last administered on 03/25/17 09:30; Start 03/25/17 at 09:30; Stop 03/25/17 at 09:31; Status DC Iohexol 95 ml 95 ml STK-MED ONCE IV Last administered on 03/25/17 14:01; Start 03/25/17 at 14:01; Stop 03/25/17 at 14:02; Status DC Sodium Chloride 1,000 ml @ 84 mls/hr [id number] IV Last administered on 03/26/17 04:04; Start 03/25/17 at 16:00 Piperacillin Sod/ Tazobactam Sod (Zosyn 3.375 Gm Premix) 50 ml @ 100 mls/hr Q6H IV Last administered on 03/26/17 04:50; Start 03/25/17 at 17:00 A/P Assessment and Plan A/P acute cholecystitis- pain has improved surgery evaluation appreciated; cholecystectomy offered but the patient declined. start on clear liquid diet- continue with IV antibiotic and pain control. Right comminuted distal femur fracture and proximal tibia fracture with intra- articular involvement Orthopedic evaluated and patient underwent surgery on 03/16/17 with open reduction internal fixation of the right distal femur supracondylar intra- articular fracture - continue with pain control and rehab efforts. Diabetes: Chronic, stable. Accu checks AC/HS with low dose SSI. hold metformin . Anemia: stable H/H- will monitor periodically. Hypertension: controlled. Clonidine prn Continue Lisinopril 10 mg daily DVT prophylaxis: Swati Pérez Mohammadreza MD Mar 26, 2017 11:06
--- NOTE | 2017-03-26 17:34 | RADHPO ---
EXAM DATE/TIME: 03/26/2017 14:38 [place] COMPARISON: CT ABDOMEN W CONTRAST, March 25, 2017, 13:50. INDICATIONS : Right upper quadrant pain. DOSE: 4.1 mCi Tc99m Mebrofenin IV MEDICAL HISTORY : Diabetes mellitus type 2. Hypertension. SURGICAL HISTORY : Inguinal hernia repair. Right hip surgery and cervical spine surgery. ENCOUNTER: Initial ACUITY: 1 day PAIN SCALE: 2/10 LOCATION: Right upper quadrant TECHNIQUE: Following the intravenous administration of radiotracer, dynamic sequential images were performed wit h continuous acquisition. FINDINGS: HEPATIC KINETICS: There is prompt uptake of radiotracer in the liver. No focal defects are seen. There is normal rate of washout from the hepatic parenchyma. BILIARY CLEARANCE: Activity is first seen in the extrahepatic biliary system at 10 minutes. There is normal excretion i nto the small bowel. GALLBLADDER: Activity is not seen in the gallbladder at 2 hours. Common bile duct kinetics are normal and there is no evidence of biliary obstruction. BILIARY ENTRIC REFLUX: None observed. CONCLUSION: Nonvisualization of the gallbladder. Findings are suspicious for acute cholecystitis in the proper clinical setting. Oscar Boyd MD on March 26, 2017 at 17:30 Board Certified Radiologist. This report was verified electronically.
[2017-03-26 20:00] VITALS: BP 107/73; PULSE 93; RESP 20; TEMP 99.4; O2SAT 95
[2017-03-27] VITALS (7 sets, daily range): BP systolic 108–146; BP diastolic 66–75; PULSE 80–96; RESP 16–21; TEMP 96–98.7; O2SAT 92–98
[2017-03-27] MEDS: MORPHINE SULFATE 4 MG/ML INJ IV PRN ×6 (01:40→23:35)
[2017-03-27] MEDS: SODIUM CHLOR 0.9% 1000 ML INJ 1,000 ML IV SCH (01:40)
[2017-03-27] MEDS: PIPERACIL-TAZO 3.375 GM PREMIX 50 ML IV SCH ×4 (06:15→23:34)
[2017-03-27] MEDS: LISINOPRIL 10 MG TAB PO SCH (08:51)
[2017-03-27] MEDS: CHOLECALCIFEROL (VIT D3) 1000 UNIT TAB PO SCH (08:51)
[2017-03-27] MEDS: CALCIUM/VITAMIN D 250 MG/125 U TAB PO SCH ×3 (08:51→17:01)
[2017-03-27] MEDS: POLYETHYLENE GLYCOL 17 GM PKG PO SCH (08:52)
[2017-03-27] MEDS: SODIUM CHLORIDE 0.9% FLUSH 5 ML FLUSH IVF SCH ×2 (08:52→21:00)
[2017-03-27] MEDS: BACITRACIN TOP OINT 15 GM TUBE TOPICAL SCH (09:00)
[2017-03-27] MEDS ORDERED: BUPIVACAINE/EPINEPHRINE 0.25% PF 30 ML VIAL ONE (10:32)
[2017-03-27] MEDS: INSULIN ASPART SUPPLEMENTAL SCALE SQ SCH ×3 (11:00→21:56)
--- NOTE | 2017-03-27 11:44 | HHI.PR ---
cc: Horacio Garduno MD Immediate Post Op Note Procedure Date: Mar 27, 2017 Pre Op Diagnosis: Acute cholecystitis Post Op Diagnosis: Gangrenous cholecystitis Surgeon: Horacio Garduno [employer] Farmworker(s): Rick Andrade CST Procedure: Lap Cholecystectomy Complications: None Specimen(s) removed: Gallbladder and stones to pathology Estimated blood loss: 100 ml Anesthesia: General Drains: None IVF (800 ml) Patient to: PACU Patient Condition: Good Date/Time of Procedure: SEE SURGICAL CARE RECORD Horacio Garduno MD Mar 27, 2017 11:44
[2017-03-27] MEDS ORDERED: *MEPERIDINE 25 MG INJ VIAL PERIprocedural Use ONLY ONE (11:51)
[2017-03-27] MEDS ORDERED: MORPHINE SULFATE 8 MG/ML INJ ONE (12:15)
[2017-03-27] MEDS ORDERED: *Lactated Ringer's INJ 1,000 ML ONE (12:19)
[2017-03-27] MEDS ORDERED: KETOROLAC TROMETHAMINE 60 MG/2 ML (IM) VIAL IM ONE (13:03)
[2017-03-27] MEDS ORDERED: ONDANSETRON HCL 4 MG/2 ML VIAL IV PUSH ONE (13:03)
[2017-03-27] MEDS ORDERED: PROPOFOL 200 MG/20 ML AMP IV ONE (13:03)
--- NOTE | 2017-03-27 16:26 | HHI.PR ---
Subjective Remarks Follow-up for R femur and tibia fractures, cholecystitis. Patient was evaluated postoperatively this afternoon. He states his abdominal pain is currently controlled. Denies any fevers or chills. Objective Vitals Vital Signs Date Time Temp Pulse Resp B/P Pulse Ox O2 Delivery O2 Flow Rate FiO2 03/27/17 13:08 96.7 80 18 115/66 92 03/27/17 12:45 98.3 86 16 93/67 96 Nasal Cannula 2 03/27/17 12:45 86 03/27/17 12:30 84 16 108/62 96 Nasal Cannula 2 03/27/17 12:15 85 16 92/53 95 Nasal Cannula 2 03/27/17 12:00 87 16 111/58 98 Nasal Cannula 2 03/27/17 11:50 98.1 96 16 119/54 94 Nasal Cannula 2 03/27/17 11:50 96 03/27/17 09:30 97.6 90 16 130/75 97 03/27/17 08:00 97.5 83 18 108/70 97 03/27/17 06:00 96.0 90 16 130/75 97 03/26/17 20:00 99.4 93 20 107/73 95 03/26/17 17:24 18 I/O 03/26/17 03/26/17 03/26/17 03/27/17 03/27/17 03/27/17 07:00 15:00 23:00 07:00 15:00 23:00 Intake Total 480 ml 610 ml 0 ml 1250 ml Output Total 400 ml 550 ml 350 ml 250 ml Balance 80 ml 60 ml -350 ml 1000 ml Intake Oral 480 ml 50 ml 0 ml 0 ml IV Total 560 ml Other 1250 ml Output Urine Total 400 ml 550 ml 350 ml 150 ml Estimated Blood Loss 100 ml # Voids 0 # Bowel Movements 0 0 0 Result Diagram: 03/25/17 1020 03/25/17 1020 Objective Remarks GENERAL: Well-nourished well developed male in no apparent distress. SKIN: Warm and dry. CARDIOVASCULAR: Regular rate and rhythm. RESPIRATORY: No accessory muscle use. Clear to auscultation. Breath sounds equal bilaterally. GASTROINTESTINAL: Abdomen soft, nontender, nondistended. MUSCULOSKELETAL: R knee with BELKIS wrap immobilized in CKS; right lower leg and foot swollen. 2+ R DP pulse. NEUROLOGICAL: Awake and alert. Normal speech. PSYCHIATRIC: Appropriate mood and affect; insight and judgment normal. Procedures Open reduction internal fixation right distal femur supracondylar intra- articular fracture 03/16/17 Urinary Catheter: No Vascular Central Line Catheter: No A/P Problem List: (1) Femur fracture ICD Code: S72.90XA Status: Acute (2) Diabetes ICD Code: E11.9 Status: Chronic (3) Leukocytosis ICD Code: D72.829 Status: Acute Assessment and Plan Acute cholecystitis: -Confirmed with HIDA scan yesterday -S/p cholecystectomy today. OP note indicate gangrenous cholecystitis. -Morphine prn pain -Clear liquid diet per general surgeon Right comminuted distal femur fracture and proximal tibia fracture with intra- articular involvement Orthopedic evaluated and patient underwent surgery on 03/16/17 with open reduction internal fixation of the right distal femur supracondylar intra- articular fracture Physical therapy recommendations indicate nonweightbearing right lower extremity Immobilizer at all times except for passive range of motion of knee 0-90. No active leg lifts or quad sets Daily dressing changes Pain control. PO meds currently on hold. Advised to ice and elevate R leg to reduce swelling History of right total hip dislocation: Stable Continue physical therapy Diabetes: Chronic, stable. A1c 5.9 Accu checks AC/HS with low dose SSI. Resume metformin tomorrow morning. Leukocytosis, likely reactive: Resolved Continue to monitor CBC periodically Anemia: Stable. Likely attributed to acute trauma. -Monitor to monitor CBC periodically. Hypertension: Resolved. Clonidine prn Continue Lisinopril 10 mg daily DVT prophylaxis: SCDs, Lovenox Problem Qualifiers (1) Femur fracture: Qualified Code: S72.351A - Closed displaced comminuted fracture of shaft of right femur, initial encounter (2) Diabetes: Qualified Code: E11.9 - Type 2 diabetes mellitus without complication, without long-term current use of insulin (3) Leukocytosis: Qualified Code: D72.829 - Leukocytosis, unspecified type Shwetha Brock Mar 27, 2017 16:26
[2017-03-28] MEDS: SODIUM CHLOR 0.9% 1000 ML INJ 1,000 ML IV SCH ×2 (00:37→08:37)
[2017-03-28] MEDS: MORPHINE SULFATE 4 MG/ML INJ IV PRN ×3 (02:52→11:24)
[2017-03-28] MEDS: PIPERACIL-TAZO 3.375 GM PREMIX 50 ML IV SCH ×2 (06:26→11:28)
[2017-03-28 08:00] VITALS: BP 118/68; PULSE 94; RESP 18; TEMP 99.7; O2SAT 94
[2017-03-28] MEDS: INSULIN ASPART SUPPLEMENTAL SCALE SQ SCH ×4 (08:50→21:00)
[2017-03-28] MEDS: SODIUM CHLORIDE 0.9% FLUSH 5 ML FLUSH IVF SCH ×2 (09:00→21:00)
[2017-03-28] MEDS: CHOLECALCIFEROL (VIT D3) 1000 UNIT TAB PO SCH (09:59)
[2017-03-28] MEDS: CALCIUM/VITAMIN D 250 MG/125 U TAB PO SCH ×3 (09:59→17:36)
[2017-03-28] MEDS: POLYETHYLENE GLYCOL 17 GM PKG PO SCH (09:59)
[2017-03-28] MEDS: metFORMIN HCL 850 MG TAB PO SCH (09:59)
[2017-03-28] MEDS: BACITRACIN TOP OINT 15 GM TUBE TOPICAL SCH (10:04)
--- NOTE | 2017-03-28 10:26 | HHI.PR ---
Subjective Remarks Follow-up for R femur and tibia fractures, cholecystitis status post cholecystectomy yesterday. Patient admits to abdominal pain pointing to RLQ stating the morphine is not helping. He has not had a bowel movement in 2-3 days but attributes it to not eating for a couple of days. He does admit to having flatus. He denies any vomiting. Objective Vitals Vital Signs Date Time Temp Pulse Resp B/P Pulse Ox O2 Delivery O2 Flow Rate FiO2 03/27/17 20:00 98.7 85 21 146/75 98 03/27/17 13:08 96.7 80 18 115/66 92 03/27/17 12:45 98.3 86 16 93/67 96 Nasal Cannula 2 03/27/17 12:45 86 03/27/17 12:30 84 16 108/62 96 Nasal Cannula 2 03/27/17 12:15 85 16 92/53 95 Nasal Cannula 2 03/27/17 12:00 87 16 111/58 98 Nasal Cannula 2 03/27/17 11:50 98.1 96 16 119/54 94 Nasal Cannula 2 03/27/17 11:50 96 I/O 03/27/17 03/27/17 03/27/17 03/28/17 03/28/17 03/28/17 07:00 15:00 23:00 07:00 15:00 23:00 Intake Total 0 ml 1250 ml 1080 ml 120 ml Output Total 350 ml 250 ml 300 ml 900 ml 300 ml Balance -350 ml 1000 ml 780 ml -780 ml -300 ml Intake Oral 0 ml 0 ml 1080 ml 120 ml Other 1250 ml Output Urine Total 350 ml 150 ml 300 ml 900 ml 300 ml Estimated Blood Loss 100 ml # Voids 0 3 # Bowel Movements 0 Result Diagram: 03/25/17 1020 03/25/17 1020 Objective Remarks GENERAL: Well-nourished well developed male in no apparent distress. SKIN: Warm and dry. 3 paper-taped laparoscopic sites to R abdomen and one site noted to umbilicus. No surrounding erythema noted. CARDIOVASCULAR: Regular rate and rhythm. RESPIRATORY: No accessory muscle use. Clear to auscultation. Breath sounds equal bilaterally. GASTROINTESTINAL: Normoactive bowel sounds in all 4 quadrants. Abdomen soft, nondistended. No significant tenderness noted. MUSCULOSKELETAL: R knee with BELKIS wrap; right lower leg and foot swollen. 2+ R DP pulse. NEUROLOGICAL: Awake and alert. Normal speech. PSYCHIATRIC: Appropriate mood and affect. Procedures Open reduction internal fixation right distal femur supracondylar intra- articular fracture 03/16/17 Urinary Catheter: No Vascular Central Line Catheter: No A/P Problem List: (1) Femur fracture ICD Code: S72.90XA Status: Acute (2) Diabetes ICD Code: E11.9 Status: Chronic (3) Leukocytosis ICD Code: D72.829 Status: Acute Assessment and Plan Acute cholecystitis: -Confirmed with CT and HIDA scan -S/p cholecystectomy 03/27/17. OP note indicate gangrenous cholecystitis. -Per gen surg advance diet to 1999 ADA today. -Discontinue IVF. -Discontinue Zosyn. -Patient requests Dilaudid stating morphine is not helping still admitting to significant abdominal pain inconsistent with exam; Patient should have less pain now that gallbladder has been removed. INKER MACHINE tells me that patient asks for morphine to be pushed faster when administered. Discussed with Dr. Hyde who advises restarting oral narcotics with morphine only for breakthrough. Will hold off on restarting sustained release oxycodone. Right comminuted distal femur fracture and proximal tibia fracture with intra- articular involvement Orthopedic evaluated and patient underwent surgery on 03/16/17 with open reduction internal fixation of the right distal femur supracondylar intra- articular fracture Physical therapy recommendations indicate nonweightbearing right lower extremity Immobilizer at all times except for passive range of motion of knee 0-90. No active leg lifts or quad sets Daily dressing changes Pain control. Advised to ice and elevate R leg to reduce swelling History of right total hip dislocation: Stable Continue physical therapy Diabetes: Chronic, stable. A1c 5.9 Accu checks AC/HS with low dose SSI. Resume metformin this morning. Leukocytosis, likely reactive: Resolved Continue to monitor CBC periodically Anemia: Stable. Likely attributed to acute trauma. -Monitor CBC periodically. Hypertension: Resolved. Clonidine prn Continue Lisinopril 10 mg daily GI prophylaxis: po Protonix, bowel regimen. DVT prophylaxis: SCDs, Resume Lovenox today. Problem Qualifiers (1) Femur fracture: Qualified Code: S72.351A - Closed displaced comminuted fracture of shaft of right femur, initial encounter (2) Diabetes: Qualified Code: E11.9 - Type 2 diabetes mellitus without complication, without long-term current use of insulin (3) Leukocytosis: Qualified Code: D72.829 - Leukocytosis, unspecified type Shwetha Brock Mar 28, 2017 10:26
[2017-03-28] MEDS: LISINOPRIL 10 MG TAB PO SCH (10:29)
[2017-03-28] MEDS ORDERED: MORPHINE SULFATE 4 MG/ML INJ IV PRN (15:00)
[2017-03-28] MEDS: ENOXAPARIN SODIUM 30 MG/0.3 ML SYRINGE SQ SCH (15:31)
[2017-03-28 20:00] VITALS: BP 120/67; PULSE 100; RESP 19; TEMP 100.2; O2SAT 95
[2017-03-28 22:34] VITALS: TEMP 100.6
[2017-03-28] MEDS: ACETAMINOPHEN 325 MG TAB PO PRN (23:35)
[2017-03-29] MEDS: INSULIN ASPART SUPPLEMENTAL SCALE SQ SCH ×4 (07:00→21:00)
[2017-03-29] MEDS: POLYETHYLENE GLYCOL 17 GM PKG PO SCH (08:15)
[2017-03-29] MEDS: LISINOPRIL 10 MG TAB PO SCH (08:16)
[2017-03-29] MEDS: metFORMIN HCL 850 MG TAB PO SCH (08:16)
[2017-03-29] MEDS: CHOLECALCIFEROL (VIT D3) 1000 UNIT TAB PO SCH (08:16)
[2017-03-29] MEDS: CALCIUM/VITAMIN D 250 MG/125 U TAB PO SCH ×3 (08:16→17:01)
[2017-03-29] MEDS: SODIUM CHLORIDE 0.9% FLUSH 5 ML FLUSH IVF SCH ×2 (08:17→21:00)
[2017-03-29] MEDS: BACITRACIN TOP OINT 15 GM TUBE TOPICAL SCH (08:17)
[2017-03-29 09:01] VITALS: BP 119/69; PULSE 100; RESP 19; TEMP 99.3; O2SAT 100
[2017-03-29] MEDS: CYCLOBENZAPRINE HCL 10 MG TAB PO PRN ×2 (10:08→21:14)
[2017-03-29] MEDS: PANTOPRAZOLE SOD 40 MG DELAYED RELEASE TAB PO SCH (10:08)
--- NOTE | 2017-03-29 10:51 | HHI.PR ---
Subjective Remarks Follow-up for R femur and tibia fractures and status post cholecystectomy 03/27. Patient admits to 7/10 right lower quadrant pain. He admits to flatus and feels like he may have a bowel movement today. He does admit to fever last night. Patient did have a temp of 100.6 at that time. Objective Vitals Vital Signs Date Time Temp Pulse Resp B/P Pulse Ox O2 Delivery O2 Flow Rate FiO2 03/29/17 09:01 99.3 100 19 119/69 100 03/28/17 22:34 100.6 03/28/17 20:00 100.2 100 19 120/67 95 03/28/17 18:37 18 03/28/17 11:42 18 I/O 03/28/17 03/28/17 03/28/17 03/29/17 03/29/17 03/29/17 07:00 15:00 23:00 07:00 15:00 23:00 Intake Total 120 ml 440 ml 295 ml 540 ml Output Total 900 ml 400 ml 400 ml 1825 ml Balance -780 ml 40 ml -105 ml -1285 ml Intake Oral 120 ml 440 ml 240 ml 540 ml IV Total 55 ml Output Urine Total 900 ml 400 ml 400 ml 1825 ml Stool Total 0 ml Result Diagram: 03/25/17 1020 03/25/17 1020 Objective Remarks GENERAL: Well-nourished well developed male in no apparent distress. CARDIOVASCULAR: Regular rate and rhythm. RESPIRATORY: No accessory muscle use. Clear to auscultation. Breath sounds equal bilaterally. GASTROINTESTINAL: Normoactive bowel sounds. Abdomen soft, nondistended. Tender RLQ. No guarding. MUSCULOSKELETAL: RLE with CKS. R foot appears more edematous today. Normal capillary refill in toes of R foot. NEUROLOGICAL: Awake and alert. Normal speech. PSYCHIATRIC: Appropriate mood and affect. Procedures Open reduction internal fixation right distal femur supracondylar intra- articular fracture 03/16/17 Urinary Catheter: No Vascular Central Line Catheter: No A/P Problem List: (1) Femur fracture ICD Code: S72.90XA Status: Acute (2) Diabetes ICD Code: E11.9 Status: Chronic (3) Leukocytosis ICD Code: D72.829 Status: Acute (4) Fever ICD Code: R50.9 Status: Acute (5) DVT of lower extremity (deep venous thrombosis) ICD Code: I82.409 Status: Acute Assessment and Plan DVT RLE: Acute. Patient has had increased swelling in his right lower extremity. Doppler US indicates normal compressibility of the proximal deep venous system, but there is nonocclusive thrombus of the peroneal vein below the knee. Patient denies history of DVT in this leg in the past. He had been off Lovenox for a few days due to recent abdominal surgery. -Discussed with Dr. Hyde. Also discussed with david Rivas, who is agreeable to us starting Xarelto. Patient to start on Xarelto 15 mg po bid tonight. Fever: Acute. Multiple fevers of 100.6 since last night. Likely attributed to DVT. CBC with normal WBC count. Hypokalemia: Acute. Mild 3.4. -20 mEqpo KCl ordered. -Recheck am BMP, Mg level. Acute cholecystitis: -Confirmed with CT and HIDA scan -S/p cholecystectomy 03/27/17. OP note indicate gangrenous cholecystitis. -Per gen surg advance diet to 1999 ADA today. -Zosyn discontinued. -IVF discontinued -Pain control. -03/29: AST and Alkaline phosphatase mildly elevated, likely attributed to recent cholecystectomy. Right comminuted distal femur fracture and proximal tibia fracture with intra- articular involvement Orthopedic evaluated and patient underwent surgery on 03/16/17 with open reduction internal fixation of the right distal femur supracondylar intra- articular fracture Physical therapy recommendations indicate nonweightbearing right lower extremity Immobilizer at all times except for passive range of motion of knee 0-90. No active leg lifts or quad sets Daily dressing changes Pain control: Oxycodone prn q6h. Restart Oxycontin q12h tonight. Advised to ice and elevate R leg to reduce swelling 03/29: Ortho ordered new x-rays today. david Rivas, to come and evaluate patient tomorrow or Wednesday. History of right total hip dislocation: Chronic, stable Continue physical therapy Diabetes: Chronic, stable. A1c 5.9 Accu checks AC/HS with low dose SSI. BGLs well controlled. Has not required any insulin today. Metformin Leukocytosis, likely reactive: Resolved Continue to monitor CBC periodically Anemia: Likely attributed to acute trauma. Worse today at 9.7, could be attributed to acute illness. -Monitor CBC periodically. Hypertension: Resolved. Clonidine prn Continue Lisinopril 10 mg daily GI prophylaxis: po Protonix, bowel regimen. DVT prophylaxis: SCDs. Discontinue Lovenox as patient starting on Xarelto tonight. Problem Qualifiers (1) Femur fracture: Qualified Code: S72.351A - Closed displaced comminuted fracture of shaft of right femur, initial encounter (2) Diabetes: Qualified Code: E11.9 - Type 2 diabetes mellitus without complication, without long-term current use of insulin (3) Leukocytosis: Qualified Code: D72.829 - Leukocytosis, unspecified type (4) DVT of lower extremity (deep venous thrombosis): Shwetha Brock Mar 29, 2017 10:51
--- NOTE | 2017-03-29 10:51 | RADHPO ---
EXAM DATE/TIME: 03/29/2017 09:26 [facility] COMPARISON: KNEE RIGHT LTD (1 OR 2 VWS), March 12, 2017, 2:18. INDICATIONS : Right knee pain, MEDICAL HISTORY : None. SURGICAL HISTORY : Right total hip placement, Right femur plate ENCOUNTER: Subsequent ACUITY: 2 weeks PAIN SCORE: 5/10 LOCATION: Right distal femur FINDINGS: Alignment is anatomic distal femur with plate and screws in good position. CONCLUSION: Anatomic alignment. Zachariah Hernandez MD FACR on March 29, 2017 at 10:22 Board Certified Radiologist. This report was verified electronically.
[2017-03-29 11:47] LABS: AUTOMATED NEUTROPHIL # 8.3 TH/MM3 (1.8-7.7); BASOPHIL % 0.3 % (0.0-2.0); EOSINOPHIL # 0.5 TH/MM3 (0-0.4); EOSINOPHIL % 4.6 % (0.0-4.0); HEMATOCRIT 28.9 % (39.0-51.0); LYMPH % 8.7 % (9.0-44.0); LYMPHOCYTE # 0.9 TH/MM3 (1.0-4.8); MEAN CELL VOLUME 92.6 FL (80.0-100.0); MEAN CORPUSCULAR HEMOGLOBIN 31.1 PG (27.0-34.0); MEAN CORPUSCULAR HGB CONC 33.5 % (32.0-36.0); MONO % 8.3 % (0.0-8.0); NEUT % 78.1 % (16.0-70.0); PLATELET COUNT 387 TH/MM3 (150-450); RED BLOOD COUNT 3.13 MIL/MM3 (4.50-5.90); RED CELL DISTRIBUTION WIDTH 12.1 % (11.6-17.2); WHITE BLOOD COUNT 10.6 TH/MM3 (4.0-11.0)
[2017-03-29 11:48] LABS: HEMO FLAGS DIFF FINAL
[2017-03-29 12:01] LABS: CHLORIDE 97 MEQ/L (98-107); POTASSIUM 3.4 MEQ/L (3.5-5.1); SODIUM (NA) 135 MEQ/L (136-145)
[2017-03-29 12:05] LABS: ANION GAP 8 MEQ/L (5-15); BICARBONATE 30.2 MEQ/L (21.0-32.0)
[2017-03-29 12:06] LABS: BLOOD UREA NITROGEN 4 MG/DL (7-18)
[2017-03-29 12:08] LABS: ALT (GPT) 53 U/L (12-78); AST (GOT) 42 U/L (15-37)
[2017-03-29 12:09] LABS: GLOMERULAR FILTRATION RATE 127 ML/MIN (>89)
[2017-03-29 12:10] LABS: TOTAL BILIRUBIN ADULT 0.9 MG/DL (0.2-1.0)
[2017-03-29 12:11] LABS: ALKALINE PHOSPHATASE 140 U/L (45-117)
--- NOTE | 2017-03-29 12:28 | HHI.PR ---
Subjective Subjective Notes Resting in bed MADINA Mcgill at bedside Patient reports he is able to tolerate regular diet and had minimal abdominal pain Objective Vitals/I&O Vital Signs Date Time Temp Pulse Resp B/P Pulse Ox O2 Delivery O2 Flow Rate FiO2 03/29/17 12:19 18 03/29/17 09:01 99.3 100 119/69 100 03/27/17 12:45 Nasal Cannula 2 Labs Laboratory Tests Test 03/29/17 11:10 White Blood Count 10.6 Red Blood Count 3.13 Hemoglobin 9.7 Hematocrit 28.9 Mean Corpuscular Volume 92.6 Mean Corpuscular Hemoglobin 31.1 Mean Corpuscular Hemoglobin 33.5 Concent Red Cell Distribution Width 12.1 Platelet Count 387 Mean Platelet Volume 8.0 Neutrophils (%) (Auto) 78.1 Lymphocytes (%) (Auto) 8.7 Monocytes (%) (Auto) 8.3 Eosinophils (%) (Auto) 4.6 Basophils (%) (Auto) 0.3 Neutrophils # (Auto) 8.3 Lymphocytes # (Auto) 0.9 Monocytes # (Auto) 0.9 Eosinophils # (Auto) 0.5 Basophils # (Auto) 0.0 CBC Comment DIFF FINAL Differential Comment Sodium Level 135 Potassium Level 3.4 Chloride Level 97 Carbon Dioxide Level 30.2 Anion Gap 8 Blood Urea Nitrogen 4 Creatinine 0.64 Estimat Glomerular Filtration 127 Rate Random Glucose 158 Calcium Level 8.5 Total Bilirubin 0.9 Aspartate Amino Transf 42 (AST/SGOT) Alanine Aminotransferase 53 (ALT/SGPT) Alkaline Phosphatase 140 Total Protein 6.8 Albumin 2.4 Cardiovascular: Regular Lungs: Clear Abdomen: Other (soft; lap sites c/d/i ), Post-op tenderness Extremities: Other (RIGHT LE orthopedic injuries ) A/P Assessment and Plan 62 year old male POD2 lap brendan; also s/p RIGHT femur repair by Dr. Sanchez -Tolerating regular diet -Pain control -OOB and mobilize as tolerated and weight bearing status per Orthopedics -PT following -General Surgery will sign off; please call with ??s -Discussed with Dr. Garduno Attending Note - Dr. Garduno Abdomen soft with minimal postop pain The exam, history, and the medical decision-making described in the above note were completed with the assistance of the mid-level provider. I reviewed and agree with the findings presented. I attest that I had a [id number] encounter with the patient on the same day, and personally performed and documented my assessment and findings in the medical record. Shwetha Rangel Mar 29, 2017 12:28 Horacio Garduno MD Apr 03, 2017 14:56
[2017-03-29] MEDS: ENOXAPARIN SODIUM 30 MG/0.3 ML SYRINGE SQ SCH (13:37)
--- NOTE | 2017-03-29 14:34 | RADHPO ---
EXAM DATE/TIME: 03/29/2017 14:00 [facility] COMPARISON: No previous studies available for comparison. INDICATIONS : Right leg swelling. MEDICAL HISTORY : Arthritis. Tympanostomy tube. Gout. Joint pain. Endocrine diorders. Diabetes. SURGICAL HISTORY : Right hip replacement. ENCOUNTER: Initial ACUITY: 1 day PAIN SCORE: 4/10 LOCATION: Right leg. TECHNIQUE: Venous ultrasound of the leg was performed from the inguinal ligament to the proximal calf. Real-yamil e, color Doppler and spectral tracing, compression and augmentation techniques were used. FINDINGS: There is normal compressibility of the deep venous system from the inguinal region to the proximal ca lf. No echogenic clot is seen in the lumen of the common femoral, femoral, popliteal, and posterior tibial veins. There is nonocclusive thrombus in the peroneal vein. There is a normal response of the venous system to proximal and distal augmentation and respiration. CONCLUSION: Nonocclusive thrombus peroneal vein below the knee. Zachariah Hernandez MD FACR on March 29, 2017 at 14:32 Board Certified Radiologist. This report was verified electronically.
[2017-03-29] MEDS: ACETAMINOPHEN 325 MG TAB PO PRN (14:59)
[2017-03-29 15:12] VITALS: TEMP 100.1
--- NOTE | 2017-03-29 15:18 | RADHPO ---
EXAM DATE/TIME: 03/29/2017 09:26 [facility] COMPARISON: FEMUR RIGHT (AP & LAT/2VWS), March 16, 2017, 15:08. INDICATIONS : Right Femur pain MEDICAL HISTORY : None. SURGICAL HISTORY : Right total hip, Right femoral plate and screws ENCOUNTER: Subsequent ACUITY: 2 weeks PAIN SCORE: 8/10 LOCATION: Right femur FINDINGS: Plate with screws is seen bridging the fracture of the distal femur. Alignment is reasonably anatomic . CONCLUSION: Plate with screws bridging distal femur fracture. Zachariah Hernandez MD FACR on March 29, 2017 at 10:22 Board Certified Radiologist. This report was verified electronically.
[2017-03-29 15:51] VITALS: TEMP 100.6
[2017-03-29] MEDS ORDERED: POTASSIUM CHLORIDE 20 MEQ CONTROLLED RELEASE TAB PO ONE (16:30)
[2017-03-29 17:05] VITALS: TEMP 99.5
[2017-03-29 20:00] VITALS: BP 104/64; PULSE 90; RESP 16; TEMP 98.3; O2SAT 93
[2017-03-29] MEDS: RIVAROXABAN 15 MG TAB PO SCH (21:13)
[2017-03-29] MEDS: oxyCODONE HCL 20 MG CONTROLLED RELEASE TAB PO SCH (21:14)
[2017-03-30 05:22] LABS: POTASSIUM 3.8 MEQ/L (3.5-5.1)
[2017-03-30 05:29] LABS: MAGNESIUM 2.1 MG/DL (1.5-2.5)
[2017-03-30] MEDS: INSULIN ASPART SUPPLEMENTAL SCALE SQ SCH ×4 (07:00→20:48)
[2017-03-30 08:00] VITALS: BP 114/71; PULSE 82; RESP 18; TEMP 98.8; O2SAT 92
[2017-03-30] MEDS: LISINOPRIL 10 MG TAB PO SCH (08:46)
[2017-03-30] MEDS: CALCIUM/VITAMIN D 250 MG/125 U TAB PO SCH ×3 (08:46→18:25)
[2017-03-30] MEDS: PANTOPRAZOLE SOD 40 MG DELAYED RELEASE TAB PO SCH (08:46)
[2017-03-30] MEDS: metFORMIN HCL 850 MG TAB PO SCH (08:46)
[2017-03-30] MEDS: CHOLECALCIFEROL (VIT D3) 1000 UNIT TAB PO SCH (08:46)
[2017-03-30] MEDS: POLYETHYLENE GLYCOL 17 GM PKG PO SCH (08:46)
[2017-03-30] MEDS: RIVAROXABAN 15 MG TAB PO SCH ×2 (08:46→20:48)
[2017-03-30] MEDS: oxyCODONE HCL 20 MG CONTROLLED RELEASE TAB PO SCH ×2 (08:47→20:48)
[2017-03-30] MEDS: BACITRACIN TOP OINT 15 GM TUBE TOPICAL SCH (08:48)
[2017-03-30] MEDS: SODIUM CHLORIDE 0.9% FLUSH 5 ML FLUSH IVF SCH (08:48)
[2017-03-30] MEDS ORDERED: ONDANSETRON ODT 4 MG TAB PO PRN (13:30)
--- NOTE | 2017-03-30 13:34 | HHI.PR ---
Subjective Remarks Patient seen and examined today in follow-up for right femur/right tibia fracture, cholecystitis. Patient sitting in bed resting comfortably. Indicates still has some mild soreness around his umbilical area. States that pain is improving on a daily basis. Objective Vitals Vital Signs Date Time Temp Pulse Resp B/P Pulse Ox O2 Delivery O2 Flow Rate FiO2 03/30/17 08:00 98.8 82 18 114/71 92 03/29/17 20:00 98.3 90 16 104/64 93 03/29/17 18:03 16 03/29/17 17:05 99.5 03/29/17 16:04 18 03/29/17 15:51 100.6 03/29/17 15:12 100.1 I/O 03/29/17 03/29/17 03/29/17 03/30/17 03/30/17 03/30/17 07:00 15:00 23:00 07:00 15:00 23:00 Intake Total 540 ml 300 ml 480 ml 560 ml Output Total 1825 ml 700 ml 1100 ml 500 ml Balance -1285 ml -400 ml -620 ml 60 ml Intake Oral 540 ml 300 ml 480 ml 560 ml Output Urine Total 1825 ml 700 ml 1100 ml 500 ml # Voids 2 # Bowel Movements 0 0 Result Diagram: 03/29/17 1110 03/30/17 0450 Objective Remarks GENERAL: Well-developed, well-nourished, in no acute distress. alert and orientated HEENT: Head is normocephalic without any lesions or masses noted. Facial features are symmetric. Eyes: Extraocular muscles are intact. Conjunctivae were clear. NECK: Supple without any masses. Trachea midline no deviation. No JVD, CARDIAC: Regular rhythm, regular rate. S1/S2 are heard. No murmurs gallops or rubs. LUNGS: Clear to auscultation bilaterally. No wheeze, rhonchi or rales. No use of accessory muscles on inspiration or expiration. ABDOMEN: Soft, nontender. Nondistended. Bowel sounds heard in all 4 quadrants. No organomegaly or masses. Negative rebound, negative guarding EXTREMITIES: No edema, pulses are equal bilaterally. No cyanosis or clubbing NEUROLOGY: Mood and affect appear appropriate. Cranial nerves II through XII grossly intact. Moving all extremities, speech is clear Procedures Open reduction internal fixation right distal femur supracondylar intra- articular fracture 03/16/17 Urinary Catheter: No Vascular Central Line Catheter: No A/P Assessment and Plan Acute cholecystitis: Resolved Confirmed with CT and HIDA scan Surgery consulted and S/p cholecystectomy 03/27/17. Neurosurgery has signed off DVT of the right lower extremity in the peroneal vein. Continue Xarelto Right comminuted distal femur fracture and proximal tibia fracture with intra- articular involvement Orthopedic evaluated and patient underwent surgery on 03/16/17 with open reduction internal fixation of the right distal femur supracondylar intra- articular fracture Physical therapy recommendations indicate nonweightbearing right lower extremity Immobilizer at all times except for passive range of motion of [id number] 90. No active leg lifts or quad sets Repeat imaging requested by orthopedic for further evaluation Daily dressing changes Pain control, patient still with postsurgical pain. Will adjust medications when appropriate Oxycodone 5 mg every 6 hours as needed for pain to5 Oxycodone 10 mg every 6 hours as needed for pain 610 Oxycodone SR 20 mg every 12 hours Ibuprofen 600 mg 3 times daily History of Right total hip dislocation-stable Continue physical therapy Diabetes, chronic, A1c 5.9 Accu checks AC/HS with low dose SSI. Patient has not required any insulin in 2 days. If doesn't require insulin while discontinue Accu-Cheks with sliding scale insulin Continue Glucophage 850 mg daily Leukocytosis, likely reactive, resolved Continue monitor CBC periodically Hypertension, improved Clonidine PRN Continue lisinopril 10 mg daily DVT prophylaxis: ANAs, Andrearelto Discharge Planning Discharge per case management Warner Miller Mar 30, 2017 13:34
--- NOTE | 2017-03-30 13:35 | PD.ORT.PN ---
Subjective Subjective Remarks 2 weeks post op ORIF right distal femur fx s/p right tibial plateau fx - nonop s/p chronic right hip dislocation doing well. pain controlled. working with therapy. states improving. Objective Vitals Vital Signs Date Time Temp Pulse Resp B/P Pulse Ox O2 Delivery O2 Flow Rate FiO2 03/30/17 08:00 98.8 82 18 114/71 92 03/29/17 20:00 98.3 90 16 104/64 93 03/29/17 18:03 16 03/29/17 17:05 99.5 03/29/17 16:04 18 03/29/17 15:51 100.6 03/29/17 15:12 100.1 I/O 03/29/17 03/29/17 03/29/17 03/30/17 03/30/17 03/30/17 07:00 15:00 23:00 07:00 15:00 23:00 Intake Total 540 ml 300 ml 480 ml 560 ml Output Total 1825 ml 700 ml 1100 ml 500 ml Balance -1285 ml -400 ml -620 ml 60 ml Intake Oral 540 ml 300 ml 480 ml 560 ml Output Urine Total 1825 ml 700 ml 1100 ml 500 ml # Voids 2 # Bowel Movements 0 0 Result Diagram: 03/29/17 1110 03/30/17 0450 Objective Remarks Right lower extremity: Knee immobilizer in place with clean dressings intact. incision visualized. clean and dry. intact and healed well. no erythema or drainage. +homans sign. good dorsiflexion of ankle with full sensation distally Assessment & Plan Assessment and Plan 1) Right Distal Femur Fx ORIF - 2 weeks post op 2) Right Tibial plateau fx nonoperative 3) Right Total hip dislocation - history 4) DVT right leg Nonweightbearing right lower extremity immobilizer on at all times except for passive range of motion of knee 0-90. No active leglifts or quad sets Daily dressing changes Case management for rehabilitation placement DVT prophylaxis per medical team Ortho cleared for discharge to rehabilitation when bed available Follow-up with Dr. Rhodes or [place] in 1 month DC viktoriya right leg today. keep covered and dry x 3 days, then open to air. Carlos Diamond Mar 30, 2017 13:35
[2017-03-30] MEDS: ERGOCALCIFEROL (VIT D2) 50,000 UNIT CAP PO SCH (18:25)
[2017-03-30 20:00] VITALS: BP 123/72; PULSE 89; RESP 18; TEMP 98.7; O2SAT 93
[2017-03-31] MEDS: MAGNESIUM HYDROXIDE SUSP 30 ML CUP PO PRN (06:21)
[2017-03-31] MEDS: INSULIN ASPART SUPPLEMENTAL SCALE SQ SCH (06:37)
[2017-03-31] MEDS: BACITRACIN TOP OINT 15 GM TUBE TOPICAL SCH (09:00)
[2017-03-31 09:02] VITALS: BP 111/76; PULSE 92; RESP 19; TEMP 99.1; O2SAT 95
[2017-03-31] MEDS: CHOLECALCIFEROL (VIT D3) 1000 UNIT TAB PO SCH (09:19)
[2017-03-31] MEDS: CALCIUM/VITAMIN D 250 MG/125 U TAB PO SCH ×3 (09:19→18:03)
[2017-03-31] MEDS: POLYETHYLENE GLYCOL 17 GM PKG PO SCH (09:19)
[2017-03-31] MEDS: RIVAROXABAN 15 MG TAB PO SCH ×2 (09:19→20:13)
[2017-03-31] MEDS: PANTOPRAZOLE SOD 40 MG DELAYED RELEASE TAB PO SCH (09:20)
[2017-03-31] MEDS: LISINOPRIL 10 MG TAB PO SCH (09:20)
[2017-03-31] MEDS: oxyCODONE HCL 20 MG CONTROLLED RELEASE TAB PO SCH ×2 (09:21→20:14)
[2017-03-31] MEDS: metFORMIN HCL 850 MG TAB PO SCH (09:31)
--- NOTE | 2017-03-31 10:58 | HHI.PR ---
Subjective Remarks Patient seen and examined today for follow-up on right femur and tibia fracture. Patient rather discouraged because orthopedic will not perform surgery on his history of right hip dislocation. Objective Vitals Vital Signs Date Time Temp Pulse Resp B/P Pulse Ox O2 Delivery O2 Flow Rate FiO2 03/31/17 10:27 18 03/31/17 09:02 99.1 92 19 111/76 95 03/31/17 07:30 18 03/30/17 20:00 98.7 89 18 123/72 93 I/O 03/30/17 03/30/17 03/30/17 03/31/17 03/31/17 03/31/17 07:00 15:00 23:00 07:00 15:00 23:00 Intake Total 560 ml 480 ml 480 ml Output Total 500 ml 600 ml 1550 ml 500 ml Balance 60 ml -600 ml -1070 ml -20 ml Intake Oral 560 ml 480 ml 480 ml Output Urine Total 500 ml 600 ml 1550 ml 500 ml # Bowel Movements 0 0 0 Result Diagram: 03/29/17 1110 03/30/17 0450 Objective Remarks GENERAL: Well-developed, well-nourished, in no acute distress. alert and orientated HEENT: Head is normocephalic without any lesions or masses noted. Facial features are symmetric. Eyes: Extraocular muscles are intact. Conjunctivae were clear. NECK: Supple without any masses. Trachea midline no deviation. No JVD, CARDIAC: Regular rhythm, regular rate. S1/S2 are heard. No murmurs gallops or rubs. LUNGS: Clear to auscultation bilaterally. No wheeze, rhonchi or rales. No use of accessory muscles on inspiration or expiration. ABDOMEN: Soft, nontender. Nondistended. Bowel sounds heard in all 4 quadrants. No organomegaly or masses. Negative rebound, negative guarding EXTREMITIES: No edema, pulses are equal bilaterally. No cyanosis or clubbing NEUROLOGY: Mood and affect appear appropriate. Cranial nerves II through XII grossly intact. Moving all extremities, speech is clear Procedures Open reduction internal fixation right distal femur supracondylar intra- articular fracture 03/16/17 Urinary Catheter: No Vascular Central Line Catheter: No A/P Assessment and Plan Right comminuted distal femur fracture and proximal tibia fracture with intra- articular involvement Orthopedic evaluated and patient underwent surgery on 03/16/17 with open reduction internal fixation of the right distal femur supracondylar intra- articular fracture Physical therapy recommendations indicate nonweightbearing right lower extremity Immobilizer at all times except for passive range of motion of 090. No active leg lifts or quad sets Repeat imaging requested and reviewed by orthopedic for further evaluation Daily dressing changes Pain control, patient still with postsurgical pain. Will adjust medications when appropriate Oxycodone 5 mg every 6 hours as needed for pain to5 Oxycodone 10 mg every 6 hours as needed for pain 610 Oxycodone SR 20 mg every 12 hours Ibuprofen 600 mg 3 times daily DVT of the right lower extremity in the peroneal vein. Continue Xarelto Acute cholecystitis: Resolved Confirmed with CT and HIDA scan Surgery consulted and S/p cholecystectomy 03/27/17. Neurosurgery has signed off History of Right total hip dislocation-stable Continue physical therapy Diabetes, chronic, A1c 5.9 Discontinue Accu checks AC/HS with low dose SSI. Continue Glucophage 850 mg daily Leukocytosis, likely reactive, resolved Continue monitor CBC periodically Hypertension, improved Clonidine PRN Continue lisinopril 10 mg daily DVT prophylaxis: Luiz Pérez Discharge Planning Discharge per case management Warner Miller Mar 31, 2017 10:58
--- NOTE | 2017-03-31 11:04 | MP ---
cc: HORACIO GARDUNO M.D. DATE OF SURGERY 03/27/2017 PROCEDURE Laparoscopic cholecystectomy PREOPERATIVE DIAGNOSIS Acute cholecystitis POSTOPERATIVE DIAGNOSIS Gangrenous cholecystitis ANESTHESIA General endotracheal SURGEON Horacio Garduno MD ESTIMATED BLOOD LOSS 100 mL FLUIDS 900 mL crystalloid COMPLICATIONS None DRAINS None SPECIMEN Gallbladder and stones to pathology. PROCEDURE IN DETAIL The patient was taken to the operating room and placed on the operating table in the supine position. After an adequate level of general endotracheal anesthesia was achieved, the abdomen was prepped and draped in the usual fashion. Time-out was taken confirming the correct patient site and procedure to be performed. An incision was made in the umbilicus and carried through the fascia sharply. The peritoneal cavity was directly visualized. A 12 mm balloon trocar was inserted and the balloon inflated. The abdomen was insufflated. The patient was placed in reverse Trendelenburg position. The upper abdomen was visualized. Three 5 mm trocars were placed with the first to the right of the falciform ligament and the second and third in the right subcostal region. All entered the abdominal cavity under direct vision uneventfully. Omentum was plastered to the gallbladder and this was gently bluntly dissected away. The gallbladder was punctured and approximately 60 cc of green fluid was removed. This allowed for easier grasping and manipulation of the gallbladder. The gallbladder was then grasped and retracted upward. Further gentle blunt dissection and electrocautery was utilized to dissect the gallbladder away from the omentum. The infundibulum was then identified as was the cystic artery. The artery was doubly clipped proximally, singly clipped on the gallbladder side and divided. The cystic duct was somewhat enlarged and the gallbladder was dissected in a dome down fashion. The cystic duct was controlled with an Endoloop and then divided. An Endo clip was then also placed on this to further secure it. After dividing the cystic duct, the gallbladder was placed into an EndoCatch device and removed via the umbilical port and passed off the table. The upper abdomen was then revisualized. The liver bed was made hemostatic with electrocautery. The cystic artery stump and cystic duct stump were both seen to be clean and dry. All irrigation was aspirated and care was taken to reexamine the omentum which was also dry at this point. With hemostasis assured, insufflation was discontinued and the upper abdominal trocars were removed under direct vision. No bleeding was noted from the trocar sites. The laparoscope and umbilical port were then removed. The fascia was closed in the umbilicus with 0 Vicryl suture. The skin was closed at all sites with 4-0 Vicryl in an interrupted buried fashion. When this was completed, all sites were dressed with Steri-Strips. The patient was extubated and taken back to the recovery room in stable condition. He tolerated procedure well. MD ANN MARIE Whitney/RM /10:37 AM /10:50 AM SAJAN
[2017-03-31 20:00] VITALS: BP 131/75; PULSE 90; RESP 21; TEMP 99.3; O2SAT 95
--- NOTE | 2017-03-31 20:23 | RADHPO ---
EXAM DATE/TIME: 03/31/2017 19:41 [facility] COMPARISON: CHEST SINGLE AP, May 25, 2016, 21:47. INDICATIONS : Shortness of breath starting today MEDICAL HISTORY : None. SURGICAL HISTORY : None. ENCOUNTER: Initial ACUITY: 1 day PAIN SCORE: 0/10 LOCATION: Bilateral chest FINDINGS: A single AP portable erect view of the chest was obtained. The study is Midinspiratory with apparent crowding of the lung vasculature. There are no new confluent infiltrates or effusions. The heart size remains mildly prominent. The bony structures are intact and the patient is again noted to be status post lower cervical fusion. CONCLUSION: Midinspiratory study with crowding of the lung vasculature and no definite acute card iopulmonary disease. Horacio Tripp MD on March 31, 2017 at 20:20 Board Certified Radiologist. This report was verified electronically.
[2017-03-31 20:25] LABS: AUTOMATED NEUTROPHIL # 5.6 TH/MM3 (1.8-7.7); BASOPHIL % 0.3 % (0.0-2.0); EOSINOPHIL # 0.5 TH/MM3 (0-0.4); EOSINOPHIL % 6.4 % (0.0-4.0); HEMO FLAGS DIFF FINAL; LYMPH % 17.2 % (9.0-44.0); LYMPHOCYTE # 1.5 TH/MM3 (1.0-4.8); MEAN CELL VOLUME 91.3 FL (80.0-100.0); MEAN CORPUSCULAR HEMOGLOBIN 30.1 PG (27.0-34.0); MONO % 10.5 % (0.0-8.0); NEUT % 65.6 % (16.0-70.0); PLATELET COUNT 467 TH/MM3 (150-450); RED BLOOD COUNT 3.07 MIL/MM3 (4.50-5.90); RED CELL DISTRIBUTION WIDTH 12.5 % (11.6-17.2); WHITE BLOOD COUNT 8.5 TH/MM3 (4.0-11.0)
[2017-03-31 20:27] VITALS: O2SAT 94
[2017-03-31 20:34] LABS: POTASSIUM 3.9 MEQ/L (3.5-5.1)
[2017-03-31 20:37] LABS: BICARBONATE 35.9 MEQ/L (21.0-32.0)
[2017-04-01 07:49] VITALS: O2SAT 92
[2017-04-01 08:00] VITALS: BP 105/69; PULSE 74; RESP 16; TEMP 97.5; O2SAT 95
[2017-04-01] MEDS: BACITRACIN TOP OINT 15 GM TUBE TOPICAL SCH (09:00)
[2017-04-01] MEDS: POLYETHYLENE GLYCOL 17 GM PKG PO SCH (09:00)
[2017-04-01] MEDS: oxyCODONE HCL 20 MG CONTROLLED RELEASE TAB PO SCH (09:03)
[2017-04-01] MEDS: LISINOPRIL 10 MG TAB PO SCH (09:03)
[2017-04-01] MEDS: CHOLECALCIFEROL (VIT D3) 1000 UNIT TAB PO SCH (09:03)
[2017-04-01] MEDS: RIVAROXABAN 15 MG TAB PO SCH ×2 (09:04→21:39)
[2017-04-01] MEDS: metFORMIN HCL 850 MG TAB PO SCH (09:04)
[2017-04-01] MEDS: PANTOPRAZOLE SOD 40 MG DELAYED RELEASE TAB PO SCH (09:04)
[2017-04-01] MEDS: CALCIUM/VITAMIN D 250 MG/125 U TAB PO SCH ×3 (09:04→17:45)
[2017-04-01 09:20] VITALS: O2SAT 95
--- NOTE | 2017-04-01 10:29 | HHI.PR ---
Subjective Remarks Patient's exam today for follow-up on right femur and tibia fracture. Apparently last evening as indicated by nursing staff that the patient had an episode of hypoxia. Patient had chest x-ray performed at that time which did not show any acute abnormality. There is no documented hypoxia in the chart. Discussed with patient the need to continue with incentive spirometry due to his continuously laying in bed because of his weightbearing status. I evaluated him this morning off oxygen and he had 95% O2 sats off oxygen. Notified him that we may need to decrease his pain medication due to decreased respiratory effort. Objective Vitals Vital Signs Date Time Temp Pulse Resp B/P Pulse Ox O2 Delivery O2 Flow Rate FiO2 04/01/17 10:06 16 04/01/17 08:00 97.5 74 16 105/69 95 04/01/17 07:49 92 Nasal Cannula 1.50 03/31/17 20:27 94 Nasal Cannula 2.00 03/31/17 20:00 99.3 90 21 131/75 95 03/31/17 14:15 18 I/O 03/31/17 03/31/17 03/31/17 04/01/17 04/01/17 04/01/17 07:00 15:00 23:00 07:00 15:00 23:00 Intake Total 480 ml 480 ml 360 ml 360 ml 480 ml Output Total 500 ml 700 ml 1150 ml 1700 ml 500 ml Balance -20 ml -220 ml -790 ml -1340 ml -20 ml Intake Oral 480 ml 480 ml 360 ml 360 ml 480 ml Output Urine Total 500 ml 700 ml 1150 ml 1700 ml 500 ml # Bowel Movements 0 0 1 2 0 Result Diagram: 03/31/17200403/31/172004 Objective Remarks GENERAL: Well-developed, well-nourished, in no acute distress. alert and orientated HEENT: Head is normocephalic without any lesions or masses noted. Facial features are symmetric. Eyes: Extraocular muscles are intact. Conjunctivae were clear. NECK: Supple without any masses. Trachea midline no deviation. No JVD, CARDIAC: Regular rhythm, regular rate. S1/S2 are heard. No murmurs gallops or rubs. LUNGS: Clear to auscultation bilaterally. No wheeze, rhonchi or rales. No use of accessory muscles on inspiration or expiration. ABDOMEN: Soft, nontender. Nondistended. Bowel sounds heard in all 4 quadrants. No organomegaly or masses. Negative rebound, negative guarding EXTREMITIES: No edema, pulses are equal bilaterally. No cyanosis or clubbing NEUROLOGY: Mood and affect appear appropriate. Cranial nerves II through XII grossly intact. Moving all extremities, speech is clear Procedures Open reduction internal fixation right distal femur supracondylar intra- articular fracture 03/16/17 Urinary Catheter: No Vascular Central Line Catheter: No A/P Assessment and Plan Right comminuted distal femur fracture and proximal tibia fracture with intra- articular involvement Orthopedic evaluated and patient underwent surgery on 03/16/17 with open reduction internal fixation of the right distal femur supracondylar intra- articular fracture Physical therapy recommendations indicate nonweightbearing right lower extremity Immobilizer at all times except for passive range of motion of 090. No active leg lifts or quad sets Repeat imaging requested and reviewed by orthopedic for further evaluation Daily dressing changes Pain control, patient still with postsurgical pain. Will adjust medications when appropriate Oxycodone 5 mg every 6 hours as needed for pain to5 Oxycodone 10 mg every 6 hours as needed for pain 610 Oxycodone SR 10 mg every 12 hours Ibuprofen 600 mg 3 times daily DVT of the right lower extremity in the peroneal vein. Continue Xarelto Chronic obstructive pulmonary disease with hypercapnia Possible increased hypercapnia secondary to atelectasis. Patient counseled significantly on increased use with incentive spirometry Maintain O2 saturations greater than 88% We'll decrease narcotic medication because of diminished respiratory effort Acute cholecystitis: Resolved Confirmed with CT and HIDA scan Surgery consulted and S/p cholecystectomy 03/27/17. Neurosurgery has signed off History of Right total hip dislocation-stable Continue physical therapy Diabetes, chronic, A1c 5.9 Discontinued Accu checks AC/HS with low dose SSI. Continue Glucophage 850 mg daily Leukocytosis, likely reactive, resolved Continue monitor CBC periodically Hypertension, improved Clonidine PRN Continue lisinopril 10 mg daily DVT prophylaxis: SCDs, Xarelto Discharge Planning Discharge per case management Warner Miller Apr 01, 2017 10:29
[2017-04-01 12:03] VITALS: O2SAT 92
[2017-04-01 20:00] VITALS: BP 120/75; PULSE 80; RESP 18; TEMP 97.7; O2SAT 95
[2017-04-01] MEDS: DOCUSATE SODIUM 100 MG CAP PO SCH (21:39)
[2017-04-01] MEDS: oxyCODONE HCL 10 MG CONTROLLED RELEASE TAB PO SCH (21:40)
[2017-04-01 22:10] VITALS: O2SAT 94
[2017-04-02 08:00] VITALS: BP 116/68; PULSE 78; RESP 18; TEMP 96.8; O2SAT 96
[2017-04-02] MEDS: CHOLECALCIFEROL (VIT D3) 1000 UNIT TAB PO SCH (08:15)
[2017-04-02] MEDS: LISINOPRIL 10 MG TAB PO SCH (08:15)
[2017-04-02] MEDS: RIVAROXABAN 15 MG TAB PO SCH ×2 (08:15→21:59)
[2017-04-02] MEDS: CALCIUM/VITAMIN D 250 MG/125 U TAB PO SCH ×3 (08:15→17:25)
[2017-04-02] MEDS: oxyCODONE HCL 10 MG CONTROLLED RELEASE TAB PO SCH ×2 (08:15→21:59)
[2017-04-02] MEDS: PANTOPRAZOLE SOD 40 MG DELAYED RELEASE TAB PO SCH (08:15)
[2017-04-02] MEDS: DOCUSATE SODIUM 100 MG CAP PO SCH ×2 (08:15→21:59)
[2017-04-02] MEDS: metFORMIN HCL 850 MG TAB PO SCH (08:15)
[2017-04-02] MEDS: BACITRACIN TOP OINT 15 GM TUBE TOPICAL SCH (08:16)
--- NOTE | 2017-04-02 09:27 | HHI.PR ---
Subjective Remarks Patient seen and examined today for follow-up on right femur and tibia fracture. Patient states that he is doing better today. He did get out of bed for 5 hours into the chair yesterday. Patient been using incentive spirometry and has not required any oxygen. Objective Vitals Vital Signs Date Time Temp Pulse Resp B/P Pulse Ox O2 Delivery O2 Flow Rate FiO2 04/01/17 22:10 94 21 04/01/17 20:00 97.7 80 18 120/75 95 04/01/17 13:46 18 04/01/17 12:03 92 04/01/17 10:06 16 I/O 04/01/17 04/01/17 04/01/17 04/02/17 04/02/17 04/02/17 07:00 15:00 23:00 07:00 15:00 23:00 Intake Total 360 ml 960 ml 880 ml 980 ml Output Total 1700 ml 1200 ml 1350 ml 1100 ml Balance -1340 ml -240 ml -470 ml -120 ml Intake Oral 360 ml 960 ml 880 ml 980 ml Output Urine Total 1700 ml 1200 ml 1350 ml 1100 ml # Bowel Movements 2 0 1 0 Result Diagram: 03/31/17200403/31/172004 Objective Remarks GENERAL: Well-developed, well-nourished, in no acute distress. alert and orientated HEENT: Head is normocephalic without any lesions or masses noted. Facial features are symmetric. Eyes: Extraocular muscles are intact. Conjunctivae were clear. NECK: Supple without any masses. Trachea midline no deviation. No JVD, CARDIAC: Regular rhythm, regular rate. S1/S2 are heard. No murmurs gallops or rubs. LUNGS: Clear to auscultation bilaterally. No wheeze, rhonchi or rales. No use of accessory muscles on inspiration or expiration. ABDOMEN: Soft, nontender. Nondistended. Bowel sounds heard in all 4 quadrants. No organomegaly or masses. Negative rebound, negative guarding EXTREMITIES: No edema, pulses are equal bilaterally. No cyanosis or clubbing NEUROLOGY: Mood and affect appear appropriate. Cranial nerves II through XII grossly intact. Moving all extremities, speech is clear Procedures Open reduction internal fixation right distal femur supracondylar intra- articular fracture 03/16/17 Urinary Catheter: No Vascular Central Line Catheter: No A/P Assessment and Plan Right comminuted distal femur fracture and proximal tibia fracture with intra- articular involvement Orthopedic evaluated and patient underwent surgery on 03/16/17 with open reduction internal fixation of the right distal femur supracondylar intra- articular fracture Physical therapy recommendations indicate nonweightbearing right lower extremity Immobilizer at all times except for passive range of motion of 090. No active leg lifts or quad sets Repeat imaging requested and reviewed by orthopedic for further evaluation Daily dressing changes Pain control, patient still with postsurgical pain. Will adjust medications when appropriate Oxycodone 5 mg every 6 hours as needed for pain to5 Oxycodone 10 mg every 6 hours as needed for pain 610 Oxycodone SR 10 mg every 12 hours Ibuprofen 600 mg 3 times daily DVT of the right lower extremity in the peroneal vein. Continue Xarelto Chronic obstructive pulmonary disease with hypercapnia, stable Possible increased hypercapnia secondary to atelectasis and narcotic use. Patient counseled significantly on increased use with incentive spirometry Maintain O2 saturations greater than 88% Decreased narcotic medication which has helped with respiratory effort Acute cholecystitis: Resolved Confirmed with CT and HIDA scan Surgery consulted and S/p cholecystectomy 03/27/17. Surgery has signed off History of Right total hip dislocation-stable Continue physical therapy No surgical intervention per orthopedist Diabetes, chronic, A1c 5.9 Continue Glucophage 850 mg daily Hypertension, improved Clonidine PRN Continue lisinopril 10 mg daily DVT prophylaxis: SCDs, Xarelto Discharge Planning Discharge per case management Warner Miller Apr 02, 2017 09:27
[2017-04-02 20:00] VITALS: BP 116/75; PULSE 83; RESP 20; TEMP 97.1; O2SAT 94
[2017-04-02 21:01] VITALS: O2SAT 94
[2017-04-03 08:00] VITALS: BP 133/83; PULSE 82; RESP 18; TEMP 97; O2SAT 95
[2017-04-03] MEDS: LISINOPRIL 10 MG TAB PO SCH (08:50)
[2017-04-03] MEDS: CHOLECALCIFEROL (VIT D3) 1000 UNIT TAB PO SCH (08:51)
[2017-04-03] MEDS: DOCUSATE SODIUM 100 MG CAP PO SCH ×2 (08:51→21:20)
[2017-04-03] MEDS: metFORMIN HCL 850 MG TAB PO SCH (08:51)
[2017-04-03] MEDS: oxyCODONE HCL 10 MG CONTROLLED RELEASE TAB PO SCH ×2 (08:51→21:21)
[2017-04-03] MEDS: RIVAROXABAN 15 MG TAB PO SCH ×2 (08:51→21:20)
[2017-04-03] MEDS: BACITRACIN TOP OINT 15 GM TUBE TOPICAL SCH (08:51)
[2017-04-03] MEDS: PANTOPRAZOLE SOD 40 MG DELAYED RELEASE TAB PO SCH (08:51)
[2017-04-03] MEDS: CALCIUM/VITAMIN D 250 MG/125 U TAB PO SCH ×3 (08:51→14:38)
--- NOTE | 2017-04-03 11:05 | HHI.PR ---
Subjective Remarks Patient seen and examined today for follow-up on right femur tibia fracture. No change in clinical status at this time. Awaiting for patient in a heal and orthopedic approval to discharge Objective Vitals Vital Signs Date Time Temp Pulse Resp B/P Pulse Ox O2 Delivery O2 Flow Rate FiO2 04/03/17 08:00 97.0 82 18 133/83 95 04/02/17 21:01 94 21 04/02/17 20:00 97.1 83 20 116/75 94 I/O 04/02/17 04/02/17 04/02/17 04/03/17 04/03/17 04/03/17 07:00 15:00 23:00 07:00 15:00 23:00 Intake Total 980 ml 240 ml 220 ml Output Total 1100 ml 650 ml 575 ml Balance -120 ml -410 ml -355 ml Intake Oral 980 ml 240 ml 220 ml Output Urine Total 1100 ml 650 ml 575 ml # Bowel Movements 0 Result Diagram: 03/31/17200403/31/172004 Objective Remarks GENERAL: Well-developed, well-nourished, in no acute distress. alert and orientated HEENT: Head is normocephalic without any lesions or masses noted. Facial features are symmetric. Eyes: Extraocular muscles are intact. Conjunctivae were clear. NECK: Supple without any masses. Trachea midline no deviation. No JVD, CARDIAC: Regular rhythm, regular rate. S1/S2 are heard. No murmurs gallops or rubs. LUNGS: Clear to auscultation bilaterally. No wheeze, rhonchi or rales. No use of accessory muscles on inspiration or expiration. ABDOMEN: Soft, nontender. Nondistended. Bowel sounds heard in all 4 quadrants. No organomegaly or masses. Negative rebound, negative guarding EXTREMITIES: No edema, pulses are equal bilaterally. No cyanosis or clubbing NEUROLOGY: Mood and affect appear appropriate. Cranial nerves II through XII grossly intact. Moving all extremities, speech is clear Procedures Open reduction internal fixation right distal femur supracondylar intra- articular fracture 03/16/17 Urinary Catheter: No Vascular Central Line Catheter: No A/P Assessment and Plan Right comminuted distal femur fracture and proximal tibia fracture with intra- articular involvement Orthopedic evaluated and patient underwent surgery on 03/16/17 with open reduction internal fixation of the right distal femur supracondylar intra- articular fracture Physical therapy recommendations indicate nonweightbearing right lower extremity Immobilizer at all times except for passive range of motion of 090. No active leg lifts or quad sets Repeat imaging requested and reviewed by orthopedic for further evaluation Daily dressing changes Pain control, patient still with postsurgical pain. Will adjust medications when appropriate Oxycodone 5 mg every 6 hours as needed for pain to5 Oxycodone 10 mg every 6 hours as needed for pain 610 Oxycodone SR 10 mg every 12 hours Ibuprofen 600 mg 3 times daily DVT of the right lower extremity in the peroneal vein. Continue Xarelto Chronic obstructive pulmonary disease with hypercapnia, stable Possible increased hypercapnia secondary to atelectasis and narcotic use. Patient counseled significantly on increased use with incentive spirometry Maintain O2 saturations greater than 88% Decreased narcotic medication which has helped with respiratory effort Acute cholecystitis: Resolved Confirmed with CT and HIDA scan Surgery consulted and S/p cholecystectomy 03/27/17. Surgery has signed off History of Right total hip dislocation-stable Continue physical therapy No surgical intervention per orthopedist Diabetes, chronic, A1c 5.9 Continue Glucophage 850 mg daily Hypertension, improved Clonidine PRN Continue lisinopril 10 mg daily DVT prophylaxis: Elisa, Xarelto Discharge Planning Discharge per case management Warner Miller Apr 03, 2017 11:05
[2017-04-03 20:00] VITALS: BP 110/75; PULSE 86; RESP 16; TEMP 96.9; O2SAT 95
[2017-04-04 08:00] VITALS: BP 116/74; PULSE 76; RESP 20; TEMP 97.3; O2SAT 94
[2017-04-04] MEDS: oxyCODONE HCL 10 MG CONTROLLED RELEASE TAB PO SCH ×2 (08:12→21:00)
[2017-04-04] MEDS: RIVAROXABAN 15 MG TAB PO SCH ×2 (08:12→21:01)
[2017-04-04] MEDS: LISINOPRIL 10 MG TAB PO SCH (08:12)
[2017-04-04] MEDS: CALCIUM/VITAMIN D 250 MG/125 U TAB PO SCH ×3 (08:12→14:56)
[2017-04-04] MEDS: PANTOPRAZOLE SOD 40 MG DELAYED RELEASE TAB PO SCH (08:12)
[2017-04-04] MEDS: metFORMIN HCL 850 MG TAB PO SCH (08:12)
[2017-04-04] MEDS: BACITRACIN TOP OINT 15 GM TUBE TOPICAL SCH (08:13)
[2017-04-04] MEDS: DOCUSATE SODIUM 100 MG CAP PO SCH ×2 (08:13→21:00)
[2017-04-04] MEDS: CHOLECALCIFEROL (VIT D3) 1000 UNIT TAB PO SCH (08:13)
--- NOTE | 2017-04-04 11:42 | HHI.PR ---
Subjective Remarks Patient seen and examined today for follow-up on right femur/tibia fracture. Patient denies any new complaints today. Patient inquiring if he can use a bedside commode instead of bed pain. Objective Vitals Vital Signs Date Time Temp Pulse Resp B/P Pulse Ox O2 Delivery O2 Flow Rate FiO2 04/04/17 08:00 97.3 76 20 116/74 94 04/03/17 20:00 96.9 86 16 110/75 95 I/O 04/03/17 04/03/17 04/03/17 04/04/17 04/04/17 04/04/17 07:00 15:00 23:00 07:00 15:00 23:00 Intake Total 220 ml 1450 ml 720 ml Output Total 575 ml 1000 ml 650 ml 1100 ml Balance -355 ml -1000 ml 800 ml -380 ml Intake Oral 220 ml 1450 ml 720 ml Output Urine Total 575 ml 1000 ml 650 ml 1100 ml # Bowel Movements 0 0 Result Diagram: 03/31/17200403/31/172004 Objective Remarks GENERAL: Well-developed, well-nourished, in no acute distress. alert and orientated HEENT: Head is normocephalic without any lesions or masses noted. Facial features are symmetric. Eyes: Extraocular muscles are intact. Conjunctivae were clear. NECK: Supple without any masses. Trachea midline no deviation. No JVD, CARDIAC: Regular rhythm, regular rate. S1/S2 are heard. No murmurs gallops or rubs. LUNGS: Clear to auscultation bilaterally. No wheeze, rhonchi or rales. No use of accessory muscles on inspiration or expiration. ABDOMEN: Soft, nontender. Nondistended. Bowel sounds heard in all 4 quadrants. No organomegaly or masses. Negative rebound, negative guarding EXTREMITIES: No edema, pulses are equal bilaterally. No cyanosis or clubbing NEUROLOGY: Mood and affect appear appropriate. Cranial nerves II through XII grossly intact. Moving all extremities, speech is clear Procedures Open reduction internal fixation right distal femur supracondylar intra- articular fracture 03/16/17 Urinary Catheter: No Vascular Central Line Catheter: No A/P Assessment and Plan Right comminuted distal femur fracture and proximal tibia fracture with intra- articular involvement Orthopedic evaluated and patient underwent surgery on 03/16/17 with open reduction internal fixation of the right distal femur supracondylar intra- articular fracture Physical therapy recommendations indicate nonweightbearing right lower extremity Immobilizer at all times except for passive range of motion of 090. No active leg lifts or quad sets Repeat imaging requested and reviewed by orthopedic for further evaluation Daily dressing changes Pain control, patient still with postsurgical pain. Will adjust medications when appropriate Oxycodone 5 mg every 6 hours as needed for pain to5 Oxycodone 10 mg every 6 hours as needed for pain 610 Oxycodone SR 10 mg every 12 hours Ibuprofen 600 mg 3 times daily DVT of the right lower extremity in the peroneal vein. Continue Xarelto Chronic obstructive pulmonary disease with hypercapnia, stable Possible increased hypercapnia secondary to atelectasis and narcotic use. Patient counseled significantly on increased use with incentive spirometry Maintain O2 saturations greater than 88% Decreased narcotic medication which has helped with respiratory effort Acute cholecystitis: Resolved Confirmed with CT and HIDA scan Surgery consulted and S/p cholecystectomy 03/27/17. Surgery has signed off History of Right total hip dislocation-stable Continue physical therapy No surgical intervention per orthopedist Diabetes, chronic, A1c 5.9 Continue Glucophage 850 mg daily Hypertension, improved Clonidine PRN Continue lisinopril 10 mg daily DVT prophylaxis: SCDs, Xarelto Discharge Planning Discharge per case management Warner Miller Apr 04, 2017 11:42
[2017-04-04 20:00] VITALS: BP 120/78; PULSE 82; RESP 16; TEMP 97.9; O2SAT 96
[2017-04-05 08:45] VITALS: BP 110/73; PULSE 70; RESP 19; TEMP 96.2; O2SAT 93
[2017-04-05] MEDS: LISINOPRIL 10 MG TAB PO SCH (08:49)
[2017-04-05] MEDS: DOCUSATE SODIUM 100 MG CAP PO SCH ×3 (08:49→21:06)
[2017-04-05] MEDS: CALCIUM/VITAMIN D 250 MG/125 U TAB PO SCH ×3 (08:49→17:21)
[2017-04-05] MEDS: oxyCODONE HCL 10 MG CONTROLLED RELEASE TAB PO SCH ×2 (08:49→21:05)
[2017-04-05] MEDS: RIVAROXABAN 15 MG TAB PO SCH ×2 (08:50→21:06)
[2017-04-05] MEDS: metFORMIN HCL 850 MG TAB PO SCH (08:51)
[2017-04-05] MEDS: PANTOPRAZOLE SOD 40 MG DELAYED RELEASE TAB PO SCH (08:51)
[2017-04-05] MEDS: CHOLECALCIFEROL (VIT D3) 1000 UNIT TAB PO SCH (09:00)
[2017-04-05] MEDS: BACITRACIN TOP OINT 15 GM TUBE TOPICAL SCH (09:00)
--- NOTE | 2017-04-05 11:48 | HHI.PR ---
Subjective Remarks Patient seen and examined today for follow-up on right femur and tibia fracture. Patient denies any new complaints at this time. Bedside commode is in his room, however he states he is not used it yet Objective Vitals Vital Signs Date Time Temp Pulse Resp B/P Pulse Ox O2 Delivery O2 Flow Rate FiO2 04/05/17 08:45 96.2 70 19 110/73 93 04/05/17 07:00 18 04/04/17 20:00 97.9 82 16 120/78 96 I/O 04/04/17 04/04/17 04/04/17 04/05/17 04/05/17 04/05/17 07:00 15:00 23:00 07:00 15:00 23:00 Intake Total 720 ml 720 ml 480 ml 560 ml Output Total 1100 ml 650 ml 300 ml 1000 ml Balance -380 ml 70 ml 180 ml -440 ml Intake Oral 720 ml 720 ml 480 ml 560 ml Output Urine Total 1100 ml 650 ml 300 ml 1000 ml # Voids 2 # Bowel Movements 0 1 0 0 Objective Remarks GENERAL: Well-developed, well-nourished, in no acute distress. alert and orientated HEENT: Head is normocephalic without any lesions or masses noted. Facial features are symmetric. Eyes: Extraocular muscles are intact. Conjunctivae were clear. NECK: Supple without any masses. Trachea midline no deviation. No JVD, CARDIAC: Regular rhythm, regular rate. S1/S2 are heard. No murmurs gallops or rubs. LUNGS: Clear to auscultation bilaterally. No wheeze, rhonchi or rales. No use of accessory muscles on inspiration or expiration. ABDOMEN: Soft, nontender. Nondistended. Bowel sounds heard in all 4 quadrants. No organomegaly or masses. Negative rebound, negative guarding EXTREMITIES: No edema, pulses are equal bilaterally. No cyanosis or clubbing NEUROLOGY: Mood and affect appear appropriate. Cranial nerves II through XII grossly intact. Moving all extremities, speech is clear Procedures Open reduction internal fixation right distal femur supracondylar intra- articular fracture 03/16/17 Urinary Catheter: No Vascular Central Line Catheter: No A/P Assessment and Plan Right comminuted distal femur fracture and proximal tibia fracture with intra- articular involvement Orthopedic evaluated and patient underwent surgery on 03/16/17 with open reduction internal fixation of the right distal femur supracondylar intra- articular fracture Physical therapy recommendations indicate nonweightbearing right lower extremity Immobilizer at all times except for passive range of motion of 090. No active leg lifts or quad sets Repeat imaging requested and reviewed by orthopedic for further evaluation Daily dressing changes Pain control, patient still with postsurgical pain. Will adjust medications when appropriate Oxycodone 5 mg every 6 hours as needed for pain to5 Oxycodone 10 mg every 6 hours as needed for pain 610 Oxycodone SR 10 mg every 12 hours Ibuprofen 600 mg 3 times daily DVT of the right lower extremity in the peroneal vein. Continue Xarelto Chronic obstructive pulmonary disease with hypercapnia, stable Possible increased hypercapnia secondary to atelectasis and narcotic use. Patient counseled significantly on increased use with incentive spirometry Maintain O2 saturations greater than 88% Decreased narcotic medication which has helped with respiratory effort Acute cholecystitis: Resolved Confirmed with CT and HIDA scan Surgery consulted and S/p cholecystectomy 03/27/17. Surgery has signed off History of Right total hip dislocation-stable Continue physical therapy No surgical intervention per orthopedist Diabetes, chronic, A1c 5.9 Continue Glucophage 850 mg daily Hypertension, improved Clonidine PRN Continue lisinopril 10 mg daily DVT prophylaxis: SCDs, Xarelto Discharge Planning Discharge per case management Warner Miller Apr 05, 2017 11:48
[2017-04-05 20:00] VITALS: BP 97/68; PULSE 77; RESP 20; TEMP 96.4; O2SAT 95
[2017-04-06 08:00] VITALS: BP 112/80; PULSE 77; RESP 19; TEMP 97.5; O2SAT 95
[2017-04-06] MEDS: CHOLECALCIFEROL (VIT D3) 1000 UNIT TAB PO SCH (08:33)
[2017-04-06] MEDS: PANTOPRAZOLE SOD 40 MG DELAYED RELEASE TAB PO SCH (08:33)
[2017-04-06] MEDS: RIVAROXABAN 15 MG TAB PO SCH ×2 (08:33→20:53)
[2017-04-06] MEDS: LISINOPRIL 10 MG TAB PO SCH (08:33)
[2017-04-06] MEDS: BACITRACIN TOP OINT 15 GM TUBE TOPICAL SCH (08:34)
[2017-04-06] MEDS: oxyCODONE HCL 10 MG CONTROLLED RELEASE TAB PO SCH ×2 (08:34→20:54)
[2017-04-06] MEDS: CALCIUM/VITAMIN D 250 MG/125 U TAB PO SCH ×3 (08:34→16:18)
[2017-04-06] MEDS: metFORMIN HCL 850 MG TAB PO SCH (08:34)
[2017-04-06] MEDS: DOCUSATE SODIUM 100 MG CAP PO SCH ×3 (09:00→20:56)
--- NOTE | 2017-04-06 10:12 | HHI.PR ---
Subjective Remarks Follow-up for R femur and tibia fractures, DVT. Patient states his strength in his right leg is getting better. He had a bowel movement yesterday. Objective Vitals Vital Signs Date Time Temp Pulse Resp B/P Pulse Ox O2 Delivery O2 Flow Rate FiO2 04/06/17 08:00 97.5 77 19 112/80 95 04/05/17 20:00 96.4 77 20 97/68 95 04/05/17 15:39 18 I/O 04/05/17 04/05/17 04/05/17 04/06/17 04/06/17 04/06/17 07:00 15:00 23:00 07:00 15:00 23:00 Intake Total 560 ml 335 ml 780 ml 240 ml 300 ml Output Total 1000 ml 950 ml 350 ml 650 ml Balance -440 ml -615 ml 430 ml -410 ml 300 ml Intake Oral 560 ml 335 ml 780 ml 240 ml 300 ml Output Urine Total 1000 ml 950 ml 350 ml 650 ml # Voids 2 2 # Bowel Movements 0 Objective Remarks GENERAL: Well-nourished well developed male in no apparent distress. CARDIOVASCULAR: Regular rate and rhythm. RESPIRATORY: No accessory muscle use. Clear to auscultation. Breath sounds equal bilaterally. GASTROINTESTINAL: Normoactive bowel sounds. Abdomen soft, nontender, nondistended. MUSCULOSKELETAL: RLE without CKS in place. 2+ right DP and TP pulses. Right knee is swollen, but right lower leg and foot are nonedematous. NEUROLOGICAL: Awake and alert. Normal speech. PSYCHIATRIC: Appropriate mood and affect. Procedures Open reduction internal fixation right distal femur supracondylar intra- articular fracture 03/16/17 A/P Problem List: (1) Femur fracture ICD Code: S72.90XA Status: Acute (2) Diabetes ICD Code: E11.9 Status: Chronic (3) Leukocytosis ICD Code: D72.829 Status: Acute (4) Fever ICD Code: R50.9 Status: Acute (5) DVT of lower extremity (deep venous thrombosis) ICD Code: I82.409 Status: Acute Assessment and Plan Right comminuted distal femur fracture and proximal tibia fracture with intra- articular involvement Patient underwent surgery on 03/16/17 with open reduction internal fixation of the right distal femur supracondylar intra-articular fracture. Ortho following. Nonweightbearing right lower extremity Immobilizer at all times except for passive range of motion of knee 0-90. No active leg lifts or quad sets Daily dressing changes Pain control: Oxycodone prn q6h; Oxycontin q12h tonight. Advised to ice and elevate R leg to reduce swelling 03/29: Ortho ordered new x-rays. [place] were discontinued on 03/30. Patient was again advised he needs to be wearing his CKS at all times aside from during physical therapy. DVT RLE: Doppler US indicates nonocclusive thrombus of the peroneal vein below the knee. Right lower extremity swelling has improved. -Patient on Xarelto 15 mg po bid Fever: Likely attributed to DVT. Afebrile since 03/29/17. CBC with normal WBC count. Hypokalemia: Resolved. Acute. Acute cholecystitis: Resolved -Confirmed with CT and HIDA scan -S/p cholecystectomy 03/27/17. OP note indicate gangrenous cholecystitis. -Status post IV antibiotics -03/29: AST and Alkaline phosphatase mildly elevated, likely attributed to recent cholecystectomy. History of right total hip dislocation: Chronic, stable Continue physical therapy Diabetes: Chronic, stable. A1c 5.9 BGLs well controlled. Continue metformin. No need for sliding scale insulin. Leukocytosis, likely reactive: Resolved Continue to monitor CBC periodically Anemia: Stable. Likely attributed to acute trauma/illness. -Monitor CBC periodically. Hypertension: Resolved. Clonidine prn Continue Lisinopril 10 mg daily GI prophylaxis: po Protonix, bowel regimen. DVT prophylaxis: SCDs. Xarelto. Discharge Planning Ortho cleared for discharge to rehabilitation when bed available. Follow-up with Dr. Sanchez or PA in 1 month. Problem Qualifiers (1) Femur fracture: Qualified Code: S72.351A - Closed displaced comminuted fracture of shaft of right femur, initial encounter (2) Diabetes: Qualified Code: E11.9 - Type 2 diabetes mellitus without complication, without long-term current use of insulin (3) Leukocytosis: Qualified Code: D72.829 - Leukocytosis, unspecified type (4) DVT of lower extremity (deep venous thrombosis): Shwetha Brock Apr 06, 2017 10:11 (3) Leukocytosis: Qualified Code: D72.829 - Leukocytosis, unspecified type (4) DVT of lower extremity (deep venous thrombosis): Shwetha Brock Apr 06, 2017 10:11
[2017-04-06] MEDS: ERGOCALCIFEROL (VIT D2) 50,000 UNIT CAP PO SCH (16:19)
[2017-04-06 20:07] VITALS: BP 107/74; PULSE 80; RESP 20; TEMP 97.7; O2SAT 97
[2017-04-07 08:00] VITALS: BP 118/77; PULSE 78; RESP 18; TEMP 97.8; O2SAT 96
[2017-04-07] MEDS: BACITRACIN TOP OINT 15 GM TUBE TOPICAL SCH (09:00)
[2017-04-07] MEDS: CALCIUM/VITAMIN D 250 MG/125 U TAB PO SCH ×3 (09:07→17:26)
[2017-04-07] MEDS: DOCUSATE SODIUM 100 MG CAP PO SCH ×2 (09:07→20:45)
[2017-04-07] MEDS: RIVAROXABAN 15 MG TAB PO SCH ×2 (09:07→20:44)
[2017-04-07] MEDS: LISINOPRIL 10 MG TAB PO SCH (09:07)
[2017-04-07] MEDS: metFORMIN HCL 850 MG TAB PO SCH (09:07)
[2017-04-07] MEDS: PANTOPRAZOLE SOD 40 MG DELAYED RELEASE TAB PO SCH (09:08)
[2017-04-07] MEDS: CHOLECALCIFEROL (VIT D3) 1000 UNIT TAB PO SCH (09:08)
[2017-04-07] MEDS: oxyCODONE HCL 10 MG CONTROLLED RELEASE TAB PO SCH ×2 (09:08→20:45)
--- NOTE | 2017-04-07 13:31 | HHI.PR ---
Subjective Remarks Follow-up for R femur and tibia fractures, DVT right lower extremity. Objective Vitals Vital Signs Date Time Temp Pulse Resp B/P Pulse Ox O2 Delivery O2 Flow Rate FiO2 04/07/17 08:00 97.8 78 18 118/77 96 04/06/17 20:07 97.7 80 20 107/74 97 04/06/17 17:18 18 I/O 04/06/17 04/06/17 04/06/17 04/07/17 04/07/17 04/07/17 07:00 15:00 23:00 07:00 15:00 23:00 Intake Total 240 ml 720 ml 900 ml 550 ml Output Total 650 ml 850 ml Balance -410 ml 720 ml 50 ml 550 ml Intake Oral 240 ml 720 ml 900 ml 550 ml Output Urine Total 650 ml 850 ml # Voids 3 3 Objective Remarks GENERAL: Well-nourished well developed male in no apparent distress. CARDIOVASCULAR: Regular rate and rhythm. RESPIRATORY: No accessory muscle use. Clear to auscultation. Breath sounds equal bilaterally. MUSCULOSKELETAL: RLE with CKS in place. 2+ right DP pulse. Right foot is nonedematous. NEUROLOGICAL: Awake and alert. Normal speech. PSYCHIATRIC: Appropriate mood and affect. Procedures Open reduction internal fixation right distal femur supracondylar intra- articular fracture 03/16/17 Urinary Catheter: No Vascular Central Line Catheter: No A/P Problem List: (1) Femur fracture ICD Code: S72.90XA Status: Acute (2) Diabetes ICD Code: E11.9 Status: Chronic (3) Leukocytosis ICD Code: D72.829 Status: Acute (4) Fever ICD Code: R50.9 Status: Acute (5) DVT of lower extremity (deep venous thrombosis) ICD Code: I82.409 Status: Acute Assessment and Plan Right comminuted distal femur fracture and proximal tibia fracture with intra- articular involvement Patient underwent surgery on 03/16/17 with open reduction internal fixation of the right distal femur supracondylar intra-articular fracture. Ortho following. Nonweightbearing right lower extremity Immobilizer at all times except for passive range of motion of knee 0-90. No active leg lifts or quad sets Daily dressing changes Pain control: Oxycodone prn q6h; Oxycontin q12h tonight. Advised to ice and elevate R leg to reduce swelling 03/29: Ortho ordered new x-rays. Patti were discontinued on 03/30. DVT RLE: Doppler US indicates nonocclusive thrombus of the peroneal vein below the knee. Right lower extremity swelling has improved. -Patient on Xarelto 15 mg po bid Fever: Likely attributed to DVT. Afebrile since 03/29/17. CBC with normal WBC count. Hypokalemia: Resolved. Acute. Acute cholecystitis: Resolved -Confirmed with CT and HIDA scan -S/p cholecystectomy 03/27/17. OP note indicate gangrenous cholecystitis. -Status post IV antibiotics -03/29: AST and Alkaline phosphatase mildly elevated, likely attributed to recent cholecystectomy. History of right total hip dislocation: Chronic, stable Continue physical therapy Diabetes: Chronic, stable. A1c 5.9 BGLs well controlled. Continue metformin. No need for sliding scale insulin. Leukocytosis, likely reactive: Resolved Continue to monitor CBC periodically Anemia: Stable. Likely attributed to acute trauma/illness. -Monitor CBC periodically. Hypertension: Resolved. Clonidine prn Continue Lisinopril 10 mg daily GI prophylaxis: po Protonix, bowel regimen. DVT prophylaxis: SCDs. Xarelto. Discharge Planning PT recommends rehab. Ortho cleared for discharge to rehabilitation when bed available. Follow-up with Dr. Sanchez or PA in 1 month. Problem Qualifiers (1) Femur fracture: Qualified Code: S72.351A - Closed displaced comminuted fracture of shaft of right femur, initial encounter (2) Diabetes: Qualified Code: E11.9 - Type 2 diabetes mellitus without complication, without long-term current use of insulin (3) Leukocytosis: Qualified Code: D72.829 - Leukocytosis, unspecified type (4) DVT of lower extremity (deep venous thrombosis): Shwetha Brock Apr 07, 2017 13:31
[2017-04-07 20:24] VITALS: BP 105/74; PULSE 77; RESP 16; TEMP 96.9; O2SAT 95
[2017-04-08 08:00] VITALS: BP 99/69; PULSE 73; RESP 18; TEMP 96.9; O2SAT 96
[2017-04-08] MEDS: CHOLECALCIFEROL (VIT D3) 1000 UNIT TAB PO SCH (08:45)
[2017-04-08] MEDS: metFORMIN HCL 850 MG TAB PO SCH (08:45)
[2017-04-08] MEDS: CALCIUM/VITAMIN D 250 MG/125 U TAB PO SCH ×3 (08:45→18:21)
[2017-04-08] MEDS: RIVAROXABAN 15 MG TAB PO SCH ×2 (08:46→21:14)
[2017-04-08] MEDS: DOCUSATE SODIUM 100 MG CAP PO SCH ×2 (08:46→21:00)
[2017-04-08] MEDS: oxyCODONE HCL 10 MG CONTROLLED RELEASE TAB PO SCH ×2 (08:46→21:15)
[2017-04-08] MEDS: PANTOPRAZOLE SOD 40 MG DELAYED RELEASE TAB PO SCH (08:46)
[2017-04-08] MEDS: LISINOPRIL 10 MG TAB PO SCH (08:46)
[2017-04-08] MEDS: BACITRACIN TOP OINT 15 GM TUBE TOPICAL SCH (08:47)
--- NOTE | 2017-04-08 09:38 | HHI.PR ---
Subjective Remarks Follow-up for R femur and tibia fractures, DVT right lower extremity, s/p cholecystitis/cholecystectomy. Patient states he didn't sleep as much last night but he is doing okay. Denies shortness of breath. Objective Vitals Vital Signs Date Time Temp Pulse Resp B/P Pulse Ox O2 Delivery O2 Flow Rate FiO2 04/08/17 08:00 96.9 73 18 99/69 96 04/07/17 20:24 96.9 77 16 105/74 95 I/O 04/07/17 04/07/17 04/07/17 04/08/17 04/08/17 04/08/17 07:00 15:00 23:00 07:00 15:00 23:00 Intake Total 550 ml 632 ml 220 ml Output Total 350 ml 100 ml 400 ml Balance 550 ml 282 ml -100 ml -180 ml Intake Oral 550 ml 630 ml 220 ml IV Total 2 ml Output Urine Total 350 ml 100 ml 400 ml # Voids 3 1 # Bowel Movements 1 Objective Remarks GENERAL: Well-nourished well developed male in no apparent distress. CARDIOVASCULAR: Regular rate and rhythm. RESPIRATORY: No accessory muscle use. Clear to auscultation. Breath sounds equal bilaterally. GASTROINTESTINAL: Normoactive bowel sounds. Abdomen soft, non-tender, non- distended. MUSCULOSKELETAL: RLE with CKS in place. 2+ right DP and TP pulses. NEUROLOGICAL: Awake and alert. 5/5 dorsiflexion right foot. 4/5 plantar flexion right foot. Normal speech. PSYCHIATRIC: Appropriate mood and affect. Procedures Open reduction internal fixation right distal femur supracondylar intra- articular fracture 03/16/17 Urinary Catheter: No Vascular Central Line Catheter: No A/P Problem List: (1) Femur fracture ICD Code: S72.90XA Status: Acute (2) Diabetes ICD Code: E11.9 Status: Chronic (3) Leukocytosis ICD Code: D72.829 Status: Acute (4) Fever ICD Code: R50.9 Status: Acute (5) DVT of lower extremity (deep venous thrombosis) ICD Code: I82.409 Status: Acute Assessment and Plan Right comminuted distal femur fracture and proximal tibia fracture with intra- articular involvement Patient underwent surgery on 03/16/17 with open reduction internal fixation of the right distal femur supracondylar intra-articular fracture. Ortho following. Nonweightbearing right lower extremity Immobilizer at all times except for passive range of motion of knee 0-90. No active leg lifts or quad sets Daily dressing changes Pain control: Oxycodone prn q6h; Oxycontin q12h tonight. Advised to ice and elevate R leg to reduce swelling 03/29: Ortho ordered new x-rays. Patti were discontinued on 03/30. DVT RLE: Doppler US indicates nonocclusive thrombus of the peroneal vein below the knee. Right lower extremity swelling has improved. -Patient on Xarelto 15 mg po bid Fever: Likely attributed to DVT. Afebrile since 03/29/17. CBC with normal WBC count. Hypokalemia: Resolved. Acute. Acute cholecystitis: Resolved -Confirmed with CT and HIDA scan -S/p cholecystectomy 03/27/17. OP note indicate gangrenous cholecystitis. -Status post IV antibiotics -03/29: AST and Alkaline phosphatase mildly elevated, likely attributed to recent cholecystectomy. History of right total hip dislocation: Chronic, stable Continue physical therapy Diabetes: Chronic, stable. A1c 5.9 BGLs well controlled. Continue metformin. No need for sliding scale insulin. Leukocytosis, likely reactive: Resolved Anemia: Stable. Likely attributed to acute trauma/illness. -Monitor CBC periodically. Hypertension: Resolved. Clonidine prn Continue Lisinopril 10 mg daily 04/08: Patient hypotensive this morning, but he states he has been eating more than normal. BP tends to run lower. Could be attributed to pain medication. Monitor. GI prophylaxis: po Protonix, bowel regimen. DVT prophylaxis: SCDs. Xarelto. Discharge Planning PT recommends rehab. Ortho cleared for discharge to rehabilitation when bed available. Follow-up with Dr. Sanchez or PA in 1 month. 04/07: Per PT patient ambulating 85 feet with SBA/CGA rolling walker with fair balance NON weightbearing on right lower extremity. Will need front wheeled walker and wheelchair with removal legs on discharge. Problem Qualifiers (1) Femur fracture: Qualified Code: S72.351A - Closed displaced comminuted fracture of shaft of right femur, initial encounter (2) Diabetes: Qualified Code: E11.9 - Type 2 diabetes mellitus without complication, without long-term current use of insulin (3) Leukocytosis: Qualified Code: D72.829 - Leukocytosis, unspecified type (4) DVT of lower extremity (deep venous thrombosis): Shwetha Brock Apr 08, 2017 09:37
[2017-04-08 20:00] VITALS: BP 106/66; PULSE 75; RESP 16; TEMP 97.9; O2SAT 95
[2017-04-09] MEDS: DOCUSATE SODIUM 100 MG CAP PO SCH ×3 (09:00→20:53)
[2017-04-09] MEDS: BACITRACIN TOP OINT 15 GM TUBE TOPICAL SCH (09:00)
[2017-04-09] MEDS: CHOLECALCIFEROL (VIT D3) 1000 UNIT TAB PO SCH (09:50)
[2017-04-09] MEDS: RIVAROXABAN 15 MG TAB PO SCH ×2 (09:50→20:51)
[2017-04-09] MEDS: metFORMIN HCL 850 MG TAB PO SCH (09:51)
[2017-04-09] MEDS: LISINOPRIL 10 MG TAB PO SCH (09:51)
[2017-04-09] MEDS: CALCIUM/VITAMIN D 250 MG/125 U TAB PO SCH ×3 (09:51→17:47)
[2017-04-09] MEDS: oxyCODONE HCL 10 MG CONTROLLED RELEASE TAB PO SCH ×2 (09:51→20:51)
[2017-04-09] MEDS: PANTOPRAZOLE SOD 40 MG DELAYED RELEASE TAB PO SCH (09:51)
[2017-04-09 09:54] VITALS: BP 104/75; PULSE 77; RESP 16; TEMP 96.7; O2SAT 93
--- NOTE | 2017-04-09 12:01 | HHI.PR ---
Subjective Remarks Follow-up for R femur and tibia fractures, DVT right lower extremity, s/p cholecystitis/cholecystectomy. Patient states he had some pain earlier but the nurse did not wake him up. I informed him we do not wake patients up for pain medication. States he understands. Objective Vitals Vital Signs Date Time Temp Pulse Resp B/P Pulse Ox O2 Delivery O2 Flow Rate FiO2 04/09/17 10:51 18 04/09/17 09:54 96.7 77 16 104/75 93 04/09/17 08:40 18 04/08/17 20:00 97.9 75 16 106/66 95 I/O 04/08/17 04/08/17 04/08/17 04/09/17 04/09/17 04/09/17 07:00 15:00 23:00 07:00 15:00 23:00 Intake Total 220 ml 650 ml 560 ml 480 ml Output Total 400 ml 950 ml 700 ml 1400 ml 500 ml Balance -180 ml -300 ml -140 ml -920 ml -500 ml Intake Oral 220 ml 650 ml 560 ml 480 ml Output Urine Total 400 ml 950 ml 700 ml 1400 ml 500 ml # Bowel Movements 0 0 Objective Remarks GENERAL: Well-nourished well developed male in no apparent distress. CARDIOVASCULAR: Regular rate and rhythm. RESPIRATORY: No accessory muscle use. Clear to auscultation. Breath sounds equal bilaterally. GASTROINTESTINAL: Normoactive bowel sounds. Abdomen soft, non-tender, non- distended. MUSCULOSKELETAL: RLE with CKS in place. 2+ right DP and TP pulses. No swelling of the R foot. NEUROLOGICAL: Awake and alert. 5/5 dorsiflexion right foot. 4/5 plantar flexion right foot. Normal speech. PSYCHIATRIC: Appropriate mood and affect. Procedures Open reduction internal fixation right distal femur supracondylar intra- articular fracture 03/16/17 Urinary Catheter: No Vascular Central Line Catheter: No A/P Problem List: (1) Femur fracture ICD Code: S72.90XA Status: Acute (2) Diabetes ICD Code: E11.9 Status: Chronic (3) Leukocytosis ICD Code: D72.829 Status: Acute (4) Fever ICD Code: R50.9 Status: Acute (5) DVT of lower extremity (deep venous thrombosis) ICD Code: I82.409 Status: Acute Assessment and Plan Right comminuted distal femur fracture and proximal tibia fracture with intra- articular involvement Patient underwent surgery on 03/16/17 with open reduction internal fixation of the right distal femur supracondylar intra-articular fracture. Ortho following. Nonweightbearing right lower extremity Immobilizer at all times except for passive range of motion of knee 0-90. No active leg lifts or quad sets Daily dressing changes Pain control: Oxycodone prn q6h; Oxycontin q12h tonight. Advised to ice and elevate R leg to reduce swelling 03/29: Ortho ordered new x-rays. Patti were discontinued on 03/30. DVT RLE: Doppler US indicates nonocclusive thrombus of the peroneal vein below the knee. Right lower extremity swelling has improved. -Patient on Xarelto 15 mg po bid Fever: Likely attributed to DVT. Afebrile since 03/29/17. CBC with normal WBC count. Hypokalemia: Resolved. Acute. Acute cholecystitis: Resolved -Confirmed with CT and HIDA scan -S/p cholecystectomy 03/27/17. OP note indicate gangrenous cholecystitis. -Status post IV antibiotics -03/29: AST and Alkaline phosphatase mildly elevated, likely attributed to recent cholecystectomy. History of right total hip dislocation: Chronic, stable Continue physical therapy Diabetes: Chronic, stable. A1c 5.9 BGLs well controlled. Continue metformin. No need for sliding scale insulin. Leukocytosis, likely reactive: Resolved Anemia: Stable. Likely attributed to acute trauma/illness. -Monitor CBC periodically. Hypertension: Resolved. Clonidine prn Continue Lisinopril 10 mg daily GI prophylaxis: po Protonix, bowel regimen. DVT prophylaxis: SCDs. Xarelto. Discharge Planning PT recommends rehab. Ortho cleared for discharge to rehabilitation when bed available. Follow-up with Dr. Sanchez or PA in 1 month. 04/07: Per PT patient ambulating 85 feet with SBA/CGA rolling walker with fair balance NON weightbearing on right lower extremity. Will need front wheeled walker and wheelchair with removal legs on discharge. Problem Qualifiers (1) Femur fracture: Qualified Code: S72.351A - Closed displaced comminuted fracture of shaft of right femur, initial encounter (2) Diabetes: Qualified Code: E11.9 - Type 2 diabetes mellitus without complication, without long-term current use of insulin (3) Leukocytosis: Qualified Code: D72.829 - Leukocytosis, unspecified type (4) DVT of lower extremity (deep venous thrombosis): Shwetha Brock Apr 09, 2017 12:00
[2017-04-09 20:00] VITALS: BP 96/59; PULSE 84; RESP 14; TEMP 97.2; O2SAT 97
[2017-04-10 08:00] VITALS: BP 108/70; PULSE 76; RESP 16; TEMP 98; O2SAT 98
[2017-04-10] MEDS: BACITRACIN TOP OINT 15 GM TUBE TOPICAL SCH (09:00)
--- NOTE | 2017-04-10 09:24 | HHI.PR ---
Subjective Remarks Follow-up for R femur and tibia fractures, DVT right lower extremity, s/p cholecystitis/cholecystectomy. Patient states his R leg brace shifted overnight. Objective Vitals Vital Signs Date Time Temp Pulse Resp B/P Pulse Ox O2 Delivery O2 Flow Rate FiO2 04/10/17 04:10 20 04/09/17 21:56 20 04/09/17 20:00 97.2 84 14 96/59 97 04/09/17 09:54 96.7 77 16 104/75 93 I/O 04/09/17 04/09/17 04/09/17 04/10/17 04/10/17 04/10/17 07:00 15:00 23:00 07:00 15:00 23:00 Intake Total 480 ml 840 ml 480 ml Output Total 1400 ml 500 ml 400 ml 600 ml Balance -920 ml -500 ml 440 ml -120 ml Intake Oral 480 ml 840 ml 480 ml Output Urine Total 1400 ml 500 ml 400 ml 600 ml # Bowel Movements 0 1 0 Objective Remarks GENERAL: Well-nourished well developed male in no apparent distress. CARDIOVASCULAR: Regular rate and rhythm. RESPIRATORY: No accessory muscle use. Clear to auscultation. Breath sounds equal bilaterally. GASTROINTESTINAL: Abdomen soft, non-tender, non-distended. MUSCULOSKELETAL: RLE with loose CKS. 2+ right DP and TP pulses. No swelling of the R foot or lower leg. NEUROLOGICAL: Awake and alert. 5/5 dorsiflexion right foot. 4/5 plantar flexion right foot. Normal speech. PSYCHIATRIC: Appropriate mood and affect. Procedures Open reduction internal fixation right distal femur supracondylar intra- articular fracture 03/16/17 Urinary Catheter: No Vascular Central Line Catheter: No A/P Problem List: (1) Femur fracture ICD Code: S72.90XA Status: Acute (2) Diabetes ICD Code: E11.9 Status: Chronic (3) Leukocytosis ICD Code: D72.829 Status: Acute (4) Fever ICD Code: R50.9 Status: Acute (5) DVT of lower extremity (deep venous thrombosis) ICD Code: I82.409 Status: Acute Assessment and Plan Right comminuted distal femur fracture and proximal tibia fracture with intra- articular involvement Patient underwent surgery on 03/16/17 with open reduction internal fixation of the right distal femur supracondylar intra-articular fracture. Ortho following. Nonweightbearing right lower extremity Immobilizer at all times except for passive range of motion of knee 0-90. No active leg lifts or quad sets Daily dressing changes Pain control: Oxycodone prn q6h; Oxycontin q12h tonight. Advised to ice and elevate R leg to reduce swelling 03/29: Ortho ordered new x-rays. [place] were discontinued on 03/30. DVT RLE: Doppler US indicates nonocclusive thrombus of the peroneal vein below the knee. Right lower extremity swelling has improved. -Patient on Xarelto 15 mg po bid Fever: Likely attributed to DVT. Afebrile since 03/29/17. CBC with normal WBC count. Hypokalemia: Resolved. Acute. Acute cholecystitis: Resolved -Confirmed with CT and HIDA scan -S/p cholecystectomy 03/27/17. OP note indicate gangrenous cholecystitis. -Status post IV antibiotics -03/29: AST and Alkaline phosphatase mildly elevated, likely attributed to recent cholecystectomy. History of right total hip dislocation: Chronic, stable Continue physical therapy Diabetes: Chronic, stable. A1c 5.9 BGLs well controlled. Continue metformin. No need for sliding scale insulin. Leukocytosis, likely reactive: Resolved Anemia: Stable. Likely attributed to acute trauma/illness. -Monitor CBC periodically. Hypertension: Resolved. Clonidine prn Continue Lisinopril 10 mg daily GI prophylaxis: po Protonix, bowel regimen. DVT prophylaxis: SCDs. Xarelto. Discharge Planning PT recommends rehab. Ortho cleared for discharge to rehabilitation when bed available. Follow-up with Dr. Sanchez or PA in 1 month. 04/09: Per PT patient ambulating 90 feet with SBA with rolling walker and fair balance NON weightbearing on right lower extremity. Will need front wheeled walker and wheelchair with removal legs on discharge. Problem Qualifiers (1) Femur fracture: Qualified Code: S72.351A - Closed displaced comminuted fracture of shaft of right femur, initial encounter (2) Diabetes: Qualified Code: E11.9 - Type 2 diabetes mellitus without complication, without long-term current use of insulin (3) Leukocytosis: Qualified Code: D72.829 - Leukocytosis, unspecified type (4) DVT of lower extremity (deep venous thrombosis): Shwetha Brock Apr 10, 2017 09:24
[2017-04-10] MEDS: DOCUSATE SODIUM 100 MG CAP PO SCH ×2 (09:33→21:00)
[2017-04-10] MEDS: metFORMIN HCL 850 MG TAB PO SCH (09:33)
[2017-04-10] MEDS: CHOLECALCIFEROL (VIT D3) 1000 UNIT TAB PO SCH (09:33)
[2017-04-10] MEDS: RIVAROXABAN 15 MG TAB PO SCH ×2 (09:33→21:20)
[2017-04-10] MEDS: PANTOPRAZOLE SOD 40 MG DELAYED RELEASE TAB PO SCH (09:33)
[2017-04-10] MEDS: CALCIUM/VITAMIN D 250 MG/125 U TAB PO SCH ×3 (09:33→15:51)
[2017-04-10] MEDS: oxyCODONE HCL 10 MG CONTROLLED RELEASE TAB PO SCH ×2 (09:33→21:20)
[2017-04-10] MEDS: LISINOPRIL 10 MG TAB PO SCH (09:34)
[2017-04-10 20:00] VITALS: BP 101/69; PULSE 81; RESP 21; TEMP 98.1; O2SAT 97
[2017-04-11 08:00] VITALS: BP 111/67; PULSE 79; RESP 18; TEMP 97; O2SAT 93
[2017-04-11] MEDS: BACITRACIN TOP OINT 15 GM TUBE TOPICAL SCH (09:00)
[2017-04-11] MEDS: PANTOPRAZOLE SOD 40 MG DELAYED RELEASE TAB PO SCH (09:19)
[2017-04-11] MEDS: DOCUSATE SODIUM 100 MG CAP PO SCH ×2 (09:19→20:41)
[2017-04-11] MEDS: metFORMIN HCL 850 MG TAB PO SCH (09:19)
[2017-04-11] MEDS: RIVAROXABAN 15 MG TAB PO SCH ×2 (09:19→20:42)
[2017-04-11] MEDS: CHOLECALCIFEROL (VIT D3) 1000 UNIT TAB PO SCH (09:19)
[2017-04-11] MEDS: CALCIUM/VITAMIN D 250 MG/125 U TAB PO SCH ×3 (09:19→15:47)
[2017-04-11] MEDS: LISINOPRIL 10 MG TAB PO SCH (09:19)
[2017-04-11] MEDS: oxyCODONE HCL 10 MG CONTROLLED RELEASE TAB PO SCH ×3 (09:19→21:59)
--- NOTE | 2017-04-11 11:22 | HHI.PR ---
Subjective Remarks Follow-up for R femur and tibia fractures, DVT right lower extremity, s/p cholecystitis/cholecystectomy. Patient states he stood up earlier. He states the feeling of a shoe on his R foot is now gone and he is getting better sensation in his right leg. Objective Vitals Vital Signs Date Time Temp Pulse Resp B/P Pulse Ox O2 Delivery O2 Flow Rate FiO2 04/11/17 08:00 97.0 79 18 111/67 93 04/10/17 20:00 98.1 81 21 101/69 97 I/O 04/10/17 04/10/17 04/10/17 04/11/17 04/11/17 04/11/17 07:00 15:00 23:00 07:00 15:00 23:00 Intake Total 480 ml 840 ml 240 ml Output Total 600 ml 1000 ml 350 ml 600 ml Balance -120 ml -160 ml -110 ml -600 ml Intake Oral 480 ml 840 ml 240 ml Output Urine Total 600 ml 1000 ml 350 ml 600 ml # Bowel Movements 0 Objective Remarks GENERAL: Well-nourished well developed male in no apparent distress. CARDIOVASCULAR: Regular rate and rhythm. RESPIRATORY: No accessory muscle use. Clear to auscultation. Breath sounds equal bilaterally. GASTROINTESTINAL: Abdomen soft, non-tender, non-distended. MUSCULOSKELETAL: RLE with CKS. 2+ right DP and TP pulses. No swelling of the R foot. NEUROLOGICAL: Awake and alert. 5/5 dorsiflexion right foot. 4/5 plantar flexion right foot. Sensation grossly intact over R toes. Normal speech. PSYCHIATRIC: Appropriate mood and affect. Procedures Open reduction internal fixation right distal femur supracondylar intra- articular fracture 03/16/17 Urinary Catheter: No Vascular Central Line Catheter: No A/P Problem List: (1) Femur fracture ICD Code: S72.90XA Status: Acute (2) Diabetes ICD Code: E11.9 Status: Chronic (3) Leukocytosis ICD Code: D72.829 Status: Resolved (4) Fever ICD Code: R50.9 Status: Resolved (5) DVT of lower extremity (deep venous thrombosis) ICD Code: I82.409 Status: Acute Assessment and Plan Right comminuted distal femur fracture and proximal tibia fracture with intra- articular involvement Patient underwent surgery on 03/16/17 with open reduction internal fixation of the right distal femur supracondylar intra-articular fracture. Ortho following. Nonweightbearing right lower extremity Immobilizer at all times except for passive range of motion of knee 0-90. No active leg lifts or quad sets Daily dressing changes Pain control: Oxycodone prn q6h; Oxycontin q12h tonight. Advised to ice and elevate R leg to reduce swelling 03/29: Ortho ordered new x-rays. [place] were discontinued on 03/30. DVT RLE: Doppler US indicates nonocclusive thrombus of the peroneal vein below the knee. Right lower extremity swelling has improved. -Patient on Xarelto 15 mg po bid Fever: Likely attributed to DVT. Afebrile since 03/29/17. CBC with normal WBC count. Hypokalemia: Resolved. Acute. Acute cholecystitis: Resolved -Confirmed with CT and HIDA scan -S/p cholecystectomy 03/27/17. OP note indicate gangrenous cholecystitis. -Status post IV antibiotics -03/29: AST and Alkaline phosphatase mildly elevated, likely attributed to recent cholecystectomy. History of right total hip dislocation: Chronic, stable Continue physical therapy Diabetes: Chronic, stable. A1c 5.9 BGLs well controlled. Continue metformin. No need for sliding scale insulin. Leukocytosis, likely reactive: Resolved Anemia: Stable. Likely attributed to acute trauma/illness. -04/11: Later in the day the nurse informed me she saw patient walking in the [place] under the light and looked very pale, unwell. She states he denies dizziness. Hemoglobin was 9.2 on 03/31/17 4 days after his cholecystectomy. Will order am CBC to evaluate for worsening anemia. Hypertension: Resolved. Clonidine prn Continue Lisinopril 10 mg daily Recheck BMP in the morning as patient had mild hyponatremia and hypochloremia on 03/31/17. GI prophylaxis: po Protonix, bowel regimen. DVT prophylaxis: SCDs. Xarelto. Discharge Planning PT recommends rehab. Ortho cleared for discharge to rehabilitation when bed available. Follow-up with Dr. Sanchez or PA in 1 month. 04/09: Per PT patient ambulating 90 feet with SBA with rolling walker and fair balance NON weightbearing on right lower extremity. Will need front wheeled walker and wheelchair with removal legs on discharge. Problem Qualifiers (1) Femur fracture: Qualified Code: S72.351A - Closed displaced comminuted fracture of shaft of right femur, initial encounter (2) Diabetes: Qualified Code: E11.9 - Type 2 diabetes mellitus without complication, without long-term current use of insulin (3) Leukocytosis: Qualified Code: D72.829 - Leukocytosis, unspecified type (4) DVT of lower extremity (deep venous thrombosis): Shwetha Brock Apr 11, 2017 11:22
[2017-04-11 20:00] VITALS: BP 97/62; PULSE 78; RESP 21; TEMP 97.2; O2SAT 95
[2017-04-12] MEDS: PANTOPRAZOLE SOD 40 MG DELAYED RELEASE TAB PO SCH (08:01)
[2017-04-12] MEDS: CHOLECALCIFEROL (VIT D3) 1000 UNIT TAB PO SCH (08:01)
[2017-04-12] MEDS: LISINOPRIL 10 MG TAB PO SCH (08:01)
[2017-04-12] MEDS: metFORMIN HCL 850 MG TAB PO SCH (08:01)
[2017-04-12] MEDS: CALCIUM/VITAMIN D 250 MG/125 U TAB PO SCH ×3 (08:01→16:22)
[2017-04-12] MEDS: RIVAROXABAN 15 MG TAB PO SCH ×2 (08:01→20:40)
[2017-04-12] MEDS: BACITRACIN TOP OINT 15 GM TUBE TOPICAL SCH (08:02)
[2017-04-12] MEDS: DOCUSATE SODIUM 100 MG CAP PO SCH ×2 (08:02→20:41)
[2017-04-12 08:52] LABS: BASOPHIL % 0.5 % (0.0-2.0); EOSINOPHIL # 0.5 TH/MM3 (0-0.4); EOSINOPHIL % 7.7 % (0.0-4.0); HEMATOCRIT 35.1 % (39.0-51.0); HEMO FLAGS DIFF FINAL; LYMPH % 32.5 % (9.0-44.0); MEAN CELL VOLUME 87.9 FL (80.0-100.0); MEAN CORPUSCULAR HEMOGLOBIN 29.2 PG (27.0-34.0); MEAN CORPUSCULAR HGB CONC 33.3 % (32.0-36.0); MONO % 9.1 % (0.0-8.0); NEUT % 50.2 % (16.0-70.0); PLATELET COUNT 260 TH/MM3 (150-450); RED BLOOD COUNT 3.99 MIL/MM3 (4.50-5.90); RED CELL DISTRIBUTION WIDTH 13.5 % (11.6-17.2)
[2017-04-12 08:56] VITALS: BP 97/66; PULSE 73; RESP 16; TEMP 96.3; O2SAT 97
[2017-04-12] MEDS ORDERED: oxyCODONE HCL 10 MG CONTROLLED RELEASE TAB PO ONE (09:00)
[2017-04-12 09:03] LABS: BICARBONATE 32.6 MEQ/L (21.0-32.0)
--- NOTE | 2017-04-12 09:55 | HHI.PR ---
Subjective Remarks Follow-up for R femur and tibia fractures, DVT right lower extremity, s/p cholecystitis/cholecystectomy. Patient states he got into the wheelchair earlier. No acute complaints. Objective Vitals Vital Signs Date Time Temp Pulse Resp B/P Pulse Ox O2 Delivery O2 Flow Rate FiO2 04/12/17 08:56 96.3 73 16 97/66 97 04/11/17 20:00 97.2 78 21 97/62 95 I/O 04/11/17 04/11/17 04/11/17 04/12/17 04/12/17 04/12/17 07:00 15:00 23:00 07:00 15:00 23:00 Intake Total 240 ml 120 ml 360 ml Output Total 350 ml 600 ml 1200 ml 1900 ml Balance -110 ml -600 ml -1080 ml -1540 ml Intake Oral 240 ml 120 ml 360 ml Output Urine Total 350 ml 600 ml 1200 ml 1900 ml Result Diagram: 04/12/17 0830 04/12/17 0830 Objective Remarks GENERAL: Well-nourished well developed male in no apparent distress. CARDIOVASCULAR: Regular rate and rhythm. RESPIRATORY: No accessory muscle use. Clear to auscultation. Breath sounds equal bilaterally. GASTROINTESTINAL: Active bowel sounds. Abdomen soft, non-tender, non-distended. MUSCULOSKELETAL: RLE with CKS. 2+ right DP and TP pulses. No swelling of the R foot. NEUROLOGICAL: Awake and alert. Normal speech. PSYCHIATRIC: Appropriate mood and affect. Procedures Open reduction internal fixation right distal femur supracondylar intra- articular fracture 03/16/17 Urinary Catheter: No Vascular Central Line Catheter: No A/P Problem List: (1) Femur fracture ICD Code: S72.90XA Status: Acute (2) Diabetes ICD Code: E11.9 Status: Chronic (3) Leukocytosis ICD Code: D72.829 Status: Resolved (4) Fever ICD Code: R50.9 Status: Resolved (5) DVT of lower extremity (deep venous thrombosis) ICD Code: I82.409 Status: Acute Assessment and Plan Right comminuted distal femur fracture and proximal tibia fracture with intra- articular involvement Patient underwent surgery on 03/16/17 with open reduction internal fixation of the right distal femur supracondylar intra-articular fracture. Ortho following. Nonweightbearing right lower extremity Immobilizer at all times except for passive range of motion of knee 0-90. No active leg lifts or quad sets Daily dressing changes Pain control: Oxycodone prn q6h; Oxycontin q12h tonight. Advised to ice and elevate R leg to reduce swelling 03/29: Ortho ordered new x-rays. [place] were discontinued on 03/30. DVT RLE: Doppler US indicates nonocclusive thrombus of the peroneal vein below the knee. Right lower extremity swelling has improved. -Patient on Xarelto 15 mg po bid Fever: Likely attributed to DVT. Afebrile since 03/29/17. CBC with normal WBC count. Hypokalemia: Resolved. Acute. Acute cholecystitis: Resolved -Confirmed with CT and HIDA scan -S/p cholecystectomy 03/27/17. OP note indicate gangrenous cholecystitis. -Status post IV antibiotics -03/29: AST and Alkaline phosphatase mildly elevated, likely attributed to recent cholecystectomy. History of right total hip dislocation: Chronic, stable Continue physical therapy Diabetes: Chronic, stable. A1c 5.9 BGLs well controlled. Continue metformin. No need for sliding scale insulin. Leukocytosis, likely reactive: Resolved Anemia: Stable. Likely attributed to acute trauma/illness. -04/11: Later in the day the nurse informed me she saw patient walking in the [place] under the light and looked very pale, unwell. She states he denies dizziness. Hemoglobin was 9.2 on 03/31/17 4 days after his cholecystectomy. -04/12: Hemoglobin improved to 11.7. Hypertension: Resolved. Clonidine prn Continue Lisinopril 10 mg daily BMP reviewed. Mild hyponatremia resolved and mild hypochloremia improved. GI prophylaxis: po Protonix, bowel regimen. DVT prophylaxis: SCDs. Xarelto. Discharge Planning PT recommends rehab. Ortho cleared for discharge to rehabilitation when bed available. Follow-up with Dr. Sanchez or PA in 1 month. 04/12: Per PT patient ambulating 60 feet with SBA with rolling walker and fair balance NON weightbearing on right lower extremity. Will need front wheeled walker and wheelchair with removal legs, elevated leg rest on discharge. Problem Qualifiers (1) Femur fracture: Qualified Code: S72.351A - Closed displaced comminuted fracture of shaft of right femur, initial encounter (2) Diabetes: Qualified Code: E11.9 - Type 2 diabetes mellitus without complication, without long-term current use of insulin (3) Leukocytosis: Qualified Code: D72.829 - Leukocytosis, unspecified type (4) DVT of lower extremity (deep venous thrombosis): Shwetha Brock Apr 12, 2017 09:55
[2017-04-12 20:00] VITALS: BP 94/67; PULSE 76; RESP 19; TEMP 97.4; O2SAT 97
[2017-04-12] MEDS: oxyCODONE HCL 10 MG CONTROLLED RELEASE TAB PO SCH (20:41)
[2017-04-13 08:00] VITALS: BP 99/68; PULSE 66; RESP 18; TEMP 96.4; O2SAT 95
[2017-04-13] MEDS: CALCIUM/VITAMIN D 250 MG/125 U TAB PO SCH ×3 (09:34→17:32)
[2017-04-13] MEDS: CHOLECALCIFEROL (VIT D3) 1000 UNIT TAB PO SCH (09:34)
[2017-04-13] MEDS: metFORMIN HCL 850 MG TAB PO SCH (09:34)
[2017-04-13] MEDS: DOCUSATE SODIUM 100 MG CAP PO SCH ×2 (09:34→21:02)
[2017-04-13] MEDS: RIVAROXABAN 15 MG TAB PO SCH ×2 (09:35→21:02)
[2017-04-13] MEDS: oxyCODONE HCL 10 MG CONTROLLED RELEASE TAB PO SCH (09:35)
[2017-04-13] MEDS: PANTOPRAZOLE SOD 40 MG DELAYED RELEASE TAB PO SCH (09:35)
[2017-04-13] MEDS: LISINOPRIL 10 MG TAB PO SCH (09:35)
[2017-04-13] MEDS: BACITRACIN TOP OINT 15 GM TUBE TOPICAL SCH (09:36)
--- NOTE | 2017-04-13 10:32 | HHI.PR ---
Subjective Remarks Patient seen and examined today for follow-up on right femur and tibia fracture. Patient states that he is doing much better. He is moving around more in his wheelchair. Objective Vitals Vital Signs Date Time Temp Pulse Resp B/P Pulse Ox O2 Delivery O2 Flow Rate FiO2 04/13/17 08:00 96.4 66 18 99/68 95 04/13/17 05:45 16 04/12/17 21:41 16 04/12/17 20:00 97.4 76 19 94/67 97 I/O 04/12/17 04/12/17 04/12/17 04/13/17 04/13/17 04/13/17 07:00 15:00 23:00 07:00 15:00 23:00 Intake Total 360 ml 1740 ml 360 ml Output Total 1900 ml 250 ml 425 ml 650 ml Balance -1540 ml 1490 ml -65 ml -650 ml Intake Oral 360 ml 1740 ml 360 ml Output Urine Total 1900 ml 250 ml 425 ml 650 ml # Voids 4 # Bowel Movements 1 Result Diagram: 04/12/17 0830 04/12/17 0830 Objective Remarks GENERAL: Well-developed, well-nourished, in no acute distress. alert and orientated HEENT: Head is normocephalic without any lesions or masses noted. Facial features are symmetric. Eyes: Extraocular muscles are intact. Conjunctivae were clear. NECK: Supple without any masses. Trachea midline no deviation. No JVD, CARDIAC: Regular rhythm, regular rate. S1/S2 are heard. No murmurs gallops or rubs. LUNGS: Clear to auscultation bilaterally. No wheeze, rhonchi or rales. No use of accessory muscles on inspiration or expiration. ABDOMEN: Soft, nontender. Nondistended. Bowel sounds heard in all 4 quadrants. No organomegaly or masses. Negative rebound, negative guarding EXTREMITIES: No edema, pulses are equal bilaterally. No cyanosis or clubbing NEUROLOGY: Mood and affect appear appropriate. Cranial nerves II through XII grossly intact. Moving all extremities, speech is clear Procedures Open reduction internal fixation right distal femur supracondylar intra- articular fracture 03/16/17 Assessment to: Continue Vascular Central Line Catheter: No A/P Assessment and Plan Right comminuted distal femur fracture and proximal tibia fracture with intra- articular involvement Orthopedic evaluated and patient underwent surgery on 03/16/17 with open reduction internal fixation of the right distal femur supracondylar intra- articular fracture Physical therapy recommendations indicate nonweightbearing right lower extremity Immobilizer at all times except for passive range of motion of 090. No active leg lifts or quad sets Repeat imaging requested and reviewed by orthopedic for further evaluation Daily dressing changes Pain control, patient still with postsurgical pain. Will adjust medications when appropriate Oxycodone 5 mg every 6 hours as needed for pain to5 Oxycodone 10 mg every 6 hours as needed for pain 610 Discontinue Oxycodone SR 10 mg every 12 hours Ibuprofen 600 mg 3 times daily DVT of the right lower extremity in the peroneal vein. Continue Xarelto Chronic obstructive pulmonary disease with hypercapnia, stable Possible increased hypercapnia secondary to atelectasis and narcotic use. Patient counseled significantly on increased use with incentive spirometry Maintain O2 saturations greater than 88% Decreased narcotic medication which has helped with respiratory effort Acute cholecystitis: Resolved Confirmed with CT and HIDA scan Surgery consulted and S/p cholecystectomy 03/27/17. Surgery has signed off History of Right total hip dislocation-stable Continue physical therapy No surgical intervention per orthopedist Diabetes, chronic, A1c 5.9 Continue Glucophage 850 mg daily Hypertension, blood pressure low Clonidine PRN Continue lisinopril 10 mg daily, reduce to 5 mg daily DVT prophylaxis: Luiz Pérez Discharge Planning Discharge per case management Warner Miller Apr 13, 2017 10:31
[2017-04-13] MEDS: ERGOCALCIFEROL (VIT D2) 50,000 UNIT CAP PO SCH (17:31)
[2017-04-13 20:00] VITALS: BP 94/70; PULSE 78; RESP 16; TEMP 98; O2SAT 96
[2017-04-14] MEDS: CHOLECALCIFEROL (VIT D3) 1000 UNIT TAB PO SCH (08:20)
[2017-04-14] MEDS: RIVAROXABAN 15 MG TAB PO SCH ×2 (08:20→20:22)
[2017-04-14] MEDS: PANTOPRAZOLE SOD 40 MG DELAYED RELEASE TAB PO SCH (08:20)
[2017-04-14] MEDS: CALCIUM/VITAMIN D 250 MG/125 U TAB PO SCH ×3 (08:20→15:09)
[2017-04-14] MEDS: DOCUSATE SODIUM 100 MG CAP PO SCH ×2 (08:20→20:22)
[2017-04-14] MEDS: LISINOPRIL 5 MG TAB PO SCH (08:21)
[2017-04-14] MEDS: metFORMIN HCL 850 MG TAB PO SCH (08:21)
[2017-04-14] MEDS: BACITRACIN TOP OINT 15 GM TUBE TOPICAL SCH (08:21)
[2017-04-14 08:48] VITALS: BP 109/68; PULSE 71; RESP 19; TEMP 96.1; O2SAT 96
--- NOTE | 2017-04-14 12:11 | HHI.PR ---
Subjective Remarks Patient seen and examined today for follow-up on right femur, tibia fracture. Patient doing well. Did have some mild GI upset this morning. Patient has not had a bowel movement in 2 days. Patient is wondering who will be advancing his care for discharge. I notified him that orthopedist will have final say so in when he can be released Objective Vitals Vital Signs Date Time Temp Pulse Resp B/P Pulse Ox O2 Delivery O2 Flow Rate FiO2 04/14/17 08:48 96.1 71 19 109/68 96 04/14/17 01:07 16 04/13/17 20:00 98.0 78 16 94/70 96 I/O 04/13/17 04/13/17 04/13/17 04/14/17 04/14/17 04/14/17 07:00 15:00 23:00 07:00 15:00 23:00 Intake Total 360 ml 1150 ml 480 ml 480 ml Output Total 425 ml 1200 ml 600 ml 450 ml Balance -65 ml -50 ml -120 ml 30 ml Intake Oral 360 ml 1150 ml 480 ml 480 ml Output Urine Total 425 ml 1200 ml 600 ml 450 ml # Bowel Movements 0 0 0 Result Diagram: 04/12/1730 04/12/17 0830 Objective Remarks GENERAL: Well-developed, well-nourished, in no acute distress. alert and orientated HEENT: Head is normocephalic without any lesions or masses noted. Facial features are symmetric. Eyes: Extraocular muscles are intact. Conjunctivae were clear. NECK: Supple without any masses. Trachea midline no deviation. No JVD, CARDIAC: Regular rhythm, regular rate. S1/S2 are heard. No murmurs gallops or rubs. LUNGS: Clear to auscultation bilaterally. No wheeze, rhonchi or rales. No use of accessory muscles on inspiration or expiration. ABDOMEN: Soft, nontender. Nondistended. Bowel sounds heard in all 4 quadrants. No organomegaly or masses. Negative rebound, negative guarding EXTREMITIES: No edema, pulses are equal bilaterally. No cyanosis or clubbing NEUROLOGY: Mood and affect appear appropriate. Cranial nerves II through XII grossly intact. Moving all extremities, speech is clear Procedures Open reduction internal fixation right distal femur supracondylar intra- articular fracture 03/16/17 Urinary Catheter: No Vascular Central Line Catheter: No A/P Assessment and Plan Right comminuted distal femur fracture and proximal tibia fracture with intra- articular involvement Orthopedic evaluated and patient underwent surgery on 03/16/17 with open reduction internal fixation of the right distal femur supracondylar intra- articular fracture Physical therapy recommendations indicate nonweightbearing right lower extremity Immobilizer at all times except for passive range of motion of 090. No active leg lifts or quad sets Repeat imaging requested and reviewed by orthopedic for further evaluation Daily dressing changes Pain control, patient still with postsurgical pain. Will adjust medications when appropriate Oxycodone 5 mg every 6 hours as needed for pain to5 Oxycodone 10 mg every 6 hours as needed for pain 610 Ibuprofen 600 mg 3 times daily DVT of the right lower extremity in the peroneal vein. Continue Xarelto Chronic obstructive pulmonary disease with hypercapnia, stable Possible increased hypercapnia secondary to atelectasis and narcotic use. Patient counseled significantly on increased use with incentive spirometry Maintain O2 saturations greater than 88% Decreased narcotic medication which has helped with respiratory effort Acute cholecystitis: Resolved Confirmed with CT and HIDA scan Surgery consulted and S/p cholecystectomy 03/27/17. Surgery has signed off History of Right total hip dislocation-stable Continue physical therapy No surgical intervention per orthopedist Diabetes, chronic, A1c 5.9 Continue Glucophage 850 mg daily Hypertension, blood pressure low Clonidine PRN Continue lisinopril 5 mg daily DVT prophylaxis: Luiz Pérez Discharge Planning Discharge per case management Warner Miller Apr 14, 2017 12:11
[2017-04-14 20:00] VITALS: BP 107/80; PULSE 68; RESP 16; TEMP 98.2; O2SAT 96
[2017-04-15] MEDS: BACITRACIN TOP OINT 15 GM TUBE TOPICAL SCH (09:00)
[2017-04-15] MEDS: DOCUSATE SODIUM 100 MG CAP PO SCH (09:00)
[2017-04-15] MEDS: PANTOPRAZOLE SOD 40 MG DELAYED RELEASE TAB PO SCH (09:07)
[2017-04-15] MEDS: LISINOPRIL 5 MG TAB PO SCH (09:08)
[2017-04-15] MEDS: metFORMIN HCL 850 MG TAB PO SCH (09:08)
[2017-04-15] MEDS: RIVAROXABAN 15 MG TAB PO SCH ×2 (09:08→21:19)
[2017-04-15] MEDS: CHOLECALCIFEROL (VIT D3) 1000 UNIT TAB PO SCH (09:08)
[2017-04-15] MEDS: CALCIUM/VITAMIN D 250 MG/125 U TAB PO SCH ×3 (09:08→17:53)
--- NOTE | 2017-04-15 10:31 | HHI.PR ---
Subjective Remarks Patient seen and examined today for follow-up on right femur, tibia fracture. Patient states that is doing well. He did have some abdominal discomfort yesterday, however no longer experiencing any today. Patient indicates that he spoke with case advocate yesterday about his stay in the hospital. Objective Vitals Vital Signs Date Time Temp Pulse Resp B/P Pulse Ox O2 Delivery O2 Flow Rate FiO2 04/15/17 03:33 16 04/14/17 20:00 98.2 68 16 107/80 96 I/O 04/14/17 04/14/17 04/14/17 04/15/17 04/15/17 04/15/17 07:00 15:00 23:00 07:00 15:00 23:00 Intake Total 480 ml 1730 ml 480 ml Output Total 450 ml 400 ml 250 ml Balance 30 ml 1330 ml 230 ml Intake Oral 480 ml 1730 ml 480 ml Output Urine Total 450 ml 400 ml 250 ml # Voids 3 # Bowel Movements 0 1 0 Result Diagram: 04/12/1730 04/12/17 0830 Objective Remarks GENERAL: Well-developed, well-nourished, in no acute distress. alert and orientated HEENT: Head is normocephalic without any lesions or masses noted. Facial features are symmetric. Eyes: Extraocular muscles are intact. Conjunctivae were clear. NECK: Supple without any masses. Trachea midline no deviation. No JVD, CARDIAC: Regular rhythm, regular rate. S1/S2 are heard. No murmurs gallops or rubs. LUNGS: Clear to auscultation bilaterally. No wheeze, rhonchi or rales. No use of accessory muscles on inspiration or expiration. ABDOMEN: Soft, nontender. Nondistended. Bowel sounds heard in all 4 quadrants. No organomegaly or masses. Negative rebound, negative guarding EXTREMITIES: No edema, pulses are equal bilaterally. No cyanosis or clubbing NEUROLOGY: Mood and affect appear appropriate. Cranial nerves II through XII grossly intact. Moving all extremities, speech is clear Procedures Open reduction internal fixation right distal femur supracondylar intra- articular fracture 03/16/17 Urinary Catheter: No Vascular Central Line Catheter: No A/P Assessment and Plan Right comminuted distal femur fracture and proximal tibia fracture with intra- articular involvement Orthopedic evaluated and patient underwent surgery on 03/16/17 with open reduction internal fixation of the right distal femur supracondylar intra- articular fracture Physical therapy recommendations indicate nonweightbearing right lower extremity Immobilizer at all times except for passive range of motion of 090. No active leg lifts or quad sets Repeat imaging requested and reviewed by orthopedic for further evaluation Daily dressing changes Pain control, patient still with postsurgical pain. Will adjust medications when appropriate Oxycodone 5 mg every 6 hours as needed for pain to5 Oxycodone 10 mg every 6 hours as needed for pain 610 Ibuprofen 600 mg 3 times daily DVT of the right lower extremity in the peroneal vein. Continue Xarelto Chronic obstructive pulmonary disease with hypercapnia, stable Possible increased hypercapnia secondary to atelectasis and narcotic use. Patient counseled significantly on increased use with incentive spirometry Maintain O2 saturations greater than 88% Decreased narcotic medication which has helped with respiratory effort Acute cholecystitis: Resolved Confirmed with CT and HIDA scan Surgery consulted and S/p cholecystectomy 03/27/17. Surgery has signed off History of Right total hip dislocation-stable Continue physical therapy No surgical intervention per orthopedist Diabetes, chronic, A1c 5.9 Continue Glucophage 850 mg daily Hypertension, blood pressure low Clonidine PRN Continue lisinopril 5 mg daily DVT prophylaxis: Elisa, Xarelto Discharge Planning Discharge per case management Warner Miller Apr 15, 2017 10:31
[2017-04-15 10:36] VITALS: BP 109/77; PULSE 73; RESP 16; TEMP 96.7; O2SAT 93
[2017-04-15] MEDS ORDERED: DOCUSATE SODIUM 100 MG CAP PO PRN (10:45)
[2017-04-15 20:00] VITALS: BP 96/72; PULSE 68; RESP 22; TEMP 97.5; O2SAT 100
[2017-04-16 08:02] VITALS: BP 87/65; PULSE 72; RESP 16; TEMP 97; O2SAT 96
[2017-04-16] MEDS: LISINOPRIL 5 MG TAB PO SCH (09:00)
[2017-04-16 09:30] VITALS: BP 93/66
[2017-04-16] MEDS: PANTOPRAZOLE SOD 40 MG DELAYED RELEASE TAB PO SCH (09:34)
[2017-04-16] MEDS: RIVAROXABAN 15 MG TAB PO SCH ×2 (09:34→20:33)
[2017-04-16] MEDS: CHOLECALCIFEROL (VIT D3) 1000 UNIT TAB PO SCH (09:34)
[2017-04-16] MEDS: metFORMIN HCL 850 MG TAB PO SCH (09:34)
[2017-04-16] MEDS: CALCIUM/VITAMIN D 250 MG/125 U TAB PO SCH ×3 (09:35→18:00)
--- NOTE | 2017-04-16 11:26 | HHI.PR ---
Subjective Remarks Patient seen and examined today for right femur, tibia fracture. Patient was in wheelchair with right leg up. He was in the community room and doing well. Denies any new complaints. Objective Vitals Vital Signs Date Time Temp Pulse Resp B/P Pulse Ox O2 Delivery O2 Flow Rate FiO2 04/16/17 10:34 18 04/16/17 08:02 97.0 72 16 87/65 96 04/15/17 20:00 97.5 68 22 96/72 100 I/O 04/15/17 04/15/17 04/15/17 04/16/17 04/16/17 04/16/17 07:00 15:00 23:00 07:00 15:00 23:00 Intake Total 480 ml 2040 ml 240 ml Output Total 250 ml 1550 ml 850 ml 350 ml Balance 230 ml 490 ml -610 ml -350 ml Intake Oral 480 ml 2040 ml 240 ml Output Urine Total 250 ml 1550 ml 850 ml 350 ml # Voids 4 2 # Bowel Movements 0 0 1 0 Result Diagram: 04/12/1782904/12/1730 Objective Remarks GENERAL: Well-developed, well-nourished, in no acute distress. alert and orientated HEENT: Head is normocephalic without any lesions or masses noted. Facial features are symmetric. Eyes: Extraocular muscles are intact. Conjunctivae were clear. NECK: Supple without any masses. Trachea midline no deviation. No JVD, CARDIAC: Regular rhythm, regular rate. S1/S2 are heard. No murmurs gallops or rubs. LUNGS: Clear to auscultation bilaterally. No wheeze, rhonchi or rales. No use of accessory muscles on inspiration or expiration. ABDOMEN: Soft, nontender. Nondistended. Bowel sounds heard in all 4 quadrants. No organomegaly or masses. Negative rebound, negative guarding EXTREMITIES: No edema, pulses are equal bilaterally. No cyanosis or clubbing NEUROLOGY: Mood and affect appear appropriate. Cranial nerves II through XII grossly intact. Moving all extremities, speech is clear Procedures Open reduction internal fixation right distal femur supracondylar intra- articular fracture 03/16/17 Urinary Catheter: No Vascular Central Line Catheter: No A/P Assessment and Plan Right comminuted distal femur fracture and proximal tibia fracture with intra- articular involvement Orthopedic evaluated and patient underwent surgery on 03/16/17 with open reduction internal fixation of the right distal femur supracondylar intra- articular fracture Physical therapy recommendations indicate nonweightbearing right lower extremity Immobilizer at all times except for passive range of motion of 090. No active leg lifts or quad sets Repeat imaging requested and reviewed by orthopedic for further evaluation Daily dressing changes Pain control, patient still with postsurgical pain. Will adjust medications when appropriate Oxycodone 5 mg every 6 hours as needed for pain to5 Oxycodone 10 mg every 6 hours as needed for pain 610 Ibuprofen 600 mg 3 times daily DVT of the right lower extremity in the peroneal vein. Continue Xarelto Chronic obstructive pulmonary disease with hypercapnia, stable Possible increased hypercapnia secondary to atelectasis and narcotic use. Patient counseled significantly on increased use with incentive spirometry Maintain O2 saturations greater than 88% Decreased narcotic medication which has helped with respiratory effort Acute cholecystitis: Resolved Confirmed with CT and HIDA scan Surgery consulted and S/p cholecystectomy 03/27/17. Surgery has signed off History of Right total hip dislocation-stable Continue physical therapy No surgical intervention per orthopedist Diabetes, chronic, A1c 5.9 Continue Glucophage 850 mg daily Hypertension, blood pressure low Clonidine PRN Continue lisinopril 5 mg daily DVT prophylaxis: SCDs, Xarelto Discharge Planning Discharge discharge plans once cleared by orthopedic for ambulation Warner Miller Apr 16, 2017 11:25
[2017-04-16 20:00] VITALS: BP 108/69; PULSE 76; RESP 18; TEMP 97.7; O2SAT 100
[2017-04-17 08:00] VITALS: BP 113/69; PULSE 68; RESP 18; TEMP 97.9; O2SAT 97
[2017-04-17] MEDS: metFORMIN HCL 850 MG TAB PO SCH (08:37)
[2017-04-17] MEDS: PANTOPRAZOLE SOD 40 MG DELAYED RELEASE TAB PO SCH (08:37)
[2017-04-17] MEDS: LISINOPRIL 5 MG TAB PO SCH (08:37)
[2017-04-17] MEDS: RIVAROXABAN 15 MG TAB PO SCH ×2 (08:37→21:24)
[2017-04-17] MEDS: CHOLECALCIFEROL (VIT D3) 1000 UNIT TAB PO SCH (08:37)
[2017-04-17] MEDS: CALCIUM/VITAMIN D 250 MG/125 U TAB PO SCH ×3 (08:38→17:18)
--- NOTE | 2017-04-17 11:59 | HHI.PR ---
Subjective Remarks Patient seen and examined today for right lower extremity femur tibia fracture. Patient states that with increased activity he has noticed a little more pain in his leg as well as muscle twinges. Otherwise he is doing well and plans to continue to work toward discharge Objective Vitals Vital Signs Date Time Temp Pulse Resp B/P Pulse Ox O2 Delivery O2 Flow Rate FiO2 04/17/17 08:00 97.9 68 18 113/69 97 04/16/17 20:00 97.7 76 18 108/69 100 I/O 04/16/17 04/16/17 04/16/17 04/17/17 04/17/17 04/17/17 07:00 15:00 23:00 07:00 15:00 23:00 Intake Total 240 ml 960 ml Output Total 850 ml 350 ml 850 ml Balance -610 ml -350 ml 110 ml Intake Oral 240 ml 960 ml Output Urine Total 850 ml 350 ml 850 ml # Voids 2 # Bowel Movements 1 0 0 Objective Remarks GENERAL: Well-developed, well-nourished, in no acute distress. alert and orientated HEENT: Head is normocephalic without any lesions or masses noted. Facial features are symmetric. Eyes: Extraocular muscles are intact. Conjunctivae were clear. NECK: Supple without any masses. Trachea midline no deviation. No JVD, CARDIAC: Regular rhythm, regular rate. S1/S2 are heard. No murmurs gallops or rubs. LUNGS: Clear to auscultation bilaterally. No wheeze, rhonchi or rales. No use of accessory muscles on inspiration or expiration. ABDOMEN: Soft, nontender. Nondistended. Bowel sounds heard in all 4 quadrants. No organomegaly or masses. Negative rebound, negative guarding EXTREMITIES: No edema, pulses are equal bilaterally. No cyanosis or clubbing NEUROLOGY: Mood and affect appear appropriate. Cranial nerves II through XII grossly intact. Moving all extremities, speech is clear Procedures Open reduction internal fixation right distal femur supracondylar intra- articular fracture 03/16/17 Urinary Catheter: No Vascular Central Line Catheter: No A/P Assessment and Plan Right comminuted distal femur fracture and proximal tibia fracture with intra- articular involvement Orthopedic evaluated and patient underwent surgery on 03/16/17 with open reduction internal fixation of the right distal femur supracondylar intra- articular fracture Physical therapy recommendations indicate nonweightbearing right lower extremity Immobilizer at all times except for passive range of motion of 090. No active leg lifts or quad sets Repeat imaging requested and reviewed by orthopedic for further evaluation Daily dressing changes Pain control, patient still with postsurgical pain. Will adjust medications when appropriate Oxycodone 5 mg every 6 hours as needed for pain to5 Oxycodone 10 mg every 6 hours as needed for pain 610 Ibuprofen 600 mg 3 times daily DVT of the right lower extremity in the peroneal vein. Continue Xarelto Chronic obstructive pulmonary disease with hypercapnia, stable Possible increased hypercapnia secondary to atelectasis and narcotic use. Patient counseled significantly on increased use with incentive spirometry Maintain O2 saturations greater than 88% Decreased narcotic medication which has helped with respiratory effort Acute cholecystitis: Resolved Confirmed with CT and HIDA scan Surgery consulted and S/p cholecystectomy 03/27/17. Surgery has signed off History of Right total hip dislocation-stable Continue physical therapy No surgical intervention per orthopedist Diabetes, chronic, A1c 5.9 Continue Glucophage 850 mg daily Hypertension, blood pressure low Continue lisinopril 5 mg daily, decreased to 2.5 mg daily DVT prophylaxis: SCDs, Xarelto Discharge Planning Discharge discharge plans once cleared by orthopedic for ambulation Warner Miller Apr 17, 2017 11:59
[2017-04-17] MEDS ORDERED: PILL SPLITTER OTHER PRN (12:15)
[2017-04-17 20:00] VITALS: BP 98/69; PULSE 72; RESP 20; TEMP 98.7; O2SAT 93
[2017-04-18 08:00] VITALS: BP 99/73; PULSE 68; RESP 20; TEMP 96.8; O2SAT 97
[2017-04-18] MEDS: LISINOPRIL 5 MG TAB PO SCH (09:00)
[2017-04-18] MEDS: CALCIUM/VITAMIN D 250 MG/125 U TAB PO SCH ×3 (09:42→17:42)
[2017-04-18] MEDS: CHOLECALCIFEROL (VIT D3) 1000 UNIT TAB PO SCH (09:42)
[2017-04-18] MEDS: metFORMIN HCL 850 MG TAB PO SCH (09:42)
[2017-04-18] MEDS: RIVAROXABAN 15 MG TAB PO SCH ×2 (09:42→20:30)
[2017-04-18] MEDS: PANTOPRAZOLE SOD 40 MG DELAYED RELEASE TAB PO SCH (09:42)
--- NOTE | 2017-04-18 09:57 | HHI.PR ---
Subjective Remarks Patient seen and examined today for follow-up on right femur/tibia fracture. Patient lying in bed today. States that he is doing well. He is anticipating getting out of bed shortly. Objective Vitals Vital Signs Date Time Temp Pulse Resp B/P Pulse Ox O2 Delivery O2 Flow Rate FiO2 04/18/17 08:00 96.8 68 20 99/73 97 04/17/17 20:00 98.7 72 20 98/69 93 I/O 04/17/17 04/17/17 04/17/17 04/18/17 04/18/17 04/18/17 07:00 15:00 23:00 07:00 15:00 23:00 Intake Total 600 ml 480 ml 600 ml Output Total 1150 ml 500 ml 350 ml 650 ml Balance -550 ml -20 ml 250 ml -650 ml Intake Oral 600 ml 480 ml 600 ml Output Urine Total 1150 ml 500 ml 350 ml 650 ml # Bowel Movements 0 0 0 Objective Remarks GENERAL: Well-developed, well-nourished, in no acute distress. alert and orientated HEENT: Head is normocephalic without any lesions or masses noted. Facial features are symmetric. Eyes: Extraocular muscles are intact. Conjunctivae were clear. NECK: Supple without any masses. Trachea midline no deviation. No JVD, CARDIAC: Regular rhythm, regular rate. S1/S2 are heard. No murmurs gallops or rubs. LUNGS: Clear to auscultation bilaterally. No wheeze, rhonchi or rales. No use of accessory muscles on inspiration or expiration. ABDOMEN: Soft, nontender. Nondistended. Bowel sounds heard in all 4 quadrants. No organomegaly or masses. Negative rebound, negative guarding EXTREMITIES: No edema, pulses are equal bilaterally. No cyanosis or clubbing NEUROLOGY: Mood and affect appear appropriate. Cranial nerves II through XII grossly intact. Moving all extremities, speech is clear Procedures Open reduction internal fixation right distal femur supracondylar intra- articular fracture 03/16/17 Urinary Catheter: No Vascular Central Line Catheter: No A/P Assessment and Plan Right comminuted distal femur fracture and proximal tibia fracture with intra- articular involvement Orthopedic evaluated and patient underwent surgery on 03/16/17 with open reduction internal fixation of the right distal femur supracondylar intra- articular fracture Physical therapy recommendations indicate nonweightbearing right lower extremity Immobilizer at all times except for passive range of motion of 090. No active leg lifts or quad sets Repeat imaging requested and reviewed by orthopedic for further evaluation Daily dressing changes Pain control, patient still with postsurgical pain. Will adjust medications when appropriate Oxycodone 5 mg every 6 hours as needed for pain to5 Oxycodone 10 mg every 6 hours as needed for pain 610 Ibuprofen 600 mg 3 times daily DVT of the right lower extremity in the peroneal vein. Continue Xarelto Chronic obstructive pulmonary disease with hypercapnia, stable Possible increased hypercapnia secondary to atelectasis and narcotic use. Patient counseled significantly on increased use with incentive spirometry Maintain O2 saturations greater than 88% Decreased narcotic medication which has helped with respiratory effort Acute cholecystitis: Resolved Confirmed with CT and HIDA scan Surgery consulted and S/p cholecystectomy 03/27/17. Surgery has signed off History of Right total hip dislocation-stable Continue physical therapy No surgical intervention per orthopedist Diabetes, chronic, A1c 5.9 Continue Glucophage 850 mg daily Hypertension, blood pressure low lisinopril 2.5 mg daily DVT prophylaxis: Luiz Pérez Discharge Planning Discharge discharge plans once cleared by orthopedic for ambulation Warner Miller Apr 18, 2017 09:57
[2017-04-18 20:00] VITALS: BP 117/76; PULSE 86; RESP 16; TEMP 97.8; O2SAT 94
[2017-04-19 08:00] VITALS: BP 106/68; PULSE 66; RESP 18; TEMP 97.3; O2SAT 98
[2017-04-19] MEDS: CALCIUM/VITAMIN D 250 MG/125 U TAB PO SCH ×3 (09:06→17:57)
[2017-04-19] MEDS: PANTOPRAZOLE SOD 40 MG DELAYED RELEASE TAB PO SCH (09:06)
[2017-04-19] MEDS: RIVAROXABAN 15 MG TAB PO SCH (09:06)
[2017-04-19] MEDS: CHOLECALCIFEROL (VIT D3) 1000 UNIT TAB PO SCH (09:06)
[2017-04-19] MEDS: metFORMIN HCL 850 MG TAB PO SCH (09:06)
[2017-04-19] MEDS: LISINOPRIL 5 MG TAB PO SCH (09:06)
--- NOTE | 2017-04-19 11:15 | HHI.PR ---
Subjective Remarks Patient seen and examined today for follow-up on right femur/tibia fracture. Patient states that he is becoming more active, ambulating more with walker. States that he has increased soreness due to the increase in activity. Objective Vitals Vital Signs Date Time Temp Pulse Resp B/P Pulse Ox O2 Delivery O2 Flow Rate FiO2 04/19/17 07:21 18 04/18/17 20:00 97.8 86 16 117/76 94 I/O 04/18/17 04/18/17 04/18/17 04/19/17 04/19/17 04/19/17 07:00 15:00 23:00 07:00 15:00 23:00 Intake Total 600 ml 1100 ml 480 ml 720 ml Output Total 350 ml 1375 ml 300 ml 1100 ml 300 ml Balance 250 ml -275 ml 180 ml -380 ml -300 ml Intake Oral 600 ml 1100 ml 480 ml 720 ml Output Urine Total 350 ml 1375 ml 300 ml 1100 ml 300 ml Stool Total 0 ml # Bowel Movements 0 0 0 0 Objective Remarks GENERAL: Well-developed, well-nourished, in no acute distress. alert and orientated HEENT: Head is normocephalic without any lesions or masses noted. Facial features are symmetric. Eyes: Extraocular muscles are intact. Conjunctivae were clear. NECK: Supple without any masses. Trachea midline no deviation. No JVD, CARDIAC: Regular rhythm, regular rate. S1/S2 are heard. No murmurs gallops or rubs. LUNGS: Clear to auscultation bilaterally. No wheeze, rhonchi or rales. No use of accessory muscles on inspiration or expiration. ABDOMEN: Soft, nontender. Nondistended. Bowel sounds heard in all 4 quadrants. No organomegaly or masses. Negative rebound, negative guarding EXTREMITIES: No edema, pulses are equal bilaterally. No cyanosis or clubbing NEUROLOGY: Mood and affect appear appropriate. Cranial nerves II through XII grossly intact. Moving all extremities, speech is clear Procedures Open reduction internal fixation right distal femur supracondylar intra- articular fracture 03/16/17 Urinary Catheter: No Vascular Central Line Catheter: No A/P Assessment and Plan Right comminuted distal femur fracture and proximal tibia fracture with intra- articular involvement Orthopedic evaluated and patient underwent surgery on 03/16/17 with open reduction internal fixation of the right distal femur supracondylar intra- articular fracture Physical therapy recommendations indicate nonweightbearing right lower extremity Immobilizer at all times except for passive range of motion of 090. No active leg lifts or quad sets Repeat imaging requested and reviewed by orthopedic for further evaluation Daily dressing changes Pain control, patient still with postsurgical pain. Will adjust medications when appropriate Oxycodone 5 mg every 6 hours as needed for pain to5 Oxycodone 7.5 mg every 6 hours as needed for pain 610 Ibuprofen 600 mg 3 times daily DVT of the right lower extremity in the peroneal vein. Continue Xarelto Chronic obstructive pulmonary disease with hypercapnia, stable Possible increased hypercapnia secondary to atelectasis and narcotic use. Patient counseled significantly on increased use with incentive spirometry Maintain O2 saturations greater than 88% Decreased narcotic medication which has helped with respiratory effort Acute cholecystitis: Resolved Confirmed with CT and HIDA scan Surgery consulted and S/p cholecystectomy 03/27/17. Surgery has signed off History of Right total hip dislocation-stable Continue physical therapy No surgical intervention per orthopedist Diabetes, chronic, A1c 5.9 Continue Glucophage 850 mg daily Hypertension, blood pressure low lisinopril 2.5 mg daily DVT prophylaxis: Luiz Pérez Discharge Planning Discharge discharge plans once cleared by orthopedic for ambulation Warner Miller Apr 19, 2017 11:15
[2017-04-19 20:00] VITALS: BP 94/69; PULSE 75; RESP 20; TEMP 97.2; O2SAT 95
[2017-04-20 08:00] VITALS: BP 102/66; PULSE 69; RESP 20; TEMP 96.9; O2SAT 97
[2017-04-20] MEDS: LISINOPRIL 5 MG TAB PO SCH (09:00)
[2017-04-20] MEDS: metFORMIN HCL 850 MG TAB PO SCH (09:11)
[2017-04-20] MEDS: CALCIUM/VITAMIN D 250 MG/125 U TAB PO SCH ×3 (09:12→17:36)
[2017-04-20] MEDS: CHOLECALCIFEROL (VIT D3) 1000 UNIT TAB PO SCH (09:12)
[2017-04-20] MEDS: RIVAROXABAN 20 MG TAB PO SCH (09:12)
[2017-04-20] MEDS: PANTOPRAZOLE SOD 40 MG DELAYED RELEASE TAB PO SCH (09:12)
--- NOTE | 2017-04-20 10:24 | HHI.PR ---
Subjective Remarks Follow-up for R femur and tibia fractures, DVT right lower extremity, s/p cholecystitis/cholecystectomy. Patient states he is getting around. Denies any shortness of breath. Objective Vitals Vital Signs Date Time Temp Pulse Resp B/P Pulse Ox O2 Delivery O2 Flow Rate FiO2 04/20/17 07:00 18 04/19/17 20:00 97.2 75 20 94/69 95 I/O 04/19/17 04/19/17 04/19/17 04/20/17 04/20/17 04/20/17 07:00 15:00 23:00 07:00 15:00 23:00 Intake Total 720 ml 800 ml 120 ml 240 ml Output Total 1100 ml 750 ml 900 ml 1000 ml 900 ml Balance -380 ml 50 ml -780 ml -760 ml -900 ml Intake Oral 720 ml 800 ml 120 ml 240 ml Output Urine Total 1100 ml 750 ml 900 ml 1000 ml 900 ml # Bowel Movements 0 0 0 0 Objective Remarks GENERAL: Well-nourished well developed male in no apparent distress. CARDIOVASCULAR: Regular rate and rhythm. RESPIRATORY: No accessory muscle use. Clear to auscultation. Breath sounds equal bilaterally. GASTROINTESTINAL: Normoactive bowel sounds x 4. Abdomen soft, non-tender, non- distended. MUSCULOSKELETAL: RLE with CKS. 2+ right DP and TP pulses. No swelling of the R foot. NEUROLOGICAL: Awake and alert. Normal speech. PSYCHIATRIC: Appropriate mood and affect. Procedures Open reduction internal fixation right distal femur supracondylar intra- articular fracture 03/16/17 Urinary Catheter: No Vascular Central Line Catheter: No A/P Problem List: (1) Femur fracture ICD Code: S72.90XA Status: Acute (2) Diabetes ICD Code: E11.9 Status: Chronic (3) Leukocytosis ICD Code: D72.829 Status: Resolved (4) Fever ICD Code: R50.9 Status: Resolved (5) DVT of lower extremity (deep venous thrombosis) ICD Code: I82.409 Status: Acute Assessment and Plan Right comminuted distal femur fracture and proximal tibia fracture with intra- articular involvement Patient underwent surgery on 03/16/17 with open reduction internal fixation of the right distal femur supracondylar intra-articular fracture. Ortho following. Nonweightbearing right lower extremity Immobilizer at all times except for passive range of motion of knee 0-90. No active leg lifts or quad sets Daily dressing changes Pain control: Oxycodone prn q6h; Oxycontin q12h tonight. Advised to ice and elevate R leg to reduce swelling 03/29: Ortho ordered new x-rays. Ortho-last evaluated on 03/30/17, viktoriya were removed at that time. DVT RLE: Doppler US indicates nonocclusive thrombus of the peroneal vein below the knee. Right lower extremity swelling has improved. -Patient on Xarelto 15 mg po bid Fever: Likely attributed to DVT. Afebrile since 03/29/17. CBC with normal WBC count. Hypokalemia: Resolved. Acute. Acute cholecystitis: Resolved -Confirmed with CT and HIDA scan -S/p cholecystectomy 03/27/17. OP note indicate gangrenous cholecystitis. -Status post IV antibiotics -03/29: AST and Alkaline phosphatase mildly elevated, likely attributed to recent cholecystectomy. History of right total hip dislocation: Chronic, stable Continue physical therapy Diabetes: Chronic, stable. A1c 5.9 BGLs well controlled. Continue metformin. No need for sliding scale insulin. Leukocytosis, likely reactive: Resolved Anemia: Stable. Likely attributed to acute trauma/illness. -04/11: Later in the day the nurse informed me she saw patient walking in the [place] under the light and looked very pale, unwell. She states he denies dizziness. Hemoglobin was 9.2 on 03/31/17 4 days after his cholecystectomy. -04/12: Hemoglobin improved to 11.7. Hypertension: Resolved. Clonidine prn Lisinopril was decreased to 2.5 mg daily on 04/18 due to hypotension. Patient' s blood pressure again low this morning and it was held. May be able to discontinue this medication if BP remains controlled as it is likely no longer needed. Will recheck BP in the am. GI prophylaxis: po Protonix, bowel regimen. DVT prophylaxis: SCDs. Xarelto. Discharge Planning PT recommends rehab. Ortho cleared for discharge to rehabilitation when bed available. Follow-up with Dr. Sanchez or PA in 1 month. Will need front wheeled walker and wheelchair with removal legs, elevated leg rest on discharge. 04/14: Per CM patient may be a candidate for [facility] placement with hospital assistance for further recovery. Problem Qualifiers (1) Femur fracture: Qualified Code: S72.351A - Closed displaced comminuted fracture of shaft of right femur, initial encounter (2) Diabetes: Qualified Code: E11.9 - Type 2 diabetes mellitus without complication, without long-term current use of insulin (3) Leukocytosis: Qualified Code: D72.829 - Leukocytosis, unspecified type (4) DVT of lower extremity (deep venous thrombosis): Shwetha Brock Apr 20, 2017 10:24
[2017-04-20] MEDS: ERGOCALCIFEROL (VIT D2) 50,000 UNIT CAP PO SCH (17:36)
[2017-04-20 20:00] VITALS: BP 93/68; PULSE 72; RESP 19; TEMP 97.2; O2SAT 95
[2017-04-21 08:00] VITALS: BP 98/62; PULSE 75; RESP 18; TEMP 97.1; O2SAT 96
[2017-04-21] MEDS: LISINOPRIL 5 MG TAB PO SCH (09:00)
[2017-04-21] MEDS: metFORMIN HCL 850 MG TAB PO SCH (09:10)
[2017-04-21] MEDS: CALCIUM/VITAMIN D 250 MG/125 U TAB PO SCH ×3 (09:10→18:34)
[2017-04-21] MEDS: CHOLECALCIFEROL (VIT D3) 1000 UNIT TAB PO SCH (09:11)
[2017-04-21] MEDS: RIVAROXABAN 20 MG TAB PO SCH (09:11)
[2017-04-21] MEDS: PANTOPRAZOLE SOD 40 MG DELAYED RELEASE TAB PO SCH (09:11)
--- NOTE | 2017-04-21 11:07 | HHI.PR ---
Subjective Remarks Follow-up for R femur and tibia fractures, DVT right lower extremity, s/p cholecystitis/cholecystectomy. Patient has no acute complaints. Objective Vitals Vital Signs Date Time Temp Pulse Resp B/P Pulse Ox O2 Delivery O2 Flow Rate FiO2 04/21/17 08:00 97.1 75 18 98/62 96 04/21/17 07:05 16 04/20/17 20:00 97.2 72 19 93/68 95 I/O 04/20/17 04/20/17 04/20/17 04/21/17 04/21/17 04/21/17 07:00 15:00 23:00 07:00 15:00 23:00 Intake Total 240 ml 1140 ml 240 ml Output Total 1000 ml 1300 ml 500 ml 300 ml Balance -760 ml -1300 ml 640 ml -60 ml Intake Oral 240 ml 1140 ml 240 ml Output Urine Total 1000 ml 1300 ml 500 ml 300 ml # Bowel Movements 0 0 Objective Remarks GENERAL: Well-nourished well developed male in no apparent distress. CARDIOVASCULAR: Regular rate and rhythm. RESPIRATORY: No accessory muscle use. Clear to auscultation. Breath sounds equal bilaterally. GASTROINTESTINAL: Normoactive bowel sounds. Abdomen soft, non-tender, non- distended. MUSCULOSKELETAL: RLE with CKS. 2+ right DP and TP pulses. NEUROLOGICAL: Awake and alert. Normal speech. PSYCHIATRIC: Appropriate mood and affect. Procedures Open reduction internal fixation right distal femur supracondylar intra- articular fracture 03/16/17 Urinary Catheter: No Vascular Central Line Catheter: No A/P Problem List: (1) Femur fracture ICD Code: S72.90XA Status: Acute (2) Diabetes ICD Code: E11.9 Status: Chronic (3) Leukocytosis ICD Code: D72.829 Status: Resolved (4) Fever ICD Code: R50.9 Status: Resolved (5) DVT of lower extremity (deep venous thrombosis) ICD Code: I82.409 Status: Acute Assessment and Plan Right comminuted distal femur fracture and proximal tibia fracture with intra- articular involvement Patient underwent surgery on 03/16/17 with open reduction internal fixation of the right distal femur supracondylar intra-articular fracture. Ortho following. Nonweightbearing right lower extremity Immobilizer at all times except for passive range of motion of knee 0-90. No active leg lifts or quad sets Daily dressing changes Pain control: Oxycodone prn q6h; Oxycontin q12h tonight. Advised to ice and elevate R leg to reduce swelling New x-rays ordered. Ortho reevaluated patient today. I spoke with Marc Christie ; patient can be discharged provided he is going to [facility]. Follow up with Dr. Sanchez or PA in 6 weeks. DVT RLE: Doppler US indicates nonocclusive thrombus of the peroneal vein below the knee. Right lower extremity swelling has improved. -Patient on Xarelto 15 mg po bid Fever: Likely attributed to DVT. Afebrile since 03/29/17. CBC with normal WBC count. Hypokalemia: Resolved. Acute. Acute cholecystitis: Resolved -Confirmed with CT and HIDA scan -S/p cholecystectomy 03/27/17. OP note indicate gangrenous cholecystitis. -Status post IV antibiotics -03/29: AST and Alkaline phosphatase mildly elevated, likely attributed to recent cholecystectomy. History of right total hip dislocation: Chronic, stable Continue physical therapy Diabetes: Chronic, stable. A1c 5.9 BGLs well controlled. Continue metformin. No need for sliding scale insulin. Leukocytosis, likely reactive: Resolved Anemia: Stable. Likely attributed to acute trauma/illness. -04/11: Later in the day the nurse informed me she saw patient walking in the [place] under the light and looked very pale, unwell. She states he denies dizziness. Hemoglobin was 9.2 on 03/31/17 4 days after his cholecystectomy. -04/12: Hemoglobin improved to 11.7. Hypertension: Resolved. Clonidine prn Continues to be hypotensive. Discontinue Lisinopril. GI prophylaxis: po Protonix, bowel regimen. DVT prophylaxis: SCDs. Xarelto. Discharge Planning PT recommends rehab. Will need front wheeled walker and wheelchair with removal legs, elevated leg rest on discharge. 04/14: Per CM patient may be a candidate for LONGTERM placement with hospital assistance for further recovery. 04/21: I spoke with Wang Mabry who will arrange for LONGTERM placement; discharge when arrangements made. Problem Qualifiers (1) Femur fracture: Qualified Code: S72.351A - Closed displaced comminuted fracture of shaft of right femur, initial encounter (2) Diabetes: Qualified Code: E11.9 - Type 2 diabetes mellitus without complication, without long-term current use of insulin (3) Leukocytosis: Qualified Code: D72.829 - Leukocytosis, unspecified type (4) DVT of lower extremity (deep venous thrombosis): Shwetha Brock Apr 21, 2017 11:07
--- NOTE | 2017-04-21 16:20 | RADRPT ---
EXAM DATE/TIME: 04/21/2017 15:21 [facility] COMPARISON: No previous studies available for comparison. INDICATIONS : Pelvic pain. MEDICAL HISTORY : None. SURGICAL HISTORY : Right total hip placement, Right femur plate. ENCOUNTER: Subsequent ACUITY: 1 month PAIN SCORE: 7/10 LOCATION: Bilateral pelvis FINDINGS: There is erosion and fracture of the right medial acetabular wall with dislocation of the femoral com ponent superiorly. Bony sclerosis is evident. Left hemipelvis is intact. CONCLUSION: Erosion and fracture medial wall right acetabulum with dislocation of the prosthesis. . Zachariah Hernandez MD FACR on April 21, 2017 at 16:16 Board Certified Radiologist. This report was verified electronically.
--- NOTE | 2017-04-21 16:27 | RADRPT ---
EXAM DATE/TIME: 04/21/2017 15:24 [facility] COMPARISON: FEMUR RIGHT (AP & LAT/2VWS), March 29, 2017, 9:26. INDICATIONS : Post op right femur. MEDICAL HISTORY : None. SURGICAL HISTORY : Right total hip, Right femoral plate and screws. ENCOUNTER: Subsequent ACUITY: 1 month PAIN SCORE: 7/10 LOCATION: Right femur FINDINGS: Plate with screws is seen bridging the fracture of the distal femur. Alignment is anatomic. Again s een is the dislocation and deformity about the right total hip arthroplasty. CONCLUSION: Anatomic alignment about the distal femur. Zachariah Hernandez MD FACR on April 21, 2017 at 16:22 Board Certified Radiologist. This report was verified electronically.
--- NOTE | 2017-04-21 16:32 | RADRPT ---
EXAM DATE/TIME: 04/21/2017 15:26 [facility] COMPARISON: KNEE RIGHT LTD (1 OR 2 VWS), March 29, 2017, 9:26. INDICATIONS : Post op right knee. MEDICAL HISTORY : None. SURGICAL HISTORY : Right total hip placement, Right femur plate. ENCOUNTER: Subsequent ACUITY: 1 month PAIN SCORE: 7/10 LOCATION: Right knee FINDINGS: Plate with screws is seen bridging the fracture of distal femur. Alignment is anatomic. CONCLUSION: Anatomic alignment. There is a fracture of the medial plateau, anatomic alignment. Zachariah Hernandez MD FACR on April 21, 2017 at 16:23 Board Certified Radiologist. This report was verified electronically.
--- NOTE | 2017-04-21 16:58 | PD.ORT.PN ---
Subjective Subjective Remarks Pain controlled. No new complaints Objective Vitals Vital Signs Date Time Temp Pulse Resp B/P Pulse Ox O2 Delivery O2 Flow Rate FiO2 04/21/17 13:14 18 04/21/17 08:00 97.1 75 18 98/62 96 04/20/17 20:00 97.2 72 19 93/68 95 I/O 04/20/17 04/20/17 04/20/17 04/21/17 04/21/17 04/21/17 07:00 15:00 23:00 07:00 15:00 23:00 Intake Total 240 ml 1140 ml 240 ml 1130 ml Output Total 1000 ml 1300 ml 500 ml 300 ml 1000 ml Balance -760 ml -1300 ml 640 ml -60 ml 130 ml Intake Oral 240 ml 1140 ml 240 ml 1130 ml Output Urine Total 1000 ml 1300 ml 500 ml 300 ml 1000 ml # Bowel Movements 0 0 1 Imaging Last 24 hours Impressions Pelvis X-Ray 04/21/17 0000 Signed Impressions: Service Date/Time: Friday, April 21, 2017 15:21 - CONCLUSION: Erosion and fracture medial wall right acetabulum with dislocation of the prosthesis.. Zachariah Hernandez MD FACR Objective Remarks Right lower extremity: Knee immobilizer in place with clean dressings intact. incision visualized. clean and dry. intact and healed well. no erythema or drainage. +homans sign. good dorsiflexion of ankle with full sensation distally Assessment & Plan Assessment and Plan 1) Right Distal Femur Fx ORIF - 5 weeks post op 2) Right Tibial plateau fx nonoperative 3) Right Total hip dislocation - history 4) DVT right leg Nonweightbearing right lower extremity immobilizer on at all times except for passive range of motion of knee 0-90. No active leglifts or quad sets Case management for rehabilitation placement DVT prophylaxis per medical team Ortho cleared for discharge to [facility] when bed available Follow-up with Dr. Rhodes or PA in 6 weeks Horacio Christie Jr. Apr 21, 2017 16:58
[2017-04-21 20:00] VITALS: BP 102/70; PULSE 75; RESP 16; TEMP 98.6; O2SAT 94
[2017-04-22 08:00] VITALS: BP 96/84; PULSE 68; RESP 19; TEMP 96.3; O2SAT 98
[2017-04-22] MEDS: CALCIUM/VITAMIN D 250 MG/125 U TAB PO SCH ×3 (08:43→18:05)
[2017-04-22] MEDS: PANTOPRAZOLE SOD 40 MG DELAYED RELEASE TAB PO SCH (08:43)
[2017-04-22] MEDS: metFORMIN HCL 850 MG TAB PO SCH (08:43)
[2017-04-22] MEDS: CHOLECALCIFEROL (VIT D3) 1000 UNIT TAB PO SCH (08:43)
[2017-04-22] MEDS: RIVAROXABAN 20 MG TAB PO SCH (08:45)
--- NOTE | 2017-04-22 10:17 | HHI.PR ---
Subjective Remarks Follow-up for R femur and tibia fractures, DVT right lower extremity, s/p cholecystitis/cholecystectomy. Patient has no acute complaints. Objective Vitals Vital Signs Date Time Temp Pulse Resp B/P Pulse Ox O2 Delivery O2 Flow Rate FiO2 04/22/17 08:47 18 04/22/17 08:00 96.3 68 19 96/84 98 04/21/17 20:00 98.6 75 16 102/70 94 I/O 04/21/17 04/21/17 04/21/17 04/22/17 04/22/17 04/22/17 07:00 15:00 23:00 07:00 15:00 23:00 Intake Total 240 ml 1130 ml 480 ml 700 ml Output Total 300 ml 1000 ml 200 ml 400 ml 900 ml Balance -60 ml 130 ml 280 ml 300 ml -900 ml Intake Oral 240 ml 1130 ml 480 ml 700 ml Output Urine Total 300 ml 1000 ml 200 ml 400 ml 900 ml # Bowel Movements 1 0 0 Objective Remarks GENERAL: Well-nourished well developed male in no apparent distress. CARDIOVASCULAR: Regular rate and rhythm. RESPIRATORY: No accessory muscle use. Clear to auscultation. Breath sounds equal bilaterally. MUSCULOSKELETAL: RLE with CKS. Walking with PT with walker. NEUROLOGICAL: Awake and alert. Normal speech. PSYCHIATRIC: Appropriate mood and affect. Procedures Open reduction internal fixation right distal femur supracondylar intra- articular fracture 03/16/17 Urinary Catheter: No Vascular Central Line Catheter: No A/P Problem List: (1) Femur fracture ICD Code: S72.90XA Status: Acute (2) Diabetes ICD Code: E11.9 Status: Chronic (3) Leukocytosis ICD Code: D72.829 Status: Resolved (4) Fever ICD Code: R50.9 Status: Resolved (5) DVT of lower extremity (deep venous thrombosis) ICD Code: I82.409 Status: Acute Assessment and Plan Right comminuted distal femur fracture and proximal tibia fracture with intra- articular involvement Patient underwent surgery on 03/16/17 with open reduction internal fixation of the right distal femur supracondylar intra-articular fracture. Ortho following. Nonweightbearing right lower extremity Immobilizer at all times except for passive range of motion of knee 0-90. No active leg lifts or quad sets Daily dressing changes Pain control: Oxycodone prn q6h; Oxycontin q12h tonight. Advised to ice and elevate R leg to reduce swelling 04/21: New x-rays ordered. Ortho reevaluated patient today. I spoke with Marc Christie; patient can be discharged provided he is going to [facility]. Follow up with Dr. Sanchez or PA in 6 weeks. DVT RLE: Doppler US indicates nonocclusive thrombus of the peroneal vein below the knee. Right lower extremity swelling has improved. -Patient on Xarelto 15 mg po bid Fever: Likely attributed to DVT. Afebrile since 03/29/17. CBC with normal WBC count. Hypokalemia: Resolved. Acute. Acute cholecystitis: Resolved -Confirmed with CT and HIDA scan -S/p cholecystectomy 03/27/17. OP note indicate gangrenous cholecystitis. -Status post IV antibiotics -03/29: AST and Alkaline phosphatase mildly elevated, likely attributed to recent cholecystectomy. History of right total hip dislocation: Chronic, stable Continue physical therapy Diabetes: Chronic, stable. A1c 5.9 BGLs well controlled. Continue metformin. No need for sliding scale insulin. Leukocytosis, likely reactive: Resolved Anemia: Stable. Likely attributed to acute trauma/illness. -04/11: Later in the day the nurse informed me she saw patient walking in the [place] under the light and looked very pale, unwell. She states he denies dizziness. Hemoglobin was 9.2 on 03/31/17 4 days after his cholecystectomy. -04/12: Hemoglobin improved to 11.7. Hypertension: Resolved. Clonidine prn 04/22: Continues to be hypotensive. Lisinopril discontinued. GI prophylaxis: po Protonix, bowel regimen. DVT prophylaxis: SCDs. Xarelto. Discharge Planning PT recommends rehab. Will need front wheeled walker and wheelchair with removal legs, elevated leg rest on discharge. 04/14: Per CM patient may be a candidate for [facility] placement with hospital assistance for further recovery. 04/21: I spoke with Wang Mabry who will arrange for [facility] placement; discharge when arrangements made. 04/22: [facility] PT order completed. Wheelchair & walker to be arranged. CM to arrange for obtaining medications for patient. Per nurse, CM is to contact [facility] tomorrow. Will place discharge order once placement is confirmed. Problem Qualifiers (1) Femur fracture: Qualified Code: S72.351A - Closed displaced comminuted fracture of shaft of right femur, initial encounter (2) Diabetes: Qualified Code: E11.9 - Type 2 diabetes mellitus without complication, without long-term current use of insulin (3) Leukocytosis: Qualified Code: D72.829 - Leukocytosis, unspecified type (4) DVT of lower extremity (deep venous thrombosis): Shwetha Brock Apr 22, 2017 10:17
[2017-04-22] MEDS ORDERED: WHEEMIS3 (10:57)
[2017-04-22] MEDS ORDERED: WALKER WHEELS/F1 MIS (10:57)
[2017-04-22] MEDS ORDERED: ERGO1CAP30 PO (11:01)
--- NOTE | 2017-04-22 11:41 | HHI.FF ---
Face to Face Verification Diagnosis: (1) Tibia fracture (2) Femur fracture (3) DVT of lower extremity (deep venous thrombosis) Physical Therapy Order: Evaluate and Treat, Improve ambulation, Strength and gait training Instructions: 5x/week if possible I have seen patient Hayes Holley on 04/22/17. My clinical findings support the need for the requested home health care services because: Ltd mobility - disease progression Limited ability to care for self High risk of falls (NON-WB RLE) I certify that my clinical findings support that this patient is homebound because: Unsteady gait/balance Unsafe to leave home unassisted Shwetha Brock Apr 22, 2017 11:41
[2017-04-22] MEDS ORDERED: XARE20TA PO (11:48)
[2017-04-22] MEDS ORDERED: DOCU1CAP39 PO (11:48)
[2017-04-22] MEDS ORDERED: METF850 PO (11:48)
--- NOTE | 2017-04-22 11:53 | HHI.DCPOC ---
Discharge Care Plan Diagnosis: (1) Femur fracture (2) Tibia fracture (3) DVT of lower extremity (deep venous thrombosis) (4) Gangrenous cholecystitis (5) Anemia Goals to Promote Your Health * To prevent worsening of your condition and complications * To maintain your health at the optimal level Directions to Meet Your Goals Take your medications as prescribed Follow your dietary instruction Follow activity as directed Keep your appointments as scheduled Take your immunizations and boosters as scheduled If your symptoms worsen call your PCP, if no PCP go to Urgent Care Center or Emergency Room Smoking is Dangerous to Your Health. Avoid second hand smoke Call the 24-hour hour crisis hotline for domestic abuse at Shwetha Brock Apr 22, 2017 11:53
[2017-04-22] MEDS ORDERED: PERC7.5T13 PO (13:19)
[2017-04-22 20:00] VITALS: BP 97/74; PULSE 67; RESP 16; TEMP 97.2; O2SAT 94
[2017-04-23 08:00] VITALS: BP 101/64; PULSE 61; RESP 18; TEMP 96.7; O2SAT 93
--- NOTE | 2017-04-23 10:00 | HHI.PR ---
Subjective Remarks Follow-up for R femur and tibia fractures, DVT right lower extremity, s/p cholecystitis/cholecystectomy. Patient has no acute complaints. Objective Vitals Vital Signs Date Time Temp Pulse Resp B/P Pulse Ox O2 Delivery O2 Flow Rate FiO2 04/22/17 20:00 97.2 67 16 97/74 94 04/22/17 15:54 18 I/O 04/22/17 04/22/17 04/22/17 04/23/17 04/23/17 04/23/17 07:00 15:00 23:00 07:00 15:00 23:00 Intake Total 700 ml 1150 ml 480 ml 480 ml Output Total 400 ml 1800 ml 950 ml 700 ml Balance 300 ml -650 ml -470 ml -220 ml Intake Oral 700 ml 1150 ml 480 ml 480 ml Output Urine Total 400 ml 1800 ml 950 ml 700 ml # Voids 1 # Bowel Movements 0 0 0 0 Objective Remarks GENERAL: Well-nourished well developed male in no apparent distress. CARDIOVASCULAR: Regular rate and rhythm. RESPIRATORY: No accessory muscle use. Clear to auscultation. Breath sounds equal bilaterally. GASTROINTESTINAL: Normoactive bowel sounds. Abdomen soft, nontender, nondistended. MUSCULOSKELETAL: RLE with CKS. 2+ right DP and TP pulses. No swelling of the right foot. NEUROLOGICAL: Awake and alert. 5/5 dorsiflexion right foot. 4+/5 plantar flexion right foot. Normal speech. PSYCHIATRIC: Appropriate mood and affect. Procedures Open reduction internal fixation right distal femur supracondylar intra- articular fracture 03/16/17 Urinary Catheter: No Vascular Central Line Catheter: No A/P Problem List: (1) Femur fracture ICD Code: S72.90XA Status: Acute (2) Diabetes ICD Code: E11.9 Status: Chronic (3) Leukocytosis ICD Code: D72.829 Status: Resolved (4) Fever ICD Code: R50.9 Status: Resolved (5) DVT of lower extremity (deep venous thrombosis) ICD Code: I82.409 Status: Acute Assessment and Plan Right comminuted distal femur fracture and proximal tibia fracture with intra- articular involvement Patient underwent surgery on 03/16/17 with open reduction internal fixation of the right distal femur supracondylar intra-articular fracture. Ortho following. Nonweightbearing right lower extremity Immobilizer at all times except for passive range of motion of knee 0-90. No active leg lifts or quad sets Daily dressing changes Pain control: Oxycodone prn q6h; Oxycontin q12h tonight. Advised to ice and elevate R leg to reduce swelling 04/21: New x-rays performed. Ortho reevaluated patient. I spoke with Marc Christie; patient can be discharged provided he is going to [facility]. Follow up with Dr. Sanchez or PA in 6 weeks. DVT RLE: Doppler US indicates nonocclusive thrombus of the peroneal vein below the knee. Right lower extremity swelling has improved. -Patient on Xarelto 20 mg po daily. Fever: Likely attributed to DVT. Afebrile since 03/29/17. CBC with normal WBC count. Hypokalemia: Resolved. Acute. Acute cholecystitis: Resolved -Confirmed with CT and HIDA scan -S/p cholecystectomy 03/27/17. OP note indicate gangrenous cholecystitis. -Status post IV antibiotics -03/29: AST and Alkaline phosphatase mildly elevated, likely attributed to recent cholecystectomy. History of right total hip dislocation: Chronic, stable Continue physical therapy Diabetes: Chronic, stable. A1c 5.9 BGLs well controlled. Continue metformin. No need for sliding scale insulin. Leukocytosis, likely reactive: Resolved Anemia: Stable. Likely attributed to acute trauma/illness. -04/11: Later in the day the nurse informed me she saw patient walking in the [place] under the light and looked very pale, unwell. She states he denies dizziness. Hemoglobin was 9.2 on 03/31/17 4 days after his cholecystectomy. -04/12: Hemoglobin improved to 11.7. Hypertension: Resolved. Clonidine prn 04/22: Continues to be hypotensive. Lisinopril discontinued. GI prophylaxis: po Protonix, bowel regimen. DVT prophylaxis: SCDs. Xarelto. Discharge Planning PT recommends rehab. Will need front wheeled walker and wheelchair with removal legs, elevated leg rest on discharge. 04/22: [facility] PT order completed. Wheelchair & walker to be arranged. CM to arrange for obtaining medications for patient. 04/23: I was informed by binder caser that the patient will not be discharged to [facility] until Wednesday, 04/26. Problem Qualifiers (1) Femur fracture: Qualified Code: S72.351A - Closed displaced comminuted fracture of shaft of right femur, initial encounter (2) Diabetes: Qualified Code: E11.9 - Type 2 diabetes mellitus without complication, without long-term current use of insulin (3) Leukocytosis: Qualified Code: D72.829 - Leukocytosis, unspecified type (4) DVT of lower extremity (deep venous thrombosis): Shwetha Brock Apr 23, 2017 10:00
[2017-04-23] MEDS: metFORMIN HCL 850 MG TAB PO SCH (10:08)
[2017-04-23] MEDS: CALCIUM/VITAMIN D 250 MG/125 U TAB PO SCH ×3 (10:08→15:35)
[2017-04-23] MEDS: PANTOPRAZOLE SOD 40 MG DELAYED RELEASE TAB PO SCH (10:08)
[2017-04-23] MEDS: CHOLECALCIFEROL (VIT D3) 1000 UNIT TAB PO SCH (10:09)
[2017-04-23] MEDS: RIVAROXABAN 20 MG TAB PO SCH (10:13)
[2017-04-23 20:32] VITALS: BP 109/70; PULSE 59; RESP 16; TEMP 98.3; O2SAT 96
[2017-04-24 08:00] VITALS: BP 113/84; PULSE 67; RESP 16; TEMP 97.6; O2SAT 96
[2017-04-24] MEDS: CHOLECALCIFEROL (VIT D3) 1000 UNIT TAB PO SCH (08:13)
[2017-04-24] MEDS: metFORMIN HCL 850 MG TAB PO SCH (08:13)
[2017-04-24] MEDS: CALCIUM/VITAMIN D 250 MG/125 U TAB PO SCH ×3 (08:13→18:29)
[2017-04-24] MEDS: RIVAROXABAN 20 MG TAB PO SCH (08:13)
[2017-04-24] MEDS: PANTOPRAZOLE SOD 40 MG DELAYED RELEASE TAB PO SCH (08:13)
--- NOTE | 2017-04-24 09:46 | HHI.PR ---
Subjective Remarks Follow-up for R femur and tibia fractures, DVT right lower extremity, s/p cholecystitis/cholecystectomy. Patient has no acute complaints. Objective Vitals Vital Signs Date Time Temp Pulse Resp B/P Pulse Ox O2 Delivery O2 Flow Rate FiO2 04/24/17 08:00 97.6 67 16 113/84 96 04/23/17 20:32 98.3 59 16 109/70 96 I/O 04/23/17 04/23/17 04/23/17 04/24/17 04/24/17 04/24/17 07:00 15:00 23:00 07:00 15:00 23:00 Intake Total 480 ml 600 ml 240 ml Output Total 700 ml 400 ml 200 ml Balance -220 ml 200 ml 40 ml Intake Oral 480 ml 600 ml 240 ml Output Urine Total 700 ml 400 ml 200 ml # Voids 4 # Bowel Movements 0 Objective Remarks GENERAL: Well-nourished well developed male in no apparent distress. CARDIOVASCULAR: Regular rate and rhythm. RESPIRATORY: No accessory muscle use. Clear to auscultation. Breath sounds equal bilaterally. GASTROINTESTINAL: Normoactive bowel sounds. Abdomen soft, nontender, nondistended. MUSCULOSKELETAL: RLE with CKS. 2+ right DP and TP pulses. NEUROLOGICAL: Awake and alert. Normal speech. PSYCHIATRIC: Appropriate mood and affect. Procedures Open reduction internal fixation right distal femur supracondylar intra- articular fracture 03/16/17 Urinary Catheter: No Vascular Central Line Catheter: No A/P Problem List: (1) Femur fracture ICD Code: S72.90XA Status: Acute (2) Diabetes ICD Code: E11.9 Status: Chronic (3) Leukocytosis ICD Code: D72.829 Status: Resolved (4) Fever ICD Code: R50.9 Status: Resolved (5) DVT of lower extremity (deep venous thrombosis) ICD Code: I82.409 Status: Acute Assessment and Plan Right comminuted distal femur fracture and proximal tibia fracture with intra- articular involvement Patient underwent surgery on 03/16/17 with open reduction internal fixation of the right distal femur supracondylar intra-articular fracture. Ortho following. Nonweightbearing right lower extremity Immobilizer at all times except for passive range of motion of knee 0-90. No active leg lifts or quad sets Daily dressing changes Pain control: Oxycodone prn q6h; Oxycontin q12h tonight. Advised to ice and elevate R leg to reduce swelling 04/21: New x-rays performed. Ortho reevaluated patient. I spoke with Marc Christie; patient can be discharged provided he is going to [facility]. Follow up with Dr. Sanchez or PA in 6 weeks. DVT RLE: Doppler US indicates nonocclusive thrombus of the peroneal vein below the knee. Right lower extremity swelling has improved. -Patient on Xarelto 20 mg po daily. Fever: Likely attributed to DVT. Afebrile since 03/29/17. CBC with normal WBC count. Hypokalemia: Resolved. Acute. Acute cholecystitis: Resolved -Confirmed with CT and HIDA scan -S/p cholecystectomy 03/27/17. OP note indicate gangrenous cholecystitis. -Status post IV antibiotics -03/29: AST and Alkaline phosphatase mildly elevated, likely attributed to recent cholecystectomy. History of right total hip dislocation: Chronic, stable Continue physical therapy Diabetes: Chronic, stable. A1c 5.9 BGLs well controlled. Continue metformin. No need for sliding scale insulin. Leukocytosis, likely reactive: Resolved Anemia: Stable. Likely attributed to acute trauma/illness. -04/11: Later in the day the nurse informed me she saw patient walking in the [place] under the light and looked very pale, unwell. She states he denies dizziness. Hemoglobin was 9.2 on 03/31/17 4 days after his cholecystectomy. -04/12: Hemoglobin improved to 11.7. Hypertension: Resolved. Clonidine prn 04/22: Continues to be hypotensive. Lisinopril discontinued. GI prophylaxis: po Protonix, bowel regimen. DVT prophylaxis: SCDs. Xarelto. Discharge Planning PT recommends rehab. Will need front wheeled walker and wheelchair with removal legs, elevated leg rest on discharge. 04/22: [facility] PT order completed. Wheelchair & walker to be arranged. CM to arrange for obtaining medications for patient. 04/23: I was informed by gearcase assembler that the patient cannot be discharged to [facility] until Wednesday, 04/26. Problem Qualifiers (1) Femur fracture: Qualified Code: S72.351A - Closed displaced comminuted fracture of shaft of right femur, initial encounter (2) Diabetes: Qualified Code: E11.9 - Type 2 diabetes mellitus without complication, without long-term current use of insulin (3) Leukocytosis: Qualified Code: D72.829 - Leukocytosis, unspecified type (4) DVT of lower extremity (deep venous thrombosis): Shwetha Brock Apr 24, 2017 09:45
[2017-04-24 20:00] VITALS: BP 132/93; PULSE 93; RESP 20; TEMP 98.3; O2SAT 95
[2017-04-25 08:00] VITALS: BP 109/66; PULSE 66; RESP 20; TEMP 97.1; O2SAT 98
[2017-04-25] MEDS: CHOLECALCIFEROL (VIT D3) 1000 UNIT TAB PO SCH (08:50)
[2017-04-25] MEDS: CALCIUM/VITAMIN D 250 MG/125 U TAB PO SCH ×3 (08:50→18:20)
[2017-04-25] MEDS: RIVAROXABAN 20 MG TAB PO SCH (08:50)
[2017-04-25] MEDS: PANTOPRAZOLE SOD 40 MG DELAYED RELEASE TAB PO SCH (08:50)
[2017-04-25] MEDS: metFORMIN HCL 850 MG TAB PO SCH (08:50)
--- NOTE | 2017-04-25 09:25 | HHI.PR ---
Subjective Remarks Follow-up for R femur and tibia fractures, DVT right lower extremity, s/p cholecystitis/cholecystectomy. Patient has no acute complaints. Objective Vitals Vital Signs Date Time Temp Pulse Resp B/P Pulse Ox O2 Delivery O2 Flow Rate FiO2 04/25/17 08:00 97.1 66 20 109/66 98 04/24/17 20:00 98.3 93 20 132/93 95 I/O 04/24/17 04/24/17 04/24/17 04/25/17 04/25/17 04/25/17 07:00 15:00 23:00 07:00 15:00 23:00 Intake Total 240 ml 480 ml 240 ml 240 ml Output Total 200 ml 700 ml 2000 ml Balance 40 ml -220 ml 240 ml 240 ml -2000 ml Intake Oral 240 ml 480 ml 240 ml 240 ml Output Urine Total 200 ml 700 ml 2000 ml # Voids 1 2 # Bowel Movements 1 Objective Remarks GENERAL: Well-nourished well developed male in no apparent distress. CARDIOVASCULAR: Regular rate and rhythm. RESPIRATORY: No accessory muscle use. Clear to auscultation. Breath sounds equal bilaterally. GASTROINTESTINAL: Abdomen soft, nontender, nondistended. MUSCULOSKELETAL: RLE with CKS unfastened. 2+ right DP and TP pulses. NEUROLOGICAL: Awake and alert. Normal speech. PSYCHIATRIC: Appropriate mood and affect. Procedures Open reduction internal fixation right distal femur supracondylar intra- articular fracture 03/16/17 Urinary Catheter: No Vascular Central Line Catheter: No A/P Problem List: (1) Femur fracture ICD Code: S72.90XA Status: Acute (2) Diabetes ICD Code: E11.9 Status: Chronic (3) Leukocytosis ICD Code: D72.829 Status: Resolved (4) Fever ICD Code: R50.9 Status: Resolved (5) DVT of lower extremity (deep venous thrombosis) ICD Code: I82.409 Status: Acute Assessment and Plan Right comminuted distal femur fracture and proximal tibia fracture with intra- articular involvement Patient underwent surgery on 03/16/17 with open reduction internal fixation of the right distal femur supracondylar intra-articular fracture. Ortho following. Nonweightbearing right lower extremity Immobilizer at all times except for passive range of motion of knee 0-90. No active leg lifts or quad sets Daily dressing changes Pain control: Oxycodone prn q6h; Oxycontin q12h tonight. Advised to ice and elevate R leg to reduce swelling 04/21: New x-rays performed. Ortho reevaluated patient. I spoke with Marc Christie; patient can be discharged provided he is going to [facility]. Follow up with Dr. Sanchez or PA in 6 weeks. DVT RLE: Doppler US indicates nonocclusive thrombus of the peroneal vein below the knee. Right lower extremity swelling has improved. -Patient on Xarelto 20 mg po daily. Fever: Likely attributed to DVT. Afebrile since 03/29/17. CBC with normal WBC count. Hypokalemia: Resolved. Acute. Acute cholecystitis: Resolved -Confirmed with CT and HIDA scan -S/p cholecystectomy 03/27/17. OP note indicate gangrenous cholecystitis. -Status post IV antibiotics -03/29: AST and Alkaline phosphatase mildly elevated, likely attributed to recent cholecystectomy. History of right total hip dislocation: Chronic, stable Continue physical therapy Diabetes: Chronic, stable. A1c 5.9 BGLs well controlled. Continue metformin. No need for sliding scale insulin. Leukocytosis, likely reactive: Resolved Anemia: Stable. Likely attributed to acute trauma/illness. -04/11: Later in the day the nurse informed me she saw patient walking in the [place] under the light and looked very pale, unwell. She states he denies dizziness. Hemoglobin was 9.2 on 03/31/17 4 days after his cholecystectomy. -04/12: Hemoglobin improved to 11.7. Hypertension: Resolved. Clonidine prn 04/22: Continues to be hypotensive. Lisinopril discontinued. GI prophylaxis: po Protonix, bowel regimen. DVT prophylaxis: SCDs. Xarelto. Discharge Planning PT recommends rehab. Will need front wheeled walker and wheelchair with removal legs, elevated leg rest on discharge. 04/22: [facility] PT order completed. Wheelchair & walker to be arranged. CM to arrange for obtaining medications for patient. 04/23: I was informed by case investigator that the patient cannot be discharged to [facility] until Wednesday, 04/26. Problem Qualifiers (1) Femur fracture: Qualified Code: S72.351A - Closed displaced comminuted fracture of shaft of right femur, initial encounter (2) Diabetes: Qualified Code: E11.9 - Type 2 diabetes mellitus without complication, without long-term current use of insulin (3) Leukocytosis: Qualified Code: D72.829 - Leukocytosis, unspecified type (4) DVT of lower extremity (deep venous thrombosis): Shwetha Brock Apr 25, 2017 09:25
[2017-04-25 20:00] VITALS: BP 102/69; PULSE 72; RESP 22; TEMP 97; O2SAT 97
[2017-04-26 08:00] VITALS: BP 102/64; PULSE 59; RESP 18; TEMP 96.7; O2SAT 97
[2017-04-26] MEDS: CHOLECALCIFEROL (VIT D3) 1000 UNIT TAB PO SCH (08:20)
[2017-04-26] MEDS: metFORMIN HCL 850 MG TAB PO SCH (08:20)
[2017-04-26] MEDS: CALCIUM/VITAMIN D 250 MG/125 U TAB PO SCH ×2 (08:20→17:26)
[2017-04-26] MEDS: RIVAROXABAN 20 MG TAB PO SCH (08:20)
[2017-04-26] MEDS: PANTOPRAZOLE SOD 40 MG DELAYED RELEASE TAB PO SCH (08:21)
--- NOTE | 2017-04-26 10:53 | HHI.PR ---
Subjective Remarks Follow-up for right lower extremity fractures, DVT. No acute complaints. Objective Vitals Vital Signs Date Time Temp Pulse Resp B/P Pulse Ox O2 Delivery O2 Flow Rate FiO2 04/26/17 09:21 18 04/26/17 08:00 96.7 59 18 102/64 97 04/25/17 20:00 97.0 72 22 102/69 97 I/O 04/25/17 04/25/17 04/25/17 04/26/17 04/26/17 04/26/17 07:00 15:00 23:00 07:00 15:00 23:00 Intake Total 240 ml 500 ml 360 ml 360 ml Output Total 2400 ml 1400 ml 200 ml Balance 240 ml -1900 ml -1040 ml 360 ml -200 ml Intake Oral 240 ml 500 ml 360 ml 360 ml Output Urine Total 2400 ml 1400 ml 200 ml # Voids 2 2 2 # Bowel Movements 0 0 Objective Remarks GENERAL: Well-nourished well developed male in no apparent distress. CARDIOVASCULAR: Regular rate and rhythm. RESPIRATORY: No accessory muscle use. Clear to auscultation. Breath sounds equal bilaterally. GASTROINTESTINAL: Active bowel sounds. Abdomen soft, nontender, nondistended. MUSCULOSKELETAL: RLE with CKS. 2+ right DP and TP pulses. NEUROLOGICAL: Awake and alert. 5/5 dorsiflexion right foot. 4.5/5 plantar flexion right foot. Normal speech. PSYCHIATRIC: Appropriate mood and affect. Procedures Open reduction internal fixation right distal femur supracondylar intra- articular fracture 03/16/17 Urinary Catheter: No Vascular Central Line Catheter: No A/P Problem List: (1) Femur fracture ICD Code: S72.90XA Status: Acute (2) Diabetes ICD Code: E11.9 Status: Chronic (3) Leukocytosis ICD Code: D72.829 Status: Resolved (4) Fever ICD Code: R50.9 Status: Resolved (5) DVT of lower extremity (deep venous thrombosis) ICD Code: I82.409 Status: Acute Assessment and Plan 04/26: Patient was supposed be discharged to [facility] today. His discharge medications were given to the patient by nurse as the patient was going to independent area of [facility] and would be self dispensing his medications at [facility]. Apparently the patient told the nurse he had taken a stool softener and then the nurse discovered that he had also taken 8 of his Percocet 7.5/325 mg prior to discharge. He apparently took 4 Percocet at once, waited an hour, and then took 4 more. I called poison control who has filed a report but patient is under the maximum daily acetaminophen dose and is awake and alert and otherwise stable so nothing acute to do. Dr. Elder and I went to speak with the patient who states the medication we have been giving him has not been helping his pain and hence why he took so many Percocet as he is very tolerant. He is remorseful. He states he was not looking to get high. I spoke with the counter caser Lenore who has informed the [facility] of what happened. The plan is for patient to still be discharged to [facility] tomorrow morning at 9. His medications will be locked up and administered by a staff member. Dr. Elder is fine with same Percocet going with the patient to [facility] as long as it is locked up and dispensed to patient not taken on his own. Right comminuted distal femur fracture and proximal tibia fracture with intra- articular involvement Patient underwent surgery on 03/16/17 with open reduction internal fixation of the right distal femur supracondylar intra-articular fracture. Ortho following. Nonweightbearing right lower extremity Immobilizer at all times except for passive range of motion of knee 0-90. No active leg lifts or quad sets Daily dressing changes Pain control: Oxycodone 7.5 mg q6h prn. Advised to ice and elevate R leg to reduce swelling 04/21: New x-rays performed. Ortho reevaluated patient. I spoke with Marc Christie; patient can be discharged provided he is going to [facility]. Follow up with Dr. Sanchez or [facility] in 6 weeks. DVT RLE: Doppler US indicates nonocclusive thrombus of the peroneal vein below the knee. Right lower extremity swelling has improved. -Patient on Xarelto 20 mg po daily. Fever: Likely attributed to DVT. Afebrile since 03/29/17. CBC with normal WBC count. Hypokalemia: Resolved. Acute. Acute cholecystitis: Resolved -Confirmed with CT and HIDA scan -S/p cholecystectomy 03/27/17. OP note indicate gangrenous cholecystitis. -Status post IV antibiotics -03/29: AST and Alkaline phosphatase mildly elevated, likely attributed to recent cholecystectomy. History of right total hip dislocation: Chronic, stable Continue physical therapy Diabetes: Chronic, stable. A1c 5.9 BGLs well controlled. Continue metformin. No need for sliding scale insulin. Leukocytosis, likely reactive: Resolved Anemia: Stable. Likely attributed to acute trauma/illness. -04/11: Later in the day the nurse informed me she saw patient walking in the [place] under the light and looked very pale, unwell. She states he denies dizziness. Hemoglobin was 9.2 on 03/31/17 4 days after his cholecystectomy. -04/12: Hemoglobin improved to 11.7. Hypertension: Resolved. Clonidine prn 04/22: Continues to be hypotensive. Lisinopril discontinued. GI prophylaxis: po Protonix, bowel regimen. DVT prophylaxis: SCDs. Xarelto. Discharge Planning Front wheeled walker and wheelchair with removal legs, elevated leg rest provided to patient. [facility] PT order completed. has arranged for obtaining medications for patient. 04/26: Delayed discharge. See above. Patient to be discharged to [facility] tomorrow morning. Problem Qualifiers (1) Femur fracture: Qualified Code: S72.351A - Closed displaced comminuted fracture of shaft of right femur, initial encounter (2) Diabetes: Qualified Code: E11.9 - Type 2 diabetes mellitus without complication, without long-term current use of insulin (3) Leukocytosis: Qualified Code: D72.829 - Leukocytosis, unspecified type (4) DVT of lower extremity (deep venous thrombosis): Shwetha Brock Apr 26, 2017 10:53
[2017-04-26] MEDS ORDERED: traMADol HCL 50 MG TAB PO PRN (13:30)
[2017-04-26 20:00] VITALS: BP 107/68; PULSE 64; RESP 16; TEMP 96.9; O2SAT 97
[2017-04-27] MEDS: RIVAROXABAN 20 MG TAB PO SCH (07:55)
[2017-04-27] MEDS: PANTOPRAZOLE SOD 40 MG DELAYED RELEASE TAB PO SCH (07:55)
[2017-04-27] MEDS: CALCIUM/VITAMIN D 250 MG/125 U TAB PO SCH (07:55)
[2017-04-27] MEDS: CHOLECALCIFEROL (VIT D3) 1000 UNIT TAB PO SCH (07:55)
[2017-04-27] MEDS: metFORMIN HCL 850 MG TAB PO SCH (07:55)
[2017-04-27 08:00] VITALS: BP 132/82; PULSE 80; RESP 18; TEMP 97.4; O2SAT 99
== END 2017-04-27 09:17 | DRG 481 ==
LOC: NEPC 22:53 → NEDA 03-12 04:48 → NEPHCDU 03-12 06:08 → N06B 03-12 13:52 → PH5A 03-18 20:20
PROVIDERS: ADMIT Internal Medicine; ATTEND Hospitalist
PROC: 0QSB04Z Reposition Right Lower Femur with Internal Fixation Device, Open Approach (ICD-10-PCS; principal; 2017-03-16 13:13)
PROC: 0FT44ZZ Resection of Gallbladder, Percutaneous Endoscopic Approach (ICD-10-PCS; 2017-03-27)
DX: S72.451A Displaced supracondylar fracture without intracondylar extension of lower end of right femur, initial encounter for closed fracture (principal); K80.00 Calculus of gallbladder with acute cholecystitis without obstruction; E87.8 Other disorders of electrolyte and fluid balance, not elsewhere classified; E87.1 Hypo-osmolality and hyponatremia; I82.491 Acute embolism and thrombosis of other specified deep vein of right lower extremity; S82.134A Nondisplaced fracture of medial condyle of right tibia, initial encounter for closed fracture; D64.9 Anemia, unspecified; I10 Essential (primary) hypertension; E11.9 Type 2 diabetes mellitus without complications; M10.9 Gout, unspecified; E87.6 Hypokalemia; F17.210 Nicotine dependence, cigarettes, uncomplicated; T84.020D Dislocation of internal right hip prosthesis, subsequent encounter; D72.829 Elevated white blood cell count, unspecified; R50.9 Fever, unspecified; J44.9 Chronic obstructive pulmonary disease, unspecified; W10.1XXA Fall (on)(from) sidewalk curb, initial encounter; Z75.1 Person awaiting admission to adequate facility elsewhere
CPT/HCPCS: 71010; 72170; 73551; 73552; 73560; 73700; 74160; 76000; 76999; 78226; 80048; 80053; 82652; 82948; 83036; 83690; 83735; 85014; 85018; 85025; 85027; 85610; 85730; 86850; 86900; 86901; 88304; 93005; 93971; 94150; 96374; 96375; 96376; A9537; C1713; C9113; J0131; J0690; J1100; J1170; J1580; J1650; J1815; J1885; J2175; J2250; J2270; J2310; J2370; J2405; J2543; J3010; J3370; J7030; J7050; J7120; L1830; Q9967